=== PATIENT | male | born 1945 | race Caucasian/White ===

== ENCOUNTER → 2017-05-21 14:55 | Outpatient (CLI) | payer OTHER, SELFPAY ==
--- NOTE | 2017-05-21 14:59 | RAD_ITS ---
STUDY: X-RAY CHEST REASON FOR EXAM: Male, 71 years old. Cough TECHNIQUE: PA and lateral views of the chest. COMPARISON: Prior study of 06/02/2016 FINDINGS: The lungs are clear and expanded. There is no demonstrated pleural abnormality. Status post aortic root repair changes are noted. Normal mediastinum and chilango. Normal visualized pulmonary arteries. Normal visualized aortic arch and descending thoracic aorta. There are diffuse degenerative changes of the visualized thoracic spine. Normal visualized ribs, clavicles, and shoulders. There is no demonstrated abnormality of the visualized soft tissue structures of the upper abdomen. RAD/Chest PA and Lateral IMPRESSION: Status post aortic root repair changes. Degenerative changes of the thoracic spine. No acute cardiopulmonary disease process is seen. Electronically Signed: Jitendra Barber MD at 16:20 EST , Service support ,
== END ==
PROVIDERS: Family Provider Nurse Practitioner; PCP Nurse Practitioner; Visit Provider Nurse Practitioner Gerontology
DX: R09.89 Other specified symptoms and signs involving the circulatory and respiratory systems (principal)
CPT/HCPCS: 71046

== ENCOUNTER → 2017-06-06 06:54 | Outpatient (CLI) | payer OTHER, SELFPAY ==
[2017-06-06 07:11] LABS: Bacteria 0 SEEN /hpf (None Seen); Mucous, Urine 0 SEEN /hpf (<or=2+); Red Blood Cells-Urine 0 SEEN /hpf (0-5); Squamous Epithelial Cells - UA 0 SEEN /hpf (0-5); White Blood Cells 0 SEEN /hpf (0-5)
[2017-06-06 08:01] LABS: Absolute Lymphocyte Count 1.45 X10^3/ul (0.83-4.51); Absolute Neutrophil Count 4.4 X10^3/uL (2.0-7.7); Basophil# 0.03 X10^3/uL; Basophil% 0.4 % (0-1); Eosinophil# 0.11 X10^3/uL; Eosinophils% 1.6 % (0-5); Hematocrit 39.1 % (40-54); Hemoglobin 13.2 g/dl (13.0-16.5); Lymphocyte # 1.45 X10^3/ul (4.0); Lymphocyte % 20.8 % (19-41); Mean Corp Hgb Conc 33.8 g/gl (32-36); Mean Corpuscular Hgb 31.1 pg (27.0-32.0); Mean Corpuscular Volume 92.2 fL (80-94); Mean Platelet Vol. 12.9 fl (6.2-12.0); Monocyte% 14.3 % (0-10); Neutrophil # 4.38 X10^3/uL (2.7-7.7); Neutrophil % 62.8 % (47-70); POSITIVE COUNT NO; POSITIVE DIFFERENTIAL NO; POSITIVE MORPHOLOGY NO; Platelet Count 116 K/mm3 (150-450); RBC Distribution Width CV 12.3 % (11.6-14.6); RBC Distribution Width SD 40.5 fl (35.1-43.9); Red Blood Count 4.24 M/mm3 (4.6-6.2)
[2017-06-06 08:03] LABS: Color, Urine Yellow (Yellow); Glucose, Dipstick Normal (Normal); Ketone-Dipstick Negative (Negative); Leukocyte Esterase-Dipstick Negative /ul (Negative); Nitrite-Dipstick Negative (Negative); Occult Blood-Urine Negative /ul (Negative); Protein-Dipstick Negative (Negative); Specific Gravity, Urine 1.005 (1.002-1.030); Urine Bilirubin Dipstick Negative (Negative); Urine Clarity Clear (Clear); Urine Urobilinogen Normal (Normal)
[2017-06-06 08:45] LABS: AST(SGOT) 24 U/L (15-37); Alanine Aminotransfer ALT/SGPT 27 U/L (16-61); Albumin, Serum 3.8 g/dL (3.2-5.0); Alkaline Phosphatase 29 U/L (45-117); Anion Gap 8 (5-15); BUN 14 mg/dL (7-18); BUN/Creat Ratio 17.4 RATIO (10-20); Bilirubin, Direct 0.11 mg/dL (0.00-0.30); Calcium,Total 8.6 mg/dL (8.5-10.1); Chloride 101 mmol/L (98-107); Cholesterol 119 mg/dL (200); Creatinine, Serum 0.81 mg/dL (0.70-1.30); EST Glomerular Filtration Rate 100 mL/min (>60); Est Glom Filt Rate - Afr Amer 121 mL/min (>60); Globulin 3.4 g/dL (2.2-4.2); Glucose 149 mg/dL (74-106); High Density Lipoprotein 38 mg/dL; Potassium 4.2 mmol/L (3.5-5.1); Protein, Total 7.2 g/dL (6.4-8.2); Sodium Level 136 mmol/L (136-145); Thyroid Stim Hormone (TSH) 2.13 uIU/mL (0.358-3.74); Triglycerides 159 mg/dL; Very Low Density Lipoprotein 32 mg/dL (5-40)
== END ==
PROVIDERS: Family Provider Nurse Practitioner; PCP Nurse Practitioner; Visit Provider Physician Assistant Medical
DX: E78.5 Hyperlipidemia, unspecified (principal); Z79.899 Other long term (current) drug therapy
CPT/HCPCS: 80048; 80061; 80076; 81001; 84443; 85025

== ENCOUNTER → 2017-09-24 12:44 | Outpatient (CLI) | payer OTHER, SELFPAY ==
--- NOTE | 2017-09-24 12:46 | ECHOCS_ITS ---
Reason For Study: TAVR Procedure This was a 2D Doppler, Color Flow transthoracic echocardiogram. The exam was of poor technical quality due to diminished acoustic windows. The study was technically difficult. Contrast injection was performed. Exam performed in department. Left Ventricle Normal LV size. Left ventricular systolic function is normal. The estimated ejection fraction is 65 %. Normal diastology for age. No regional wall motion abnormalities noted. Right Ventricle Normal RV size. Normal systolic function. Atria The left atrium is mildly enlarged. Normal right atrium. No doppler evidence for ASD. Mitral Valve There is mild mitral annular calcification. Mild diffuse mitral valve thickening. Trivial mitral valve insufficiency. Tricuspid Valve Normal tricuspid valve. Trivial tricuspid valve insufficiency. Unable to estimate RV systolic pressure/pulmonary artery pressure due to technically difficult study. Aortic Valve Stable appearing bioprosthetic aortic valve apparatus. Pulmonic Valve The pulmonic valve is not well visualized. Great Vessels Normal sized aortic root. Pericardium/Pleural No pericardial effusion. Medication 22 gauge I.V. with prn adaptor inserted into right arm. Diluted definity 2ml given slow IV push to enhance endocardial definition. MMode/2D Measurements & Calculations LVIDd: 4.1 cm IVSd: 1.2 cm LVOT diam: 2.0 cm LVIDs: 2.2 cm LVPWd: 1.3 cm LVOT area: 3.0 cm2 FS: 46.2 % ACS: 1.6 cm LAV(MOD-sp4): 48.4 ml LA A4 area: 19.0 cm2 LA dimension: 4.4 cm RA A4 area: 14.4 cm2 Time Measurements MV dec time: 0.33 sec Doppler Measurements & Calculations MV E max jaspal: 85.4 cm/sec Lat Peak E' Jaspal: 9.5 cm/sec Med Peak E' Jaspal: 8.3 cm/sec MV A max jaspal: 126.0 cm/sec E/E' lat: 9.0 E/E' med: 10.3 MV E/A: 0.68 MV V2 max: 122.1 cm/sec MV P1/2t max jaspal: 117.6 cm/sec Ao V2 max: 245.7 cm/sec MV max P.0 mmHg MV P1/2t: 77.3 msec Ao max P.1 mmHg MV V2 mean: 72.1 cm/sec MV dec slope: 445.8 cm/sec2 Ao V2 mean: 165.2 cm/sec MV mean P.4 mmHg MVA(P1/2t): 2.8 cm2 Ao mean P.4 mmHg MV V2 VTI: 34.3 cm Ao V2 VTI: 45.9 cm MVA(VTI): 2.1 cm2 NICHOLAS(I,D): 1.6 cm2 NICHOLAS(V,D): 1.2 cm2 LV V1 max: 98.9 cm/sec SV(LVOT): 71.9 ml PA V2 max: 64.2 cm/sec LV V1 max P.9 mmHg LV V1 mean P.2 mmHg LV V1 mean: 69.2 cm/sec LV V1 VTI: 23.8 cm Interpretation Summary The study was technically difficult. Contrast injection was performed. Left ventricular systolic function is normal. The estimated ejection fraction is 65 %. The left atrium is mildly enlarged. There is mild mitral annular calcification. Mild diffuse mitral valve thickening. Trivial mitral valve insufficiency. Trivial tricuspid valve insufficiency. Stable appearing bioprosthetic aortic valve apparatus. Unable to estimate RV systolic pressure/pulmonary artery pressure due to technically difficult study. Normal diastology for age. Ordering Physician: Ken Fitzgerald Referring Physician: Ken Fitzgerald Performed By: Sav Snyder RCS
== END ==
PROVIDERS: Family Provider Nurse Practitioner; PCP Nurse Practitioner; Visit Provider Internal Medicine Cardiovascular Disease
DX: Z95.2 Presence of prosthetic heart valve (principal)
CPT/HCPCS: 93306; Q9957; A4216; C8929

== ENCOUNTER → 2017-10-06 14:13 | Outpatient (CLI) | payer OTHER, SELFPAY ==
[2017-10-06 16:34] LABS: PSA,Total - Annual Screen 4.02 ng/mL (0.00-4.00)
== END ==
PROVIDERS: Family Provider Nurse Practitioner; PCP Nurse Practitioner; Visit Provider Urology
DX: Z12.5 Encounter for screening for malignant neoplasm of prostate (principal)
CPT/HCPCS: 36415; 84153; G0103

== ENCOUNTER 2017-12-16 14:30 | Outpatient (RCR) | payer OTHER, SELFPAY ==
--- NOTE | 2017-08-26 19:01 | MASS.EVAL_ITS ---
Massage Therapy Evaluation: Initial Evaluation Date: 08/13/2017 SUBJECTIVE: Luigi is a 71 year old male who was referred to the [facility] facility for a massotherapy evaluation by Dr. Sharyn Aguilar with the diagnosis of msucle pain. Luigi presents today with the symptoms of neck and upper back pain and tension. He complains of low back and hips. This low back and Right hip pain is due to a fall. OBJECTIVE: Upon observation Luigi has poor posture with his head forward and shoulders forward from the neutral position in sitting and standing. After examination and palpation I found Luigi to have very high muscle tension with tenderness and myofascial restrictions in his sub occipitals, trapezius, rhomboids, scalenes, thoracic paraspinals. His hips and lumbar region were also tight. The first treatment consisted of a one hour massage to his full body with myofascial release, muscle stripping, trigger point compression techniques, and cervical manual traction. ASSESSMENT: I feel that Luigi is a good candidate for massotherapy at this time. He had a favorable response to the first treatment with reduction in his muscle aches, pain and tension. He also had improvement in his cervical flexibility. PLAN: The plan of care was reviewed with the patient. The patient is to be seen on as needed basis for a total of ten sessions with the recommendation of once every four weeks for a one hour treatment. Viviane Prieto LMT
--- NOTE | 2018-03-23 13:41 | MASS.DISCH ---
Massage Therapy Discharge Summary: Discharge Date: 03/23/2018 Luigi was seen for a massotherapy evaluation on 08/20/2017 with the diagnosis of muscle pain. He was treated with Five sessions of massage therapy consisting of light to moderate pressure soft tissue techniques, myofascial release and trigger point compression to his cervical, thoracic, lower back, upper extremities and hips. Luigi responded well to the therapy by reporting decreased tension and pain throughout his neck, shoulders, lower back and hips. His goals for therapy were not met due to no follow up treatment sessions performed but stated massage helped him. At this time this patient is being discharged from our care at [facility] facility.
== END 2017-12-16 19:00 | disposition home or self-care (01) ==
LOC: MASS 14:30
PROVIDERS: Family Provider Nurse Practitioner; PCP Nurse Practitioner; Visit Provider Nurse Practitioner
DX: M79.1 Myalgia (principal)
CPT/HCPCS: 97124

== ENCOUNTER → 2017-12-23 13:41 | Outpatient (CLI) | payer OTHER, SELFPAY ==
--- NOTE | 2017-12-23 13:45 | RAD_ITS ---
STUDY: X-RAY - LUMBAR SPINE REASON FOR EXAM: Male, 72 years old. Injury in September, pain, increased recently. Trouble getting from sitting to standing. TECHNIQUE: 5 view(s) of the lumbar spine were obtained. COMPARISON: None FINDINGS: There is straightening of the normal lumbar lordosis. There is no substantial scoliosis. There is a normal alignment of the vertebrae. There is multilevel endplate spondylosis of the lumbar vertebrae with lateral spurring. There is multi-level degenerative disc disease with multi-level disc space narrowing. There is facet arthropathy with neural foraminal narrowing L4-5, 5 and S1. There is atherosclerotic calcification of the abdominal aorta without a demonstrated aneurysm. RAD/L/S Spine Min 4 Views IMPRESSION: Degenerative changes as above, neural foraminal narrowing L4-5, 5 S1 with facet arthropathy. There is straightening of the normal lordotic curve, a nonspecific finding, which may be due to positioning or which might be due to muscle spasm. Electronically Signed: Chanda Pinzon MD at 8:11 EDT , Service support ,
== END ==
PROVIDERS: Family Provider Nurse Practitioner; PCP Nurse Practitioner; Visit Provider Nurse Practitioner
DX: M54.5 Low back pain (principal)
CPT/HCPCS: 72110

== ENCOUNTER 2018-01-15 14:00 | Outpatient (RCR) | payer OTHER, SELFPAY ==
--- NOTE | 2017-12-25 15:15 | HP.PTEVAL_ITS ---
Patient's Visit Information FELICIA MIRELES is a 72 year old M referred to Physical Therapy by Sharyn Aguilar with a diagnosis of LBP. Date of Evaluation: 12/25/17 Physical Therapist: Jay Wharton PT, - Visit Plan Frequency: 2-3x /Week Duration: 4 Weeks Plan: Postural edu, SKTC/DKTC, core stab ex's, nustep, and HEP - Subjective Subjective: Pt reports he fell three momths ago while falling at [place]. Pt reports he has not had any kind of treatment for his LBP except for an injection and 5 massage therapy appointments which have not helped. Pain is centralized for the most part. Every now and then pt reports of a pain that extends down his R hip region to the lateral mid thigh. Pt reports his pain is worse with prolonged sitting. Pt reports he also gets increased pain with prolonged standing and walking. Pt has had xrays, which revealed deg changes throughout. Pt notes diff with sleep secondary to pain. Pt reports getting out of bed is the worst as far a pain is concerned. 3/10 at rest, 9/10 at worst ( getting out of bed in the morning.) - Pain LBP Pain Intensity (Out of 10): 3 Pain Intensity Range: 9 - Objective Neuro: B LE sensation is WNL to light touch. B patellar tendon reflex= 1/3. MMT : R hip flex, knee flex= 4-/5. All other LE's 5/5 throughout. L/S ROM: Pt is severely limited in all planes - Goals Goal 1:: Decrease LBP x 50% to aid with sleep Goal Time Frame: 4-6 Weeks Goal 2:: Increase L/S ROM x 1 grade to aid with IADL's Goal Time Frame: 4-6 Weeks Goal 3:: Increase B LE MMT x 1 grade to aid with prolonged ambulation Goal Time Frame: 4-6 Weeks Goal 4:: I with HEP Goal Time Frame: 4-6 Weeks - Rehabilitation Potential Physical Therapy Diagnosis: Pt has LBP, limited L/S ROM, and LE weakness secondary to deg changes in the L/S Rehabilitation Potential: Good - Anticipated Interventions Patient/Client Instruction: Educate patient on: Condition, Plan of Care For the Purpose of:: To improve self management Therapeutic Exercise to Include: Strength training, Endurance training, Postural training, Flexibilty training, Dynamic Lumbar Stabilization For the Purpose of:: To decrease pain, To increase ROM, To improve muscle performance and motor function Other electric stimulation: Yes Cryotherapy (ice pack, ice massage): Yes Thermo therapy (hot pack): Yes For the Purpose of:: To decrease pain Thank you for the opportunity to evaluate your patient. For Medicare and Medicare HMO plans, please review the plan of care and approve it. It will need to be FAXED BACK to us at [phone] for Medicare purposes. Please let me know if there are questions or concerns regarding this plan of care. Physician Signature: Date:
--- NOTE | 2018-01-15 14:33 | HP.PTDCSUM ---
HP - PT D/C Summary It has been my pleasure to treat FELICIA MIRELES under orders from Sharyn Aguilar NP, for the diagnosis of LBP for a total of 10 visit(s). Discharge Date: Please see the following information for a summary of their discharge status. - Subjective Subjective: Minor pain this date - Pain LBP Pain Intensity (Out of 10): 1 - Overall Improvement % Improvement: 80 - Objective Objective/Function: LBP 04/15 today. Pt is now I with HEP. B LE MMT 5/5 throughout. All ROM in LB is WNL with exception to ext which is moderately limited - Goals Goal 1:: Decrease LBP x 50% to aid with sleep Goal Progress: Goal Met Goal 2:: Increase L/S ROM x 1 grade to aid with IADL's Goal Progress: Progressing Goal 3:: Increase B LE MMT x 1 grade to aid with prolonged ambulation Goal Progress: Goal Met Goal 4:: I with HEP Goal Progress: Goal Met - Plan Plan: Discharge - D/C Information If there are questions or concerns regarding this patient's physical therapy, please feel free to call me at [phone]. Thank you for the referral of this patient. Sincerely, Jay Wharton, PT,
== END 2018-01-15 19:00 | disposition home or self-care (01) ==
LOC: PT 14:00
PROVIDERS: Family Provider Nurse Practitioner; PCP Nurse Practitioner; Visit Provider Nurse Practitioner
DX: M54.5 Low back pain (principal)
CPT/HCPCS: 97014; 97110; 97161; 97530; G0283

== ENCOUNTER → 2018-10-16 07:07 | Outpatient (CLI) | payer OTHER, SELFPAY ==
[2018-04-14 14:00] VITALS: BMI 30.9
[2018-10-16 08:15] LABS: AST(SGOT) 22 U/L (15-37); Alanine Aminotransfer ALT/SGPT 23 U/L (16-61); Albumin, Serum 3.8 g/dL (3.2-5.0); Alkaline Phosphatase 33 U/L (45-117); Bilirubin, Direct 0.11 mg/dL (0.00-0.30); Cholesterol 110 mg/dL (200); High Density Lipoprotein 36 mg/dL; Protein, Total 6.8 g/dL (6.4-8.2); Triglycerides 136 mg/dL; Very Low Density Lipoprotein 27 mg/dL (5-40)
== END ==
PROVIDERS: Family Provider Nurse Practitioner; PCP Nurse Practitioner; Referring Provider Internal Medicine Cardiovascular Disease; Visit Provider Internal Medicine Cardiovascular Disease
DX: E78.2 Mixed hyperlipidemia (principal)
CPT/HCPCS: 36415; 80061; 80076

== ENCOUNTER → 2018-11-09 13:41 | Outpatient (CLI) | payer OTHER, SELFPAY ==
[2018-10-21 14:00] VITALS: BMI 30.9
--- NOTE | 2018-11-09 13:43 | ECHOCS_ITS ---
Reason For Study: VALVE REPLACEMENT Procedure This was a 2D Doppler, Color Flow transthoracic echocardiogram. The study was technically difficult. Contrast injection was performed. Exam performed in department. Left Ventricle Normal LV size. Left ventricular systolic function is normal. The estimated ejection fraction is 65 %. Post operative septal motion. No evidence for diastolic dysfunction. No regional wall motion abnormalities noted. Right Ventricle Normal RV size. Normal systolic function. Atria The left atrium is mildly enlarged. Normal right atrium. No doppler evidence for ASD. Mitral Valve There is no mitral annular calcification. Mild diffuse mitral valve thickening. Mild focal mitral valve calcification of the anterior leaflet. Trivial mitral valve insufficiency. Tricuspid Valve Normal tricuspid valve. Trivial tricuspid valve insufficiency. Right ventricular systolic pressure estimated to be 22 mmHg. Aortic Valve Stable appearing bioprosthetic aortic valve apparatus. Pulmonic Valve The pulmonic valve is not well visualized. Great Vessels Normal sized aortic root. Pericardium/Pleural No pericardial effusion. Medication 22 gauge I.V. with prn adaptor inserted into right arm. Diluted definity 4ml given slow IV push to enhance endocardial definition. MMode/2D Measurements & Calculations LVIDd: 4.4 cm IVSd: 0.90 cm LVOT diam: 2.0 cm LVIDs: 3.0 cm LVPWd: 0.99 cm RVDd: 4.2 cm FS: 32.0 % LVOT area: 3.2 cm2 Ao root diam: 3.3 cm LAV(MOD-bp): 60.2 ml EDV(MOD-sp4): 99.5 ml LAV(MOD-bp) Indexed: 27.5 ml/m2 ESV(MOD-sp4): 41.1 ml LAV(MOD-sp2): 51.4 ml EF(MOD-sp4): 58.7 % LAV(MOD-sp4): 63.3 ml EDV(MOD-sp2): 113.7 ml SV(MOD-sp4): 58.4 ml SV(MOD-sp2): 67.6 ml EF(MOD-sp2): 59.5 % LA dimension(2D): 4.1 cm LA A4 area: 20.4 cm2 RA A4 area: 13.4 cm2 Time Measurements MV dec time: 0.22 sec Doppler Measurements & Calculations MV E max jaspal: 97.7 cm/sec Lat Peak E' Jaspal: 8.8 cm/sec Med Peak E' Jaspal: 7.8 cm/sec MV A max jaspal: 117.8 cm/sec E/E' lat: 11.1 E/E' med: 12.5 MV E/A: 0.83 MV V2 max: 108.8 cm/sec Ao V2 max: 242.7 cm/sec LV V1 max: 97.0 cm/sec MV max P.7 mmHg Ao max P.6 mmHg LV V1 max P.8 mmHg MV V2 mean: 64.7 cm/sec Ao V2 mean: 174.8 cm/sec LV V1 mean P.3 mmHg MV mean P.9 mmHg Ao mean P.6 mmHg LV V1 mean: 72.6 cm/sec MV V2 VTI: 36.9 cm Ao V2 VTI: 52.6 cm LV V1 VTI: 22.9 cm MVA(VTI): 2.0 cm2 NICHOLAS(I,D): 1.4 cm2 NICHOLAS(V,D): 1.3 cm2 SV(LVOT): 72.6 ml TR max jaspal: 218.1 cm/sec MV P1/2t-pr_phl: 77.3 msec TR max P.1 mmHg Interpretation Summary The study was technically difficult. Contrast injection was performed. Left ventricular systolic function is normal. The estimated ejection fraction is 65 %. Post operative septal motion. The left atrium is mildly enlarged. Mild diffuse mitral valve thickening. Mild focal mitral valve calcification of the anterior leaflet. Trivial mitral valve insufficiency. Trivial tricuspid valve insufficiency. Stable appearing bioprosthetic aortic valve apparatus. Right ventricular systolic pressure estimated to be 22 mmHg. No evidence for diastolic dysfunction. Ordering Physician: Ken Fitzgerald Referring Physician: MICHELLE ISAAC Performed By: Eloisa Velasquez, RDCS, RVT
== END ==
PROVIDERS: Family Provider Nurse Practitioner; PCP Nurse Practitioner; Referring Provider Internal Medicine Cardiovascular Disease; Visit Provider Internal Medicine Cardiovascular Disease
DX: Z95.2 Presence of prosthetic heart valve (principal)
CPT/HCPCS: 93306; Q9957; A4216; C8929

== ENCOUNTER → 2019-02-12 06:56 | Outpatient (CLI) | payer OTHER, SELFPAY ==
[2018-10-21 14:00] VITALS: BMI 30.9
[2019-02-12 08:42] LABS: Hemoglobin A1c 7.7 % (4.2-6.3)
[2019-02-12 08:47] LABS: ALB/GLOB Ratio 1.2 RATIO (0.9-2.4); AST(SGOT) 18 U/L (15-37); Alanine Aminotransfer ALT/SGPT 28 U/L (16-61); Albumin, Serum 4.1 g/dL (3.2-5.0); Alkaline Phosphatase 39 U/L (45-117); Anion Gap 6 (5-15); BUN 17 mg/dL (7-18); BUN/Creat Ratio 19.9 RATIO (10-20); Calcium,Total 8.9 mg/dL (8.5-10.1); Chloride 103 mmol/L (98-107); Creatinine, Serum 0.86 mg/dL (0.70-1.30); EST Glomerular Filtration Rate 93 mL/min (>60); Est Glom Filt Rate - Afr Amer 113 mL/min (>60); Globulin 3.3 g/dL (2.2-4.2); Glucose 171 mg/dL (74-106); Magnesium 1.8 mg/dL (1.6-2.6); PSA,Total - Annual Screen 3.86 ng/mL (0.00-4.00); Potassium 4.2 mmol/L (3.5-5.1); Protein, Total 7.4 g/dL (6.4-8.2); Sodium Level 136 mmol/L (136-145); Thyroid Stim Hormone (TSH) 2.98 uIU/mL (0.358-3.74)
== END ==
PROVIDERS: Family Provider Nurse Practitioner; PCP Nurse Practitioner; Referring Provider Nurse Practitioner; Visit Provider Nurse Practitioner
DX: I11.9 Hypertensive heart disease without heart failure (principal); E83.42 Hypomagnesemia; E11.9 Type 2 diabetes mellitus without complications; Z12.5 Encounter for screening for malignant neoplasm of prostate
CPT/HCPCS: 36415; 80053; 83036; 83735; 84153; 84443; G0103

== ENCOUNTER → 2020-06-02 06:47 | Outpatient (CLI) | payer OTHER, SELFPAY ==
[2018-10-21 14:00] VITALS: BMI 30.9
[2020-05-21 15:54] VITALS: BMI 30.8
[2020-06-02 07:57] LABS: Absolute Lymphocyte Count 1.59 X10^3/uL (0.83-4.51); Absolute Neutrophil Count 3.3 X10^3/uL (2.0-7.7); Basophil# 0.03 X10^3/uL; Basophil% 0.5 % (0-1); Eosinophil# 0.09 X10^3/uL; Eosinophils% 1.6 % (0-5); Hematocrit 41.7 % (40-54); Hemoglobin 14.1 g/dL (13.0-16.5); Lymphocyte # 1.59 X10^3/ul (4.0); Lymphocyte % 27.7 % (19-41); Mean Corp Hgb Conc 33.8 g/dL (32-36); Mean Corpuscular Hgb 31.3 pg (27.0-32.0); Mean Corpuscular Volume 92.5 fL (80-94); Mean Platelet Vol. 12.4 fl (6.2-12.0); Monocyte# 0.71 X10^3/uL; Monocyte% 12.3 % (0-10); NRBC Flagged by Analyzer 0 % (0-5); Neutrophil # 3.32 X10^3/uL (2.7-7.7); Neutrophil % 57.7 % (47-70); Platelet Count 139 K/mm3 (150-450); RBC Distribution Width SD 41.2 fl (35.1-43.9); Red Blood Count 4.51 M/mm3 (4.6-6.2); White Blood Count 5.8 K/mm3 (4.4-11.0)
[2020-06-02 08:26] LABS: Microalbumin,Random Urine 13.5 mg/L (NO RANGE EST.); Microalbumin:Creatinine Ratio 31.9 mg/g CRE (<30 mg/g CRE)
[2020-06-02 08:35] LABS: ALB/GLOB Ratio 1.2 RATIO (0.9-2.4); AST(SGOT) 17 U/L (15-37); Alanine Aminotransfer ALT/SGPT 31 U/L (16-61); Albumin, Serum 3.9 g/dL (3.2-5.0); Alkaline Phosphatase 40 U/L (45-117); Anion Gap 7 (5-15); BUN 18 mg/dL (7-18); BUN/Creat Ratio 20.2 RATIO (10-20); Chloride 100 mmol/L (98-107); Cholesterol 115 mg/dL (200); Creatinine, Serum 0.89 mg/dL (0.70-1.30); EST Glomerular Filtration Rate 89 mL/min (>60); Est Glom Filt Rate - Afr Amer 107 mL/min (>60); Globulin 3.2 g/dL (2.2-4.2); Glucose 206 mg/dL (74-106); High Density Lipoprotein 43 mg/dL; PSA,Total - Annual Screen 3.76 ng/mL (0.00-4.00); Protein, Total 7.1 g/dL (6.4-8.2); Sodium Level 135 mmol/L (136-145); Thyroid Stim Hormone (TSH) 3.59 uIU/mL (0.358-3.74); Triglycerides 139 mg/dL; Very Low Density Lipoprotein 28 mg/dL (5-40)
[2020-06-02 09:11] LABS: Hemoglobin A1c 8.1 % (3.8-5.6)
== END ==
PROVIDERS: PCP Nurse Practitioner; Visit Provider Nurse Practitioner Adult Health
DX: I11.9 Hypertensive heart disease without heart failure (principal); R97.20 Elevated prostate specific antigen [PSA]; E11.9 Type 2 diabetes mellitus without complications; Z12.5 Encounter for screening for malignant neoplasm of prostate
CPT/HCPCS: 36415; 80053; 80061; 82043; 82570; 83036; 84153; 84443; 85025; G0103

== ENCOUNTER → 2020-06-05 06:26 | Outpatient (CLI) | payer OTHER, SELFPAY ==
[2020-05-21 15:54] VITALS: BMI 30.8
--- NOTE | 2020-06-05 08:36 | STRESSREP ---
Stress Test Report Date: Procedure: Pharmacologic stress nuclear imaging study Indications: Chest pain; CAD; PCI; CABG; status post TAVR Consent: Per the patient Procedure: The patient underwent pharmacologic (Regadenoson 0.4mg ) evaluation with a peak heart rate of 95 beats per minute (65%predicted maximal heart rate) and a peak blood pressure of 150/70 mmHg. The baseline ECG demonstrated normal sinus rhythm; poor R wave progression; nonspecific ST segment abnormality. The peak pharmacologic ECG demonstrated T wave abnormality/inversion in leads II, III, aVF, and V3 through V6 with notation in recovery of somewhat more prominent ST/T wave change in the aforementioned leads with subsequent gradual resolution towards baseline. There were no cardiac dysrhythmias pretest, during pharmacologic infusion, or recovery. The patient noted epigastric discomfort which was subsequently treated with supplemental O2 and nitroglycerin sublingual spray x1 with subsequent spontaneous resolution in recovery. The examination was discontinued secondary to completion of protocol. Impression: 1. Pharmacologic (Regadenoson) evaluation 2. Peak pharmacologic ECG with T wave abnormality/inversion in leads II, III, aVF, and V3 through V6 with notation in recovery of somewhat more prominent ST/T wave change in the aforementioned leads with subsequent gradual resolution towards baseline. 3. There were no cardiac dysrhythmias pretest, during pharmacologic infusion, or recovery. 4. Nuclear images pending Myocardial perfusion imaging study: Technique: The patient was injected with 14.3 millicuries of technetium 99m Cardiolite and subsequently rest SPECT Cardiolite nuclear imaging was obtained in the horizontal long, vertical long, and short axis views. The patient underwent pharmacologic (Regadenoson) evaluation with a peak heart rate of 95 beats per minute (65% percent predicted maximal heart rate) and a peak blood pressure of 150/70 mmHg. The patient was injected with 45.0 millicuries of technetium 99m Cardiolite and subsequently stress SPECT Cardiolite nuclear imaging was obtained in the horizontal long, vertical long, and short axis views. A gated Cardiolite study at peak stress was obtained. Interpretation: Rest and stress SPECT Cardiolite nuclear imaging status post realignment, normalization, and attenuation correction, demonstrate on the preattenuation correction images an area of subtle diminished tracer uptake in portions of the basal inferolateral segments at both rest and stress which appears to be more prominent in the mid inferolateral segments status post stress and on the post attenuation correction images similar changes with respect to the basal inferolateral segment with subtle notation of diminished tracer uptake in the mid inferolateral segment status post stress. There is diminished end systolic thickening and brightening in the aforementioned areas. The gated Cardiolite study demonstrates myocardial thickening and inward wall motion. The reported LVEF is 59%. Impression: 1. Rest and stress by current nuclear imaging demonstrate myocardial perfusion changes concerning for an area of previous myocardial injury/infarction following portions of the basal inferolateral segments as well as concerning for an area of stress-induced myocardial ischemia in portions of the mid inferolateral segments. 2. The gated Cardiolite study reports an LVEF of 599%. This note was generated with [employer] software. It may contain incorrect words, spelling, and punctuation that were not noted in checking the note before signing.
== END ==
PROVIDERS: PCP Nurse Practitioner; Referring Provider Nurse Practitioner Family; Visit Provider Nurse Practitioner Family
DX: I25.111 Atherosclerotic heart disease of native coronary artery with angina pectoris with documented spasm (principal); R07.9 Chest pain, unspecified; I47.2 Ventricular tachycardia; I10 Essential (primary) hypertension; E78.2 Mixed hyperlipidemia; I47.1 Supraventricular tachycardia; Z95.1 Presence of aortocoronary bypass graft; Z95.5 Presence of coronary angioplasty implant and graft; Z95.2 Presence of prosthetic heart valve
CPT/HCPCS: 78452; 93017; A9500; A4216; J2785

== ENCOUNTER 2020-06-08 08:52 | Day surgery (SDC) | payer OTHER, SELFPAY ==
[2020-05-21 15:54] VITALS: BMI 30.8
--- NOTE | 2020-06-06 13:51 | RAD_ITS ---
STUDY: X-RAY CHEST REASON FOR EXAM: Male, 74 years old. Pre-operative TECHNIQUE: PA and lateral views of the chest. COMPARISON: 05/21/2017 FINDINGS: There is no new focal consolidation. Sternal cerclage wires are present from a prior sternotomy. The cardiac silhouettes within normal limits. Normal mediastinum and chilango. Normal visualized pulmonary arteries. Stable visualized aortic arch and descending thoracic aorta. Normal visualized thoracic spine. Normal visualized ribs, clavicles, and shoulders. There is no demonstrated abnormality of the visualized soft tissue structures of the upper abdomen. RAD/Chest PA and Lateral IMPRESSION: No acute cardiopulmonary process. Electronically Signed: Nasima Zhao MD at 17:02 EST Tel , Service support ,
[2020-06-06 14:45] LABS: International Normalized Ratio 1.1; Prothrombin Time (Protime)PT. 13.2 SECONDS (11.7-14.9)
[2020-06-07 10:47] VITALS: BMI 30.8
--- NOTE | 2020-06-07 19:24 | HP.PCM_ITS ---
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 [place] [address] OFFICE VISIT Date of Service: 05/21/20 MR#: [id number] Acct: [id number] Name: FELICIA MIRELES Rep #: [id number] : 1945 Provider: TUSHAR Anguiano Age/Sex: 74/M Location: [email or web address] Status: Signed [facility] History of Present Illness Details: FELICIA MIRELES, is a 74 M who presents to the office today for outpatient cardiovascular follow-up. Overall with respect to his history of CAD, PCI, CABG, aortic valve stenosis status post transcatheter aortic valve replacement, hyperlipidemia, and hypertension he states he is doing well. He denies arm, jaw, or neck discomfort. His exercise tolerance is stable. He denies symptoms of palpitations, lightheadedness, dizziness, near syncope, or syncopal episodes. He denies edema or claudication issues. He denies orthopnea, PND, fever, chills, blood in urine, blood in stool, or myalgia. He states noting over the last 1-2 months he noted left/center chest pain. This does not radiate. This improves with NTG and resolves in 10-15 minutes. He describes this as a steady achiness. This is worse with walking. He states when shoveling snow, this is noted after such activity. This has occurred upwards to 2-3 times a day. He rates this a 3-07/14. He denies this as prior to CABG or PCI. He states SOB over the last 1-2 months. This is noted with walking and bending. This improves with rest. This appears to be worsening. His lower extremity edema is unchanged. He states when bending forward he sometimes keep going. He states lower energy level over the last 1-2 months. He states at urology office his blood pressure was 130s/60s. Intake Vital Signs 05/21/20 Height 5 ft 11 in 05/21/20 Weight: 221 lb 05/21/20 BMI 30.8 05/21/20 BP 156/70 H 05/21/20 Blood Pressure Location Lt brachial 05/21/20 Position Sitting 05/21/20 Respiration 14 05/21/20 Pulse 73 05/21/20 Pulse Source Monitor 05/21/20 Pulse Oximetry (%) 97 05/21/20 Oxygen Delivery Method room air Intake Visit Reasons: overdue for OV Product Analyst Required: No Accompanied by: Self Is patient in pain?: No Allergies celecoxib [From Celebrex] Adverse Reaction (Verified 05/21/20 15:54) Unknown simvastatin Adverse Reaction (Verified 05/21/20 15:54) Unknown Medications Alfuzosin HCl [Uroxatral] 10 mg PO DAILY 06/10/16 [History Confirmed 05/21/20] Aspirin E.C. [Ecotrin] 81 mg PO DAILY@0800 06/10/16 [History Confirmed 05/21/20] Ranitidine HCl [Acid Channel Lip Stiffener Insoles] 150 mg PO BID 06/10/16 [History Confirmed 05/21/20] Sitagliptin Phosphate [Januvia] 100 mg PO DAILY 06/10/16 [History Confirmed 05/21/20] metFORMIN HCl [Glucophage] 1,000 mg PO BIDCM 06/10/16 [History Confirmed 05/21/20] amoxicillin 500 mg capsule 500 mg PO .COMPLEX cap 04/29/17 [History Confirmed 05/21/20] liraglutide 0.6 mg/0.1 mL (18 mg/3 mL) subcutaneous pen injector 0.6 mg SC QDAY 06/17/17 [History Confirmed 05/21/20] losartan 50 mg tablet 50 mg PO DAILY #90 tab 11/15/19 [Rx Confirmed 05/21/20] rosuvastatin 5 mg tablet 5 mg PO DAILY #90 tab 12/22/19 [Rx Confirmed 05/21/20] clopidogrel 75 mg tablet 75 mg PO DAILY #90 tab 01/11/20 [Rx Confirmed 05/21/20] isosorbide mononitrate 120 mg tablet,extended release 24 hr 120 mg PO QAM #90 tab 05/21/20 [Rx Confirmed 05/21/20] metoprolol succinate 50 mg tablet,extended release 24 hr 50 mg PO DAILY #90 tab 05/21/20 [Rx Confirmed 05/21/20] nitroglycerin 400 mcg/spray translingual 0.4 mg TRANSLINGUAL Q5M PRN #4.9 g 05/21/20 [Rx Confirmed 05/21/20] [facility] Medical History Mixed hyperlipidemia (Chronic) Essential hypertension (Chronic) Presence of stent in coronary artery (Chronic ~04/14/07) Intermittent claudication (Chronic) 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 (Chronic) Aortic stenosis (Chronic) Paroxysmal atrial tachycardia (Chronic) Paroxysmal ventricular tachycardia (Chronic) Diabetes mellitus (Chronic) Dizziness and giddiness (Chronic) Precordial chest pain (Chronic) Shortness of breath (Chronic) Hypertension (Inactive) Surgical History Presence of aortocoronary bypass graft (Chronic ~02/09/07) History of percutaneous transluminal coronary angioplasty (Chronic) H/O aortic valve replacement (Chronic ~08/20/16) History of appendectomy (Resolved) History of carpal tunnel surgery (Resolved) History of cholecystectomy (Resolved) History of shoulder surgery (Resolved) Family History Father Cancer Mother Cancer Brother CAD (coronary artery disease) Hx CABG Sister Diabetes Social History (Updated 05/22/20 @ 10:00 by Maurizio Anguiano BIBLE TEACHER, BIBLE TEACHER-C) Smoking Status: Never smoker alcohol intake: never substance use type: does not use caffeine: Yes Type: coffee what type of physical activity do you participate in: none seatbelt use: always do you feel safe at home: Yes ROS Const Const: Negative for fatigue, weakness, body ache, fever(s) or chills ENT ENT: Negative for dizziness Cardio Chest Pain: Yes Palpitations: No Edema: Bilateral Muscle aches with walking: None Resp Respiratory: Positive for SOB with activity; negative for SOB at rest, SOB orthopnea\SOB lying down or paroxysmal nocturnal dyspnea GI GI: Negative nausea, vomiting blood/hematemesis, bright, red blood in stools or black,tarry stools : Negative for hematuria or frequent nighttime urination/ nocturia Musc Musc: Negative for muscle aches/ myalgia Skin Skin: Negative non-healing lesions or rash Neuro Neuro: Negative for dizziness, lightheadedness, near syncope, syncope, ortho static symptoms or weakness Endo Endo: Negative for fatigue Allergy Allergy/Immunology: Negative for rash Cardiology Exam Const Appearance: cooperative, healthy appearing, comfortable and no acute distress Nutritional Appearance: well nourished and obese Orientation: alert, awake and oriented x3 Head Head: normal to inspection Ears: hearing grossly normal bilaterally Nose: external nose normal Face and Sinus: face symmetric Mouth: oral mucosae normal Eyes General: appearance normal, both eyes and all related structures Eyelids: eyelids normal EOM: EOM intact bilaterally Neck Neck: normal visual inspection and no JVD Carotids: normal carotid upstroke Chest Chest inspection: normal inspection of the chest, symmetric chest movement and normal respiratory effort; negative cough Auscultation: Bilateral: Clear to Auscultation Cardio Rate: regular rate Rhythm: regular rhythm Heart sounds: S1 normal and S2 normal; negative rub, gallop or murmur GI GI: normal to inspection and obese Neuro General: alert, awake, oriented x3 and CN's II-XI intact bilaterally Skin Skin: no rashes or lesions noted Extremities Pulses: Normal: Right Posterior Tibial Pulse, Left Posterior Tibial Pulse, Right Radial Pulse, Left Radial Pulse Lower Extremity Edema: None: Bilateral Psych Psychological: normal affect Assessment & Plan 1. Atherosclerosis of [place] coronary artery of [place] heart with angina pectoris with documented spasm I25.111 Plan Patient does acknowledge chest pain, shortness of breath with activity, and fatigue that is concerning for progressive coronary artery disease. His chest pain typically improves with rest and nitroglycerin. Given his previous history of coronary artery disease requiring stenting and CABG in conjunction to his symptoms, he was asked undergo stress test to evaluate further. He was asked to continue with as needed nitroglycerin. Over time, we could consider increasing isosorbide or metoprolol therapy. We could consider adding additional antianginal medications. His stress test will help guide treatment further. Orders Orders: 2 Nuclear Stress Test - Chemical 05/21/20 2. Presence of aortocoronary bypass graft Z95.1 CABG X 4, [place] to LAD, SVG sequentially to high lateral & lateral Cx & SVG independently to RCA using endovein harvest system; TAVR 08/20/16 @ [facility] Plan As noted above, he will proceed with stress test to evaluate further. Orders Orders: Nuclear Stress Test - Chemical 05/21/20 3. Presence of stent in coronary artery Z95.5 2006 Stent of ostium first marginal of CX & Bare metal stent to aorto- ostio SVG to CX 04/14/07 Plan He will continue current medical therapy which includes aspirin, Plavix, isosorbide, losartan, metoprolol, and rosuvastatin. Orders Orders: Nuclear Stress Test - Chemical 05/21/20 4. H/O aortic valve replacement Z95.2 S/P TAVR with a 26 mm Jackson Orestes 3 valve in August 2016 at [facility]; Plan His most recent echocardiogram in November 2018 showed an ejection fraction of 65% and stable appearing bioprosthetic aortic valve apparatus. We will consider repeat echocardiogram to component to his symptoms if his stress test is nonrevealing or there are no further concerns regarding coronary artery disease. Orders Orders: Nuclear Stress Test - Chemical 05/21/20 5. Paroxysmal atrial tachycardia I47.1 Plan This appears stable. He will continue current beta-ailyn medication. We will continue to monitor. Orders Orders: Nuclear Stress Test - Chemical 05/21/20 6. Paroxysmal ventricular tachycardia I47.2 Plan He will continue metoprolol therapy. We will continue to monitor. Orders Orders: Nuclear Stress Test - Chemical 05/21/20 7. Essential hypertension I10 Plan His blood pressure slightly elevated today in office. He states this is unusual for him. He was asked to monitor this closely at home. If no source of his symptoms are found and he is noted to continue with elevated blood pressure, he may benefit from tighter blood pressure control to help alleviate symptoms. Orders Orders: Nuclear Stress Test - Chemical 05/21/20 8. Mixed hyperlipidemia E78.2 Plan He will continue current statin medication. Orders Orders: 2 Nuclear Stress Test - Chemical 05/21/20 Plan Detail Other Orders Orders: Nuclear Stress Test - Chemical 05/21/20 R07.9 Other Medications Refilled: isosorbide mononitrate ER 120 mg PO QAM 90 tabs 3RF nitroglycerin (Nitrolingual) until response; do not exceed 3 doses per event 0.4 mg translingual Q5M PRN 4.9 grams 3RF chest pain metoprolol succinate ER 50 mg PO DAILY 90 tabs 3RF Additional Comments Further recommendation will be based on stress test. He will return to office in approximately 1 month to evaluate overall progress and ensure progressing as expected. Thank you for allowing us to participate in the patients plan of care, if you have any questions please do not hesitate to call. This note was generated using a voice recognition system and there may be incorrect words, spelling or punctuation that were not noted when reviewing the office note prior to saving. Follow Up 1 Month (BIBLE TEACHER/PA) 10 Months (PFM) Coding Level of Care Code Off vis,est,level 4 Diagnoses Atherosclerosis of [place] coronary artery of [place] heart with angina pectoris with documented spasm I25.111 ??[place] vs. transplanted heart: [place] heart Presence of aortocoronary bypass graft Z95.1 Presence of stent in coronary artery Z95.5 H/O aortic valve replacement Z95.2 Paroxysmal atrial tachycardia I47.1 Paroxysmal ventricular tachycardia I47.2 Essential hypertension I10 Mixed hyperlipidemia E78.2 Coding Level of Care Code Off vis,est,level 4 Diagnoses Atherosclerosis of [place] coronary artery of [place] heart with angina pectoris with documented spasm I25.111 ??[place] vs. transplanted heart: [place] heart Presence of aortocoronary bypass graft Z95.1 Presence of stent in coronary artery Z95.5 H/O aortic valve replacement Z95.2 Paroxysmal atrial tachycardia I47.1 Paroxysmal ventricular tachycardia I47.2 Essential hypertension I10 Mixed hyperlipidemia E78.2 Supplemental Info Supplemental Information Transthoracic echocardiogram: 11/09/2018: Interpretation Summary The study was technically difficult. Contrast injection was performed. Left ventricular systolic function is normal. The estimated ejection fraction is 65 %. Post operative septal motion. The left atrium is mildly enlarged. Mild diffuse mitral valve thickening. Mild focal mitral valve calcification of the anterior leaflet. Trivial mitral valve insufficiency. Trivial tricuspid valve insufficiency. Stable appearing bioprosthetic aortic valve apparatus. Right ventricular systolic pressure estimated to be 22 mmHg. No evidence for diastolic dysfunction. Transthoracic echocardiogram: 09/24/2017 Left ventricular systolic function is normal. The estimated ejection fraction is 65 %. The left atrium is mildly enlarged. There is mild mitral annular calcification. Mild diffuse mitral valve thickening. Trivial mitral valve insufficiency. Trivial tricuspid valve insufficiency. Stable appearing bioprosthetic aortic valve apparatus. Unable to estimate RV systolic pressure/pulmonary artery pressure due to technically difficult study. Normal diastology for age. Cardiac catheterization: 06/11/2016 Final impression: 1. Mild elevation of the left ventricular end-diastolic pressure compatible decreased diastolic compliance 2. Borderline elevation of the intrapulmonary right heart pressures 3. Oxygen saturation: No obvious evidence of intracardiac shunting phenomena 4. Left ventricle: A. Normal left ventricular size, wall motion, and systolic function B. Estimated LVEF is 65% 5. Left main coronary artery: A. Distal calcification and distal 75% hazy eccentric appearing stenosis in volving the bifurcation of the LAD and LCx systems 6. Left anterior descending coronary artery: A. Ostial 85% eccentric hazy appearing stenosis B. The mid to distal LAD appears to fill from competitive flow from both antegrade flow but predominantly from the [place] graft flow 7. Left circumflex coronary artery: A. Ostial calcification with ostial 75% eccentric hazy appearing stenosis B. The first OM appears to be occluded C. The first OM fills from a sequential SVG graft coming from the second OM D. The mid to distal LCx system demonstrates 50% and 25% diffuse eccentric appearing stenosis 8. Right coronary artery: A. Large dominant vessel B. Approximately 100% occluded C. Distal RCA system/right PDA fills from the SVG graft D. It demonstrates no angiographically significant appearing disease distal to the graft attachment E. It also demonstrates the appearance of right to left collateral flow coursing towards the LCx/OM system 9. [place] to the LAD: A. Patent with no angiographically significant appearing stenosis in the LAD status post a graft attachment demonstrates no angiographically significant appearing stenosis 10. SVG to the LCx: Sequential graft to OM1 and OM 2: A. Proximal: 100% occluded B. Sequential portion between OM1 and OM 2 remains patent 11. SVG graft to the RCA system: A. Patent with no angiographically significant appearing disease 12. Aortic valve: A. Mean gradient: 43 mmHg B. Aortic valve area: 0.9 cm? compatible with severe aortic valve stenosis Labs LDL Cholesterol 47 mg/dL (0-130) 10/16/18 HDL Cholesterol 36 mg/dL (40-) L 10/16/18 Triglycerides 136 mg/dL (-199) 10/16/18 VLDL Cholesterol 27 mg/dL (5-40) 10/16/18 Diagnostics Echocardiogram 11/09/18 05/22/20 1000 <Electronically signed by Maurizio FINLEY> Date _ Maurizio FINLEY The patient underwent further evaluation with an exercise tolerance test/imaging study. The results are noted below. ADDENDUM by Dr. Ken Fitzgerald MD on 06/05/20 at 0918 Addendum: Impression correction: The impression should read as follows: Impression: 1. Rest and stress by current nuclear imaging demonstrate myocardial perfusion changes concerning for an area of previous myocardial injury/infarction following portions of the basal inferolateral segments as well as concerning for an area of stress-induced myocardial ischemia in portions of the mid inferolateral segments. 2. The gated Cardiolite study reports an LVEF of 59%. 06/05/20 0918 Date _ Ken Fitzgerald MD cc: TUSHAR Anguiano; TUSHAR Aguilar ~* Signed Stress Test Report Date: 3??2020 Procedure: Pharmacologic stress nuclear imaging study Indications: Chest pain; CAD; PCI; CABG; status post TAVR Consent: Per the patient Procedure: The patient underwent pharmacologic (Regadenoson 0.4mg ) evaluation with a peak heart rate of 95 beats per minute (65%predicted maximal heart rate) and a peak blood pressure of 150/70 mmHg. The baseline ECG demonstrated normal sinus rhythm; poor R wave progression; nonspecific ST segment abnormality. The peak pharmacologic ECG demonstrated T wave abnormality/inversion in leads II, III, aVF, and V3 through V6 with notation in recovery of somewhat more prominent ST/T wave change in the aforementioned leads with subsequent gradual resolution towards baseline. There were no cardiac dysrhythmias pretest, during pharmacologic infusion, or recovery. The patient noted epigastric discomfort which was subsequently treated with supplemental O2 and nitroglycerin sublingual spray x1 with subsequent sp ontaneous resolution in recovery. The examination was discontinued secondary to completion of protocol. Impression: 1. Pharmacologic (Regadenoson) evaluation 2. Peak pharmacologic ECG with T wave abnormality/inversion in leads II, III, aVF, and V3 through V6 with notation in recovery of somewhat more prominent ST/T wave change in the aforementioned leads with subsequent gradual resolution tow ards baseline. 3. There were no cardiac dysrhythmias pretest, during pharmacologic infusion, or recovery. 4. Nuclear images pending Myocardial perfusion imaging study: Technique: The patient was injected with 14.3 millicuries of technetium 99m Cardiolite and subsequently rest SPECT Cardiolite nuclear imaging was obtained in the horizontal long, vertical long, and short axis views. The patient underwent pharmacologic (Regadenoson) evaluation with a peak heart rate of 95 beats per minute (65% percent predicted maximal heart rate) and a peak blood pressure of 150/70 mmHg. The patient was injected with 45.0 millicuries of technetium 99m Cardiolite and subsequently stress SPECT Cardiolite nuclear imaging was obtained in the horizontal long, vertical long, and short axis views. A gated Cardiolite study at peak stress was obtained. Interpretation: Rest and stress SPECT Cardiolite nuclear imaging status post realignment, normalization, and attenuation correction, demonstrate on the preattenuation correction images an area of subtle diminished tracer uptake in portions of the basal inferolateral segments at both rest and stress which appears to be more prominent in the mid inferolateral segments status post stress and on the post attenuation correction images similar changes with respect to the basal inferolateral segment with subtle notation of diminished tracer uptake in the m id inferolateral segment status post stress. There is diminished end systolic thickening and brightening in the aforementioned areas. The gated Cardiolite study demonstrates myocardial thickening and inward wall motion. The reported LVEF is 59%. Impression: 1. Rest and stress by current nuclear imaging demonstrate myocardial perfusion changes concerning for an area of previous myocardial injury/infarction following portions of the basal inferolateral segments as well as concerning for an area of stress-induced myocardial ischemia in portions of the mid inferolateral segments. 2. The gated Cardiolite study reports an LVEF of 599%. The above was discussed and reviewed with the patient. Based upon the above the recommendation was made for reevaluation in the cardiac catheterization l aboratory. The procedure and risk were discussed with the patient. He was agreeable to this approach. I have re-examined the patient. There are no clinical changes since date of exam. Procedure Criteria Procedure Type: Elective COVID Risk Discussion: The surgeon/proceduralist and patient have discussed in detail the risk of exposure to and/or potential harm posed by the COVID-19 virus with having a surgery/procedure at this time versus the risk of delaying the surgery/procedure. It is not possible to know either the risk of delaying the surgery or procedure or chance of getting an infection with perfect accuracy, but a joint decision was made between the patient and the surgeon/proceduralist to proceed at this time with the scheduled surgery/procedure as indicated on the consent form.
[2020-06-08] VITALS (7 sets, daily range): BP systolic 121–132; BP diastolic 63–74; PULSE 60–75; RESP 16–18; TEMP 35.7–36; O2SAT 97–100
--- NOTE | 2020-06-08 13:19 | CL.PCI_ITS ---
PCI Cardiac Cath Report PCI Report: Procedure performed; Attempted PCI of proximal left circumflex into left main/protected left main; With failure of passing the balloon over the wire, to determine the position of the wire as intraluminal. Approach right common femoral artery approach: Preprocedure diagnosis this patient is 74-year-old Patient has extensive cardiac history history of carotid bypass surgery, at the TAVR for severe aortic stenosis then in [facility] He was being seen by his a primary turner machine and cardiac catheterization was performed Patient had CABG x4, [place] to LAD, SVG sequentially to high lateral and lateral circumflex, SVG independently to RCA using Endo vein harvest system and he had TAVR in August 20, 2016. Patient had a stress test which is positive in the left circumflex distribution And review of the cardiac angiography revealed patency of the [place] to LAD as well patency of SVG to the RCA and occluded rest of the grafts. Based on his clinical presentation as well as occluded sequential graft proximal portion from prior cardiac catheterization we plan to proceed with the attempted PCI of the distal left main into the proximal circumflex. Interventional equipment and plan; 1. 6 English JL 4 guide catheter 2. Tried multiple wires extra floppy run-through wire, BMW wire, PT extra- support and also , [id number] balloon technique. Patient was given 300 Plavix, he also was given 6000 of heparin Multiple attempts to place the wire intraluminally was not successful with the difficulty of crossing the lesion which is heavily calcified subtotal 95%. Patient remained stable during this procedure he does not have any active symptoms of chest pain and his cardiac monitors showed no ST change. Following this all catheter removed Selective right common femoral artery angiography obtained and a Perclose used to close arteriotomy site with no complication in the Cash Management Coordinator Conclusion and recommendation; This patient had large left circumflex artery which will need revascularization and he had heavily calcified proximal distal left main and left circumflex into the proximal circumflex Based on the clinical presentation and as we have no backup since surgery and this facility patient will be transferred to a tertiary facility for attempting PCI of the distal left main into the circumflex. He remains stable he does not have symptoms of chest pain he does not require intra-aortic balloon. Rachana Trujillo MD,FAC,[facility]
[2020-06-08] MEDS: 0.9% Normal Saline 1,000 ML 75 ML IV (13:35)
--- NOTE | 2020-06-08 14:34 | CL.D_ITS ---
Patient Name: FELICIA MIRELES Study Date: 06/08/2020 Performing: Ken Fitzgerald MD Ht: 70.87 inches 180 cm : 1945 Wt: 220.46 lbs 100 kg Age: 74 Gender: male BSA: 2.2 PROCEDURE(S) PERFORMED DT99-SDS/COR/CABG CLINICAL PROFILE AND INDICATIONS Indications: Suspected CAD Heart Failure: None Stress/Imaging Date: 06/05/2020tress Test with SPECT MPI: Positive Intermediate Risk Angina Classification Anginal Classification w/in 2 Weeks: CCS III CAD Presentations: Stable angina. CONCLUSIONS [place] Multivessel CAD C[place] to LAD: patent with no angiographically significant appearing disease distal to the [place] attachm ent SVG to OM: occluded proximally with the sequential portion between OM1 and OM2 remaining patent with no angiographically significant disease distal to the graft attachments RECOMMENDATIONS Risk factor modification Medical therapy Referred for immediate PCI DESCRIPTION OF PROCEDURE The patient arrived to the procedure lab. The risks and benefits of the procedure as well as a full d escription of our services here and current unavailability of surgical backup were fully explained to the patient and/or their significant other prior to the catheterization. The Timeout was completed, verifying the correct patient and procedure. The patient's procedural site was prepped and draped in the usual fashion. Local anesthetic was given subcutaneously to right groin region with Lidocaine 2%. Using a modified Seldinger technique, arterial access was obtained via the right femoral artery, a 4 Fr sheath was inserted Left Coronary Artery selective angiography was performed in multiple views us ing a 4 Fr. JL5 catheter. Right Coronary Artery selective angiography was then performed in multiple views using a 4 Fr. 3DRC catheter. Left internal mammary artery graft to the LAD selective angiograph y was performed in multiple views using a 4 Fr. JR4 catheter.Contrast was injected through the sheath and the Right Iliac and Femoral artery were assessed for possible closure device.The arter ial sheath was pulled and a Perclose closure device was deployed for hemostasis CORONARY ANGIOGRAPHY DOMINANCE: Right Dominant LEFT MAIN: Proximal: Eccentric: 25% stenosis LEFT ANTERIOR DESCENDING ARTERY: PROX LAD: Moderate calcification, is occluded CIRCUMFLEX ARTERY: OSTIAL CIRC: Moderate calcification, 95 % Stenosis MID CIRC: Mild luminal irregularities OM 1: Proximal - is occluded RIGHT CORONARY ARTERY: PROX RCA: is occluded GRAFTS: [place] graft to the Mid LAD is patent Saphenous Vein graft to the 1st OM is totally occluded proximally with the sequential portion between OM1 and OM2 remaining patent with no angiographically significant disease distal to the graft attach ments COMPLICATIONS No Complications PROCEDURE MEDICATIONS Versed 1 mg IV Oxygen: 2 L/min via nasal cannula Heparin 7000 unit(s) IV 06/08/2020 12:13:03 Plavix 300 mg PO 06/08/2020 12:08:43 SUMMARY OF HEMODYNAMIC DATA Time AIR REST ECG 09:23:29 AO 132/61 (91) SA 11:39:43 Signed By Ken Fitzgerald MD On 06/08/2020 2:44:50 PM Signed By Ken Fitzgerald MD On 06/08/2020 2:33:53 PM Ken Fitzgerald MD
--- NOTE | 2020-06-08 14:36 | CASEMGMT ---
According to the [facility] [employer] website, the following are in-network tertiary facilities: [facility], [place], [place], [facility], [facility], [facility], [place], [facility], and . Tadeo SPARKS CM
--- NOTE | 2020-06-08 16:29 | PCM.DC.CCA ---
Discharge Diet: Low fat/ Low Cholesterol Lifting Restrictions: 10 pounds and also avoid any pushing or pulling for 3 days after your test. Call your doctor if your incision/area has: Continuous Slow Oozing, Sudden Increased Bleeding, Increased Pain/ Swelling, Increased Redness, Foul Smelling Discharge, Swelling at the incision site Call your doctor if you observe: Dizziness, Chest pain Additional Dressing/Incision Instructions:: Keep the dressing (bandage) on until the next morning. You may then shower, but do not take a tub bath for 5 days after your test. It is normal to have some tenderness and discomfort at the puncture site. Sometimes bruising also occurs. However, if pain, numbness, or coldness occurs below the puncture site (in your leg, toes, arms or fingers) call your doctor at once. You may have a small, marble sized knot at the puncture site. This is normal. Do not rub it. It will go away in 4-6 weeks. Bleeding can occur from the area where the puncture was done. Blood may spurt or drip from the site. If blood spurts, apply pressure right away to stop bleeding and call 911. Although rare, bleeding into the tissue (hematoma) can also occur. If this happens, a large, firm area goose egg under the skin will appear. If any of these occur, lie down as flat as you can and have someone apply firm pressure to the cath site with a gauze pad or a clean washcloth for 10-15 minutes. Call 911 or go to the Emergency Department. Additional Instructions: You can not stop your plavix for at least one year. At your next OV we can further discuss cardiac rehab Please keep you appt that was previous scheduled with Maurizio Anguiano NP Allergies/Adverse Reactions: Allergies celecoxib [From Celebrex] Adverse Reaction (Verified 06/07/20 10:49) Unknown simvastatin Adverse Reaction (Verified 06/07/20 10:49) Unknown Medications to take at Discharge Alfuzosin HCl [Uroxatral] 10 mg PO DAILY 06/10/16 Aspirin E.C. [Ecotrin] 81 mg PO DAILY@0800 06/10/16 Sitagliptin Phosphate [Januvia] 100 mg PO DAILY 06/10/16 metFORMIN HCl [Glucophage] 1,000 mg PO BIDCM 06/10/16 liraglutide 0.6 mg/0.1 mL (18 mg/3 mL) subcutaneous pen injector 0.6 mg SC QDAY 06/17/17 losartan 50 mg tablet 50 mg PO DAILY #90 tab 11/15/19 clopidogrel 75 mg tablet 75 mg PO DAILY #90 tab 01/11/20 isosorbide mononitrate 120 mg tablet,extended release 24 hr 120 mg PO QAM #90 tab 05/21/20 metoprolol succinate 50 mg tablet,extended release 24 hr 50 mg PO DAILY #90 tab 05/21/20 nitroglycerin 400 mcg/spray translingual 0.4 mg TRANSLINGUAL Q5M PRN #4.9 g 05/21/20 Cyclobenzaprine HCl 5 - 10 mg PO Q8 PRN 06/08/20 Furosemide [Lasix] 20 mg PO DAILY PRN 06/08/20 Omeprazole 20 mg PO DAILY 06/08/20 Rosuvastatin Calcium 10 mg PO DAILY 06/08/20 Primary Care Physician: Sharyn Aguilar NP, SPECIAL CERTIFICATE DICTATOR-C [Primary Care Provider] - Test Results: Test results from this visit will be discussed in further detail at your follow-up appointment, if applicable. Please Follow Up With: Maurizio Anguiano NP, SPECIAL CERTIFICATE DICTATOR-C When: 06/18 at 2pm Cardiac Rehabilitation Info Cardiac Rehabilitation Program Information: Cardiac Rehabilitation is important for patients like you who are recovering from a heart problem. Cardiac rehabilitation programs are recognized as integral to the continued care of the patient with coronary heart disease. The cardiac rehabilitation program is designed to optimize a patient's physical, psychological, and social functioning. Health career center advisor work in cardiac rehabilitation programs and assist you with getting the treatments you need to get stronger and healthier - like exercise, healthy eating habits, and medications. Cardiac rehabilitation has been show to help people with heart problems live longer and have better life enjoyment than people who do not go to cardiac rehabilitation. Please contact the Cardiac Rehabilitation Program at [facility] at in two weeks if you have not heard from them.
--- NOTE | 2020-06-08 17:41 | NURSING ---
1600-report called to [facility] rn with no quesstions. transportation called to set up. aware of room number and visiting policy
--- NOTE | 2020-06-08 21:22 | NURSING ---
Gave report to [facility] Pt will be leaving here shortly. [facility] updated on departure time. BRIDGER Kimble.
== END 2020-06-08 21:43 | disposition short-term general hospital (02) ==
LOC: CLSP 12:03 → PCU 22:14
PROVIDERS: Nurse Practitioner Family; PCP Nurse Practitioner; Referring Provider Internal Medicine Cardiovascular Disease; Visit Provider Internal Medicine Cardiovascular Disease
DX: I25.111 Atherosclerotic heart disease of native coronary artery with angina pectoris with documented spasm (principal); R94.39 Abnormal result of other cardiovascular function study; I47.1 Supraventricular tachycardia; I47.2 Ventricular tachycardia; I25.82 Chronic total occlusion of coronary artery; E78.2 Mixed hyperlipidemia; I10 Essential (primary) hypertension; Z95.2 Presence of prosthetic heart valve; Z95.1 Presence of aortocoronary bypass graft; Z79.899 Other long term (current) drug therapy; Z79.02 Long term (current) use of antithrombotics/antiplatelets; Z79.82 Long term (current) use of aspirin
CPT/HCPCS: 36415; 71046; 85610; 87426; 92928; 93455; 99152; 99153; J7030; J7040; Q9967; C1725; C1769; C1887; C1894; C9600

== ENCOUNTER → 2020-09-25 13:44 | Outpatient (CLI) | payer OTHER, SELFPAY ==
[2020-09-21 13:51] VITALS: BMI 30.4
--- NOTE | 2020-09-25 13:47 | US_ITS ---
STUDY: SUPERFICIAL ULTRASOUND - RIGHT ARM REASON FOR EXAM: Male, 74 years old. Rt arm mass TECHNIQUE: A superficial ultrasound was performed with real-time and static vogt-scale imaging. COMPARISON: None. FINDINGS: Multiple longitudinal and transverse ultrasound images of the right arm demonstrate a 2.8 cm isoechoic area within the subcutaneous fat which may represent normal fat or lipoma. US/Ext Non Vasc Limited/Soft Tiss IMPRESSION: Normal fat or lipoma corresponding to the palpable abnormality. MRI with contrast may be useful. Electronically Signed: Deondre Higgins MD at 11:51 EDT Tel , Service support ,
== END ==
PROVIDERS: PCP Nurse Practitioner; Referring Provider Nurse Practitioner Family; Visit Provider Nurse Practitioner Family
DX: M79.601 Pain in right arm (principal); R22.30 Localized swelling, mass and lump, unspecified upper limb
CPT/HCPCS: 76882

== ENCOUNTER → 2020-12-29 06:56 | Outpatient (CLI) | payer OTHER, SELFPAY ==
[2020-12-29 07:50] LABS: Absolute Neutrophil Count 3.4 X10^3/uL (2.0-7.7); Basophil# 0.03 X10^3/uL; Basophil% 0.5 % (0-1); Eosinophil# 0.11 X10^3/uL; Eosinophils% 1.9 % (0-5); Hematocrit 40.1 % (40-54); Hemoglobin 13.3 g/dL (13.0-16.5); Lymphocyte % 26.4 % (19-41); Mean Corp Hgb Conc 33.2 g/dL (32-36); Mean Corpuscular Hgb 30.9 pg (27.0-32.0); Mean Platelet Vol. 12.8 fl (6.2-12.0); Monocyte# 0.67 X10^3/uL; Monocyte% 11.8 % (0-10); NRBC Flagged by Analyzer 0 % (0-5); Neutrophil # 3.35 X10^3/uL (2.7-7.7); Platelet Count 134 K/mm3 (150-450); RBC Distribution Width CV 12.3 % (11.6-14.6); RBC Distribution Width SD 41.8 fl (35.1-43.9); Red Blood Count 4.31 M/mm3 (4.6-6.2); White Blood Count 5.7 K/mm3 (4.4-11.0)
[2020-12-29 08:13] LABS: AST(SGOT) 15 U/L (15-37); Alanine Aminotransfer ALT/SGPT 24 U/L (16-61); Albumin, Serum 3.5 g/dL (3.2-5.0); Alkaline Phosphatase 41 U/L (45-117); Anion Gap 5 (5-15); BUN 14 mg/dL (7-18); BUN/Creat Ratio 16.1 RATIO (10-20); Calcium,Total 8.8 mg/dL (8.5-10.1); Chloride 101 mmol/L (98-107); Cholesterol 90 mg/dL (200); Creatinine, Serum 0.87 mg/dL (0.70-1.30); EST Glomerular Filtration Rate 91 mL/min (>60); Est Glom Filt Rate - Afr Amer 110 mL/min (>60); Globulin 3.6 g/dL (2.2-4.2); Glucose 219 mg/dL (74-106); High Density Lipoprotein 39 mg/dL; Magnesium 1.7 mg/dL (1.6-2.6); Potassium 4.1 mmol/L (3.5-5.1); Protein, Total 7.1 g/dL (6.4-8.2); Sodium Level 136 mmol/L (136-145); Thyroid Stim Hormone (TSH) 3.64 uIU/mL (0.358-3.74); Triglycerides 90 mg/dL; Very Low Density Lipoprotein 18 mg/dL (5-40)
== END ==
PROVIDERS: PCP Nurse Practitioner; Referring Provider Nurse Practitioner; Visit Provider Nurse Practitioner
DX: E11.9 Type 2 diabetes mellitus without complications (principal); E83.42 Hypomagnesemia; I11.9 Hypertensive heart disease without heart failure
CPT/HCPCS: 36415; 80053; 80061; 83036; 83735; 84443; 85025

== ENCOUNTER → 2021-08-29 | Outpatient (CLI) | payer OTHER, SELFPAY | END | disposition home or self-care (01) | LOC: LAB 14:56 | PROVIDERS: PCP Nurse Practitioner; Referring Provider Urology; Visit Provider Urology | DX: Z12.5 Encounter for screening for malignant neoplasm of prostate (principal) | CPT/HCPCS: 36415; 84153; G0103 ==

== ENCOUNTER → 2021-09-30 | Outpatient (CLI) | payer OTHER, SELFPAY ==
[2021-09-30 07:26] LABS: Absolute Lymphocyte Count 0.95 X10^3/uL (0.83-4.51); Absolute Neutrophil Count 3.4 X10^3/uL (2.0-7.7); Basophil# 0.03 X10^3/uL; Basophil% 0.6 % (0-1); Eosinophil# 0.04 X10^3/uL; Eosinophils% 0.8 % (0-5); Hematocrit 34.9 % (40-54); Hemoglobin 11.4 g/dL (13.0-16.5); Lymphocyte # 0.95 X10^3/ul (0.83-4.51); Mean Corp Hgb Conc 32.7 g/dL (32-36); Mean Corpuscular Volume 91.8 fL (80-94); Mean Platelet Vol. 11.2 fl (6.2-12.0); Monocyte# 0.56 X10^3/uL; Monocyte% 11.2 % (0-10); NRBC Flagged by Analyzer 0 % (0-5); Neutrophil # 3.41 X10^3/uL (2.7-7.7); Neutrophil % 68.2 % (47-70); Platelet Count 196 K/mm3 (150-450); RBC Distribution Width CV 12.6 % (11.6-14.6); RBC Distribution Width SD 41.4 fl (35.1-43.9)
[2021-09-30 07:49] LABS: Microalbumin,Random Urine 39.9 mg/L (NO RANGE EST.); Microalbumin:Creatinine Ratio 30.7 mg/g CRE (<30 mg/g CRE)
[2021-09-30 08:02] LABS: ALB/GLOB Ratio 0.9 RATIO (0.9-2.4); AST(SGOT) 18 U/L (15-37); Alanine Aminotransfer ALT/SGPT 19 U/L (16-61); Albumin, Serum 3.3 g/dL (3.2-5.0); Alkaline Phosphatase 43 U/L (45-117); Anion Gap 8 (5-15); BUN 12 mg/dL (7-18); BUN/Creat Ratio 15.5 RATIO (10-20); Chloride 101 mmol/L (98-107); Cholesterol 96 mg/dL (200); Creatinine, Serum 0.77 mg/dL (0.70-1.30); EST Glomerular Filtration Rate 104 mL/min (>60); Est Glom Filt Rate - Afr Amer 126 mL/min (>60); Globulin 3.8 g/dL (2.2-4.2); Glucose 174 mg/dL (74-106); High Density Lipoprotein 35 mg/dL; Magnesium 1.5 mg/dL (1.6-2.6); Potassium 3.8 mmol/L (3.5-5.1); Protein, Total 7.1 g/dL (6.4-8.2); Sodium Level 136 mmol/L (136-145); Thyroid Stim Hormone (TSH) 3.97 uIU/mL (0.358-3.74); Triglycerides 81 mg/dL; Very Low Density Lipoprotein 16 mg/dL (5-40)
[2021-09-30 08:43] LABS: Vitamin D,25 Hydroxy 37.1 ng/mL
[2021-09-30 08:48] LABS: Hemoglobin A1c 7.5 % (3.8-5.6)
== END | disposition home or self-care (01) ==
PROVIDERS: PCP Nurse Practitioner Family; Referring Provider Internal Medicine; Visit Provider Internal Medicine
DX: E11.9 Type 2 diabetes mellitus without complications (principal); E83.42 Hypomagnesemia
CPT/HCPCS: 36415; 80053; 80061; 82043; 82306; 82570; 83036; 83735; 84443; 85025

== ENCOUNTER → 2021-11-26 | Outpatient (CLI) | payer OTHER, SELFPAY ==
--- NOTE | 2021-11-26 | PROSBIL_PTH ---
PATIENT: FELICIA MIRELES LOC: [facility] U#:[id number] AGE/SX: 76/M ROOM: RE11/26/[address]: Dr. Mango Hernández MD : 1945 BED: DIS: 11/26/2021 SPEC #: [id number] RECD: 11/26/21 16:48 STATUS: DEEPIKA REFrancisco #: [id number] LISA: 11/26/21 00:[address]: Mango Hernández DEPT: SURGICAL PATHOLOGY RECD BY: Sean Verduzco ENTERED: 11/27/21 11:38 SP TYPE: PROST BX ABRIL DR: Margarita Porter, REFINERY OPERATOR ASSISTANT-C Tissues: A - PROSTATE RIGHT B - PROSTATE RIGHT C - PROSTATE RIGHT D - PROSTATE LEFT E - PROSTATE LEFT F - PROSTATE LEFT Procedures: PROSTATE BX HEADER OPERATION: Prostate biopsy PRE-OP DIAGNOSIS: Elevated prostate R97.20 TISSUE SUBMITTED: A - Right apex, B - Right mid, C - Right base, D - Left apex, E - Left mid, F - Left base MICROSCOPIC DIAGNOSIS A. Right prostate, apex, core biopsy: Prostate tissue, negative for malignancy. B. Right prostate, mid, core biopsy: Prostate tissue, negative for malignancy. Focal mild chronic inflammation. C. Right prostate, base, core biopsy: Prostate tissue, negative for malignancy. Focal mild chronic inflammation. D. Left prostate, apex, core biopsy: Prostatic stromal tissue, negative for malignancy. Focal mild chronic inflammation. E. Left prostate, mid, core biopsy: Prostate tissue, negative for malignancy. F. Left prostate, base, core biopsy: Prostate tissue, negative for malignancy. SJ:silvino 11/28/2021 MICROSCOPIC DESCRIPTION Slides are reviewed. GROSS DESCRIPTION A - Received is one container designated prostate, right apex. The specimen consists of one elongated fragment of light au-white soft tissue measuring 1 cm in length and 0.1 cm in diameter. The specimen is totally submitted in one cassette. B - Received is one container designated prostate, right mid. The specimen consists of one elongated fragment of light au-white soft tissue measuring 1.5 cm in length and 0.1 cm in diameter. The specimen is totally submitted in one cassette. C - Received is one container designated prostate, right base. The specimen consists of one elongated fragment of light au-white soft tissue measuring 1.5 cm in length and 0.1 cm in diameter. The specimen is totally submitted in one cassette. D - Received is one container designated prostate, left apex. The specimen consists of one elongated fragment of light au-white soft tissue measuring 1.5 cm in length and 0.1 cm in diameter. The specimen is totally submitted in one cassette. E - Received is one container designated prostate, left mid. The specimen consists of one elongated fragment of light au-white soft tissue measuring 1 cm in length and 0.1 cm in diameter. The specimen is totally submitted in one cassette. F - Received is one container designated prostate, left base. The specimen consists of one elongated fragment of light au-white soft tissue measuring 1 cm in length and 0.1 cm in diameter. The specimen is totally submitted in one cassette. / AM:silvino 11/27/2021 TC:3 CPT: G0146
== END | disposition home or self-care (01) ==
LOC: LABSPEC 16:41
PROVIDERS: PCP Nurse Practitioner Family; Referring Provider Urology; Visit Provider Urology
DX: R97.20 Elevated prostate specific antigen [PSA] (principal)
CPT/HCPCS: 88305; G0416

== ENCOUNTER → 2022-01-11 | Outpatient (CLI) | payer OTHER, SELFPAY ==
[2022-01-11 07:06] LABS: Bacteria 0 SEEN /hpf (None Seen); Mucous, Urine 0 SEEN /hpf (<or=2+); Red Blood Cells-Urine 0 SEEN /hpf (0-5); White Blood Cells 0 SEEN /hpf (0-5)
[2022-01-11 07:37] LABS: Color, Urine Yellow (Yellow); Glucose, Dipstick 250 mg/dl (Normal); Ketone-Dipstick Negative (Negative); Leukocyte Esterase-Dipstick Negative /ul (Negative); Nitrite-Dipstick Negative (Negative); Occult Blood-Urine Negative /ul (Negative); Protein-Dipstick 15 mg/dl (Negative); Urine Bilirubin Dipstick Negative (Negative); Urine Clarity Clear (Clear); Urine Urobilinogen Normal (Normal)
[2022-01-11 07:39] LABS: Absolute Lymphocyte Count 1.57 X10^3/uL (0.83-4.51); Absolute Neutrophil Count 3.4 X10^3/uL (2.0-7.7); Basophil# 0.03 X10^3/uL; Basophil% 0.5 % (0-1); Eosinophil# 0.09 X10^3/uL; Eosinophils% 1.6 % (0-5); Hematocrit 40.2 % (40-54); Hemoglobin 13.4 g/dL (13.0-16.5); Lymphocyte # 1.57 X10^3/ul (0.83-4.51); Lymphocyte % 27.3 % (19-41); Mean Corp Hgb Conc 33.3 g/dL (32-36); Mean Corpuscular Hgb 30.5 pg (27.0-32.0); Mean Corpuscular Volume 91.4 fL (80-94); Mean Platelet Vol. 12.1 fl (6.2-12.0); Monocyte# 0.62 X10^3/uL; Monocyte% 10.8 % (0-10); NRBC Flagged by Analyzer 0 % (0-5); Neutrophil # 3.43 X10^3/uL (2.7-7.7); Neutrophil % 59.6 % (47-70); Platelet Count 122 K/mm3 (150-450); RBC Distribution Width CV 12.6 % (11.6-14.6); RBC Distribution Width SD 41.6 fl (35.1-43.9); White Blood Count 5.8 K/mm3 (4.4-11.0)
[2022-01-11 07:43] LABS: Squamous Epithelial Cells - UA 0-5 SEEN /hpf (0-5)
[2022-01-11 08:13] LABS: Ferritin 30 ng/mL (26-388); Iron 80 ug/dL (65-175); Iron Binding Capacity,Total 436 ug/dL (250-450); PERCENT IRON SATURATION 18.3 % (15.0-55.0); T4 Free Direct 0.92 ng/dL (0.76-1.46); Thyroid Stim Hormone (TSH) 4.09 uIU/mL (0.358-3.74)
[2022-01-13 09:23] LABS: Vitamin B12 315 pg/mL (211-911)
== END | disposition home or self-care (01) ==
LOC: LAB 07:00
PROVIDERS: PCP Nurse Practitioner Family; Referring Provider Nurse Practitioner Family; Visit Provider Nurse Practitioner Family
DX: R31.9 Hematuria, unspecified (principal); R79.89 Other specified abnormal findings of blood chemistry; D64.9 Anemia, unspecified
CPT/HCPCS: 36415; 81001; 82607; 82728; 82746; 83540; 83550; 84439; 84443; 85025

== ENCOUNTER → 2022-01-13 | Outpatient (CLI) | payer OTHER, SELFPAY ==
[2022-01-13 11:21] LABS: Hemoglobin A1c 7.9 % (3.8-5.6)
== END | disposition home or self-care (01) ==
LOC: LAB 10:24
PROVIDERS: PCP Nurse Practitioner Family; Visit Provider Nurse Practitioner Family
DX: E11.9 Type 2 diabetes mellitus without complications (principal)
CPT/HCPCS: 83036

== ENCOUNTER 2022-02-14 07:51 | Day surgery (SDC) | payer OTHER, SELFPAY ==
[2022-02-14 08:12] VITALS: BP 140/79; PULSE 67; RESP 16; TEMP 36.6; O2SAT 100; BMI 28.3
[2022-02-14] MEDS: Lactated Ringers 1,000 ML 15 ML IV (08:28)
--- NOTE | 2022-02-14 08:34 | HP.PCM_ITS ---
History and Physical Date of Admission: 02/14/22 Chief Complaint: Colonoscopy Guidance Counselor Required: No Is patient in pain?: No Allergies celecoxib [From Celebrex] Adverse Reaction (Verified 01/14/22 15:15) Unknownsimvastatin Adverse Reaction (Verified 01/14/22 15:15) Unknown Medications alfuzosin 10 mg tablet,extended release 24 hr 10 mg PO DAILY 06/10/16 [History Confirmed 01/14/22] aspirin 81 mg tablet,delayed release 81 mg PO DAILY@0800 06/10/16 [History Confirmed 01/14/22] metformin 1,000 mg tablet 1,000 mg PO BIDCM 06/10/16 [History Confirmed 01/14/22] sitagliptin 100 mg tablet 100 mg PO DAILY 06/10/16 [History Confirmed 01/14/22] furosemide 20 mg tablet 20 mg PO DAILY PRN Swelling 06/08/20 [History Confirmed 01/14/22] omeprazole 20 mg capsule,delayed release 20 mg PO DAILY 06/08/20 [History Confirmed 01/14/22] acetaminophen 325 mg tablet 325 mg PO Q4H PRN 06/13/20 [History Confirmed 01/14/22] liraglutide 0.6 mg/0.1 mL (18 mg/3 mL) subcutaneous pen injector (Victoza 2-Salvatore) 1.2 mg subcut QDAY 09/21/20 [History Confirmed 01/14/22] clopidogrel 75 mg tablet 75 mg PO DAILY #90 tabs 01/14/21 [Rx Confirmed 01/14/22] metoprolol succinate 50 mg tablet,extended release 24 hr 50 mg PO DAILY #90 tabs 05/29/21 [Rx Confirmed 01/14/22] isosorbide mononitrate 120 mg tablet,extended release 24 hr 120 mg PO QAM #90 tabs 06/17/21 [Rx Confirmed 01/14/22] rosuvastatin 20 mg tablet 20 mg PO DAILY #90 tabs 06/17/21 [Rx Confirmed 01/14/22] losartan 25 mg tablet 25 mg PO DAILY #90 tabs 11/28/21 [Rx Confirmed 01/14/22] nitroglycerin 400 mcg/spray translingual (Nitrolingual) 0.4 mg translingual Q5M PRN chest pain #4.9 grams 12/02/21 [Rx Confirmed 10/11/22] PFSH Medical History? 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 H/O aortic valve replacement (~08/20/16) History of appendectomy History of carpal tunnel surgery History of cholecystectomy History of percutaneous transluminal coronary angioplasty History of shoulder surgery Presence of aortocoronary bypass graft (~02/09/07) Family History? Father CancerMother CancerBrother CAD (coronary artery disease) ?? ? Hx CABGSister Diabetes Social History? Smoking Status:? Never smoker alcohol intake:? never substance use type:? does not use caffeine:? Yes Type: coffee what type of physical activity do you participate in:? none seatbelt use:? always do you feel safe at home:? Yes HPI HPI HPI: 76-year-old gentleman is referred by Margarita Porter CNP for surgical consultation regarding possible colonoscopy intervention, our surgical consult recommendations will return to her.? By report the patient had remote colonoscopy 20 years prior.? It is very pertinent that he has had an aortic valve replacement.? This was performed at [facility] August 20, 2016.? By report he has an elevated PSA. 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 He states that for prolonged period of time he has been fatigued.? He does find it difficult to climb a flight of stairs without some dyspnea.? But this has been ongoing.? 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 He works 5 and half hours a day 5 days a week.? Therefore he remains very active. ROS General General: No weight change, appetite, fatigue, colon cancer, breast cancer or weakness HEENT HEENT: Yes eye surgery; No difficulty swallowing, eye injury, swollen glands or hoarseness Endo Endocrine: Yes diabetes mellitus; No thyroid disease, thyroid cancer, Hair loss, heat intolerance or cold intolerance Skin Skin: Yes changing moles; No rash Breast Breast: No left breast lump, right breast lump, nipple discharge, breast pain, abnormal mammogram, abnormal US or breast enlargement Musc Musculoskeletal: Yes back problems and arthritis; No rheumatoid arthritis, gout or joint pain Cardio Cardiovascular: Yes murmur, heart disease, high blood pressure and heart stent; No pacemaker, atrial fibrillation, heart attack, palpitations, shortness of breat with exertion or chest pain Psych Psychiatric: No depression, anxiety or hearing voices Resp Respiratory: Yes shortness of breath, No sleep apnea, No cough, No COPD, No asthma, No emphysema and No wheezing Gastro Gastrointestinal: No abdominal pain, No nausea or vomiting, No diarrhea, No constipation, No blood in stool, No acid reflux, Yes hemorrhoids, No ulcers, No gallbladder problem and No black,tarry stools Vitaliy Hematologic: Yes blood thinners, No blood disorders, Yes bleeding, No anemia and No blood clots Neuro Neurologic: No system reviewed and no additional complaints, except as documented, No as per HPI, No abnormal gait, No abnormal hearing, No abnormal movements, No abnormal speech, No behavioral changes, No burning sensations, No confusion, No convulsions, No disequilibrium, No dizziness, No localized weakness, No frequent falls, No headache(s), No lack of coordination, No loss of vision, No memory loss, Yes numbness, No other visual disturbances, No radicular pain, No restless legs, No sensory deficit, No syncope, Yes tingling, No tremor(s), No weakness and No other Exam Const General: cooperative, comfortable and no acute distress Other: Patient does appear and moves very much consistent with stated age. [facility] Head: normal to inspection Eyes General: appearance normal, both eyes and all related structures Neck Neck: normal visual inspection Chest Chest palpation & inspection: normal inspection of the chest Resp Effort & Inspection: normal respiratory effort Auscultation: clear to auscultation bilaterally Cardio Rate: regular rate Rhythm: regular rhythm GI Inspection: normal to inspection Palpation: soft and no hepatosplenomegaly Skin Other: Diffuse areas of ecchymosis arms lower extremities Neuro General: patient alert and patient awake Extrem General: no calf tenderness Psych Appearance: grossly normal Assessment and Plan Assessment and Plan (1) Screening for intestinal cancer: ?Status:?Acute ?Plan: I recommended the patient a screening colonoscopy with possible biopsy or polypectomy as indicated.? He is aware of the technique, benefit, risk of alternatives.? We will utilize monitored anesthesia care.? He will remain on his aspirin and Plavix and protection of his cardiac stents as well as aortic valve replacement.? We will provide ampicillin 1 g IV at the initiation of his procedure. He has had an opportunity to ask and have questions answered.? We will schedule procedure at his discretion.? I appreciate the opportunity of assisting with the surgical care. Copy: Margarita Porter, JOANA Cornejo M.D., F.A.C.S. I have examined the patient and the H&P has been reviewed. There are no clinical changes since date of exam. Braulio Cornejo M.D., F.A.C.S.
[2022-02-14 08:50] LABS: Bedside Glucose 192 mg/dL (74-106)
[2022-02-14 09:57] VITALS: BP 140/79; BP 96/79; PULSE 70; RESP 16; TEMP 36.6; O2SAT 99
--- NOTE | 2022-02-14 09:57 | OP.COLON_ITS ---
Patient Name: Luigi Diana Procedure Date: 02/14/2022 9:26 AM Date of : 1945 Age: 76 Procedure: Colonoscopy Indications: Screening for colorectal malignant neoplasm Providers: Braulio Cornejo MD Medicines: See the Anesthesia note for documentation of the administered medications Patient Profile: Last Colonoscopy: more than 10 years ago. Complications: No immediate complications. Procedure: Pre-Anesthesia Assessment: - Prior to the procedure, a History and Physical was performed, and patient medications and allergies were reviewed. The patient's tolerance of previous anesthesia was also reviewed. The risks and benefits of the procedure and the sedation options and risks were discussed with the patient. All questions were answered, and informed consent was obtained. Prior Anticoagulants: The patient has taken Plavix (clopidogrel), last dose was day of procedure. ASA Grade Assessment: III - A patient with severe systemic disease. After reviewing the risks and benefits, the patient was deemed in satisfactory condition to undergo the procedure. After I obtained informed consent, the scope was passed under direct vision. Throughout the procedure, the patient's blood pressure, pulse, and oxygen saturations were monitored continuously. The Colonoscope was introduced through the anus and advanced to the cecum, identified by appendiceal orifice and ileocecal valve. The colonoscopy was performed without difficulty. The patient tolerated the procedure well. The quality of the bowel preparation was fair. The ileocecal valve and the appendiceal orifice were photographed. Scope In: 9:37:03 AM Scope Withdrawal Time 0 hours 9 minutes 55 seconds Scope Out: 9:52:12 AM Total Procedure Duration Time 0 hours 15 minutes 9 seconds Findings: Hemorrhoids were found on perianal exam. A few diverticula were found in the sigmoid colon. The exam was otherwise without abnormality. Impression: - Preparation of the colon was fair. - Hemorrhoids found on perianal exam. - Diverticulosis in the sigmoid colon. - The examination was otherwise normal. - No specimens collected. Recommendation: - Discharge patient to home. - Resume previous diet. - Continue present medications. - Repeat colonoscopy is not recommended due to current age (66 years or older) for screening purposes. Procedure Code(s): --- Professional --- 09248, Colonoscopy, flexible; diagnostic, including collection of specimen(s) by brushing or washing, when performed (separate procedure) Diagnosis Code(s): --- Professional --- Z12.11, Encounter for screening for malignant neoplasm of colon K64.9, Unspecified hemorrhoids K57.30, Diverticulosis of large intestine without perforation or abscess without bleeding CPT copyright 2017 [employer]. All rights reserved. The codes documented in this report are preliminary and upon tc operator review may be revised to meet current compliance requirements. Braulio Cornejo MD 02/14/2022 9:57:16 AM This report has been signed electronically. Number of Addenda: 0 Note Initiated On: 02/14/2022 9:26 AM
--- NOTE | 2022-02-14 09:58 | OP.CCLET_ITS ---
02/14/2022 Renetta Gallagher Re : Colonoscopy procedure for Luigi Diana Dear German This procedure was performed on Monday, February 14, 2022. My impressions and recommendations are as follows: Impressions : - Preparation of the colon was fair. - Hemorrhoids found on perianal exam. - Diverticulosis in the sigmoid colon. - The examination was otherwise normal. - No specimens collected. Recommendations : - Discharge patient to home. - Resume previous diet. - Continue present medications. - Repeat colonoscopy is not recommended due to current age (66 years or older) for screening purposes. My findings are described in the full procedure note, which is enclosed. If I can be of further assistance, please feel free to contact me at Doctor phone number(s): Work: . Sincerely, Braulio Cornejo MD 02/14/2022 9:57:16 AM This report has been signed electronically.
[2022-02-14 10:00] VITALS: BP 123/74; BP 140/79; PULSE 70; RESP 16; O2SAT 98
[2022-02-14 10:05] VITALS: BP 129/77; BP 140/79; PULSE 69; RESP 16; O2SAT 99
[2022-02-14 10:10] VITALS: BP 133/75; BP 140/79; PULSE 65; RESP 16; TEMP 37.2; O2SAT 97
[2022-02-14 10:21] VITALS: BP 140/79
== END 2022-02-14 10:31 | disposition home or self-care (01) ==
LOC: EN 07:52 → AC 07:53
PROVIDERS: PCP Nurse Practitioner Family; Referring Provider Nurse Practitioner Family; Visit Provider Surgery
PROC: 0DJD8ZZ Inspection of Lower Intestinal Tract, Via Natural or Artificial Opening Endoscopic (ICD-10-PCS; CPT 45378; principal; 2022-02-14 08:55)
DX: Z12.11 Encounter for screening for malignant neoplasm of colon (principal); E11.9 Type 2 diabetes mellitus without complications; K57.30 Diverticulosis of large intestine without perforation or abscess without bleeding; K64.9 Unspecified hemorrhoids; I25.10 Atherosclerotic heart disease of native coronary artery without angina pectoris; I10 Essential (primary) hypertension; E78.2 Mixed hyperlipidemia; N42.9 Disorder of prostate, unspecified; Z95.5 Presence of coronary angioplasty implant and graft; Z95.1 Presence of aortocoronary bypass graft; Z79.82 Long term (current) use of aspirin; Z79.84 Long term (current) use of oral hypoglycemic drugs; Z79.899 Other long term (current) drug therapy; Z86.16 Personal history of COVID-19
CPT/HCPCS: G0121; 82962; J7120; J0290; J2405

== ENCOUNTER → 2022-12-15 | Outpatient (CLI) | payer OTHER, SELFPAY ==
[2022-12-15 15:42] LABS: PSA,Total - Annual Screen 4.43 ng/mL (0.00-4.00)
== END | disposition home or self-care (01) ==
PROVIDERS: PCP Nurse Practitioner Family; Visit Provider Nurse Practitioner Family
DX: Z12.5 Encounter for screening for malignant neoplasm of prostate (principal)
CPT/HCPCS: 36415; 84153; G0103

== ENCOUNTER 2022-12-20 21:02 | Emergency (ER) | payer OTHER, SELFPAY ==
[2022-12-20 21:04] VITALS: BP 157/67; PULSE 68; RESP 16; TEMP 35.8; BMI 29.4
[2022-12-20 21:08] VITALS: BP 157/67; PULSE 68; RESP 16; TEMP 35.8
[2022-12-20] MEDS: Gelfoam 12-7 MM Sponge (1) 1 EACH TOPICAL (22:34)
--- NOTE | 2022-12-20 22:43 | EX.ED.DYSGE1 ---
HPI History of Present Illness Chief Complaint: Dental Informant: patient and spouse/S.O. Narrative Narrative: Patient is a 77-year-old male with past medical history of hypertension and diabetes and coronary artery disease currently on aspirin and Plavix. He states 2 weeks ago he had left upper teeth extracted. He reports he was doing well but today he lifted some wooden deck planking and after doing this he noticed bleeding from his tooth extraction site. He states that the bleeding would not stop and with this comes in for evaluation. 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 Cardiology follow-up encounter Diabetes mellitus Dizziness and giddiness Essential hypertension High cholesterol History of echocardiogram History of edema History of stress test Hypertension Hypertension Intermittent claudication Leg cramps Mixed hyperlipidemia Non-smoker Paroxysmal atrial tachycardia Paroxysmal ventricular tachycardia Precordial chest pain Presence of stent in coronary artery (~06/11/20) Prostate disease Shortness of breath Wears glasses Home Medications alfuzosin 10 mg tablet,extended release 24 hr 10 mg PO DAILY 06/10/16 [History Last Taken Unknown] aspirin 81 mg tablet,delayed release 81 mg PO DAILY@0800 06/10/16 [History Last Taken 06/08/20] metformin 1,000 mg tablet 1,000 mg PO BIDCM 06/10/16 [History Last Taken 06/07/20] sitagliptin phosphate 100 mg tablet 100 mg PO DAILY 06/10/16 [History Last Taken Unknown] omeprazole 20 mg capsule,delayed release 20 mg PO DAILY 06/08/20 [History Last Taken Unknown] nitroglycerin 400 mcg/spray translingual (Nitrolingual) 0.4 mg translingual Q5M PRN chest pain #4.9 grams 12/02/21 [Rx Last Taken Unknown] clopidogrel 75 mg tablet 75 mg PO DAILY #90 tabs 01/24/22 [Rx Last Taken 02/14/22] semaglutide 0.25 mg or 0.5 mg (2 mg/1.5 mL) subcutaneous pen injector (Ozempic) 0.5 mg subcut QWEEK 02/12/22 [History Last Taken Unknown] metoprolol succinate 50 mg tablet,extended release 24 hr 50 mg PO DAILY #90 tabs 05/27/22 [Rx Last Taken Unknown] isosorbide mononitrate 120 mg tablet,extended release 24 hr See Rx Instructions .Route .COMPLEX #90 tabs 06/17/22 [Rx Last Taken Unknown] rosuvastatin 20 mg tablet See Rx Instructions .Route .COMPLEX #90 tabs 06/17/22 [Rx Last Taken Unknown] finasteride 5 mg tablet 5 mg PO DAILY 07/14/22 [History Last Taken Unknown] losartan 25 mg tablet 25 mg PO DAILY #90 tabs 11/20/22 [Rx Last Taken Unknown] Allergy/AdvReac Type Severity Reaction Status Date / Time celecoxib [From Celebrex] AdvReac Unknown Verified 12/21/22 04:54 simvastatin AdvReac Unknown Verified 12/21/22 04:54 Family History Father Cancer Mother Cancer Brother CAD (coronary artery disease) Hx CABG Sister Diabetes Surgical History H/O aortic valve replacement (~08/20/16) History of appendectomy History of carpal tunnel surgery History of cholecystectomy History of percutaneous transluminal coronary angioplasty History of shoulder surgery Presence of aortocoronary bypass graft (~02/09/07) Social History Smoking Status: Never smoker alcohol intake: never substance use type: does not use caffeine: Yes Type: coffee what type of physical activity do you participate in: none seatbelt use: always do you feel safe at home: Yes ROS ROS ED Constitutional Constitutional ED: Denies chills or fever(s) ENT ENT ED: Reports other Details: Positive oral bleeding ; Denies sore throat Cardiovascular Cardiovascular: Denies chest pain Respiratory/Chest Respiratory/Chest: Denies cough or dyspnea Gastrointestinal Gastrointestinal: Denies abdominal pain, diarrhea, nausea or vomiting Genitourinary Genitourinary ED: Denies dysuria Musculoskeletal Musculoskeletal: Denies myalgias Integumentary Denies rash Neurologic Neurologic: Denies headache(s) Hematologic/Lymphatic Hematologic/Lymphatic: Reports easy bleeding and easy bruising EXAM Physical Exam Const Vital Signs: 12/20/22 21:04 12/20/22 21:08 Temperature 96.5 F L 96.5 F L Temperature Source Temporal Temporal Pulse Rate 68 68 Respiratory Rate 16 16 Blood Pressure 157/67 H 157/67 H Blood Pressure Mean 97 97 Positive well nourished and well developed General Appearance ED: well developed HEENT HEENT Narrative: Patient has soft tissue changes consistent with tooth extraction in the left upper jaw. There is faint ooze of dark red nonpulsatile blood present. No obvious arterial bleed noted. No airway edema or compromise. No secondary changes to suggest infection. Eyes PERRL and EOMs intact bilaterally Neck supple Resp normal respiratory effort and clear to auscultation bilaterally Cardio regular rate and regular rhythm Extremity normal to inspection Neuro oriented x3 and CN's II-XII intact bilaterally Sensorium / Orientation: alert Psych mental status grossly normal Skin no rashes or lesions noted MDM MDM MDM Narrative Medical decision making narrative: Patient presented to the ER with stable vitals and no airway edema or compromise. Differential diagnosis is for spontaneous postoperative bleeding versus dental infection. Patient had history of lifting prior to the onset of bleeding and therefore this would fit spontaneous bleeding from a Valsalva maneuver leading to increased intrathoracic pressure and rupture of blood vessel. At this time as bleeding is only minimal in nature and do not feel there is need for intervention other than Surgicel placed. Surgicel was placed on the bleeding wound and after doing so a few minutes later there was resolution of his bleeding. As vitals are stable and mental status normal I do not feel there is need for blood work as he does not have findings suggest acute blood loss anemia. As bleeding is now controlled he is otherwise safe for discharge History & Record Review Discussion w/independent historian: Patient and Significant other Discharge Plan Triage Chief Complaint: Dental ED Provider: Hasnel Foster Dx/Rx/DC Orders Clinical Impression: Surgical wound hemorrhage after dental procedure, Diabetes mellitus, Essential hypertension Instructions: Dental Trauma, ED Post Op Wound Check, Bleeding Prescriptions: No Action finasteride 5 mg tablet 5 mg PO DAILY aspirin 81 MG tablet 81 mg PO DAILY@0800 metformin 1,000 MG tablet 1,000 mg PO BIDCM alfuzosin 10 MG tablet extended release 24 hr 10 mg PO DAILY sitagliptin phosphate 100 MG tablet 100 mg PO DAILY omeprazole 20 MG capsule,delayed release(DR/EC) 20 mg PO DAILY Ozempic 0.25 mg or 0.5 mg(2 mg/1.5 mL) pen injector 0.5 mg SUBCUT QWEEK Patient Comments: INJECT 0.25 MGUSUBCUTANEOUSLY ONCE WEEKLY nitroglycerin [Nitrolingual] 400 mcg/spray spray,non-aerosol 0.4 mg Translingual Q5M PRN (Reason: chest pain) Qty: 4.9 3RF Rx Instructions: until response; do not exceed 3 doses per event clopidogrel 75 mg tablet 75 mg PO DAILY Qty: 90 3RF metoprolol succinate 50 mg tablet extended release 24 hr 50 mg PO DAILY Qty: 90 3RF rosuvastatin 20 mg tablet See Rx Instructions .ROUTE .COMPLEX Qty: 90 4RF Dose Instruction: TAKE 1 TABLET BY MOUTH ONCE DAILY Rx Instructions: TAKE 1 TABLET BY MOUTH ONCE DAILY isosorbide mononitrate 120 mg tablet extended release 24 hr See Rx Instructions .ROUTE .COMPLEX Qty: 90 4RF Dose Instruction: TAKE 1 TABLET BY MOUTH EVERY MORNING Rx Instructions: TAKE 1 TABLET BY MOUTH EVERY MORNING losartan 25 mg tablet 25 mg PO DAILY Qty: 90 3RF Primary Care Provider: Margarita Porter Referrals: Margarita Porter, [facility] [employer] [facility] [Primary Care Provider] - Activity Restrictions/Additional Instructions: Please follow-up with your dentist for repeat evaluation. If bleeding persist you may place a piece of the Surg[place]am over top the wound and then bite down on a gauze pad or a tea bag. Try to hold the gauze in place for approximately 2 hours to help with hemostasis. If you have any worsening symptoms or further concerns please return for repeat evaluation Disposition Disposition: Home, Self Care Discharge Date/Time: 12/20/22 22:51
== END 2022-12-20 22:51 | disposition home or self-care (01) ==
PROVIDERS: Emergency Provider Emergency Medicine; PCP Nurse Practitioner Family; Visit Provider Emergency Medicine
DX: K91.840 Postprocedural hemorrhage of a digestive system organ or structure following a digestive system procedure (principal); E11.51 Type 2 diabetes mellitus with diabetic peripheral angiopathy without gangrene; I10 Essential (primary) hypertension; I25.10 Atherosclerotic heart disease of native coronary artery without angina pectoris; Z79.82 Long term (current) use of aspirin; Z79.01 Long term (current) use of anticoagulants; Z95.5 Presence of coronary angioplasty implant and graft
CPT/HCPCS: 99282

== ENCOUNTER 2022-12-21 04:54 | Emergency (ER) | payer OTHER, SELFPAY ==
[2022-12-21 04:55] VITALS: BP 181/75; PULSE 68; RESP 16; TEMP 37.1; O2SAT 97; BMI 29.4
[2022-12-21] MEDS: Silver Nitrate (BKC) 1 EACH TOPICAL (06:41)
[2022-12-21] MEDS: TRANEXAMIC ACID 1,000 MG/10 ML ML OPERA.SITE (06:42)
[2022-12-21] MEDS: Lidocaine 2% /Epi 1:100 (20ml) 20 ML VIAL INFILT (06:43)
--- NOTE | 2022-12-21 08:01 | EX.ED.DYSGE1 ---
HPI <Dr. Hansel Foster, - Last Filed: 12/21/22 23:26> History of Present Illness Chief Complaint: Dental Informant: patient and spouse/S.O. Narrative Narrative: Patient is a 77-year-old male with past medical history of hypertension hyperlipidemia diabetes currently on aspirin and Plavix secondary to coronary artery disease. He was seen last night after postoperative dental bleeding from tooth extraction 2 weeks ago. At that time the bleeding was stopped with pressure and Surgicel the patient states that he was sleeping and he awoke with fluid in his mouth and had bright red blood. He states he tried putting pressure once again but there is no improvement and therefore he comes in for repeat evaluation [facility] <Dr. 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 Cardiology follow-up encounter Diabetes mellitus Dizziness and giddiness Essential hypertension High cholesterol History of echocardiogram History of edema History of stress test Hypertension Hypertension Intermittent claudication Leg cramps Mixed hyperlipidemia Non-smoker Paroxysmal atrial tachycardia Paroxysmal ventricular tachycardia Precordial chest pain Presence of stent in coronary artery (~06/11/20) Prostate disease Shortness of breath Wears glasses Home Medications alfuzosin 10 mg tablet,extended release 24 hr 10 mg PO DAILY 06/10/16 [History Last Taken Unknown] aspirin 81 mg tablet,delayed release 81 mg PO DAILY@0800 06/10/16 [History Last Taken 06/08/20] metformin 1,000 mg tablet 1,000 mg PO BIDCM 06/10/16 [History Last Taken 06/07/20] sitagliptin phosphate 100 mg tablet 100 mg PO DAILY 06/10/16 [History Last Taken Unknown] omeprazole 20 mg capsule,delayed release 20 mg PO DAILY 06/08/20 [History Last Taken Unknown] nitroglycerin 400 mcg/spray translingual (Nitrolingual) 0.4 mg translingual Q5M PRN chest pain #4.9 grams 12/02/21 [Rx Last Taken Unknown] clopidogrel 75 mg tablet 75 mg PO DAILY #90 tabs 01/24/22 [Rx Last Taken 02/14/22] semaglutide 0.25 mg or 0.5 mg (2 mg/1.5 mL) subcutaneous pen injector (Ozempic) 0.5 mg subcut QWEEK 02/12/22 [History Last Taken Unknown] metoprolol succinate 50 mg tablet,extended release 24 hr 50 mg PO DAILY #90 tabs 05/27/22 [Rx Last Taken Unknown] isosorbide mononitrate 120 mg tablet,extended release 24 hr See Rx Instructions .Route .COMPLEX #90 tabs 06/17/22 [Rx Last Taken Unknown] rosuvastatin 20 mg tablet See Rx Instructions .Route .COMPLEX #90 tabs 06/17/22 [Rx Last Taken Unknown] finasteride 5 mg tablet 5 mg PO DAILY 07/14/22 [History Last Taken Unknown] losartan 25 mg tablet 25 mg PO DAILY #90 tabs 11/20/22 [Rx Last Taken Unknown] Allergy/AdvReac Type Severity Reaction Status Date / Time celecoxib [From Celebrex] AdvReac Unknown Verified 12/21/22 04:54 simvastatin AdvReac Unknown Verified 12/21/22 04:54 Family History Father Cancer Mother Cancer Brother CAD (coronary artery disease) Hx CABG Sister Diabetes Surgical History H/O aortic valve replacement (~08/20/16) History of appendectomy History of carpal tunnel surgery History of cholecystectomy History of percutaneous transluminal coronary angioplasty History of shoulder surgery Presence of aortocoronary bypass graft (~02/09/07) Social History Smoking Status: Never smoker alcohol intake: never substance use type: does not use caffeine: Yes Type: coffee what type of physical activity do you participate in: none seatbelt use: always do you feel safe at home: Yes ROS <Dr. Hansel Foster, DO - Last Filed: 12/21/22 23:26> ROS ED Constitutional Constitutional ED: Denies chills or fever(s) ENT ENT ED: Reports other Details: Positive dental bleeding Cardiovascular Cardiovascular: Denies chest pain Respiratory/Chest Respiratory/Chest: Denies cough or dyspnea Gastrointestinal Gastrointestinal: Denies abdominal pain, diarrhea, nausea or vomiting Genitourinary Genitourinary ED: Denies dysuria Musculoskeletal Musculoskeletal: Denies myalgias Integumentary Denies rash Neurologic Neurologic: Denies headache(s) Hematologic/Lymphatic Hematologic/Lymphatic: Reports easy bleeding and easy bruising EXAM <Dr. Hansel Foster, DO - Last Filed: 12/21/22 23:26> Physical Exam Const Vital Signs: 12/21/22 04:55 12/21/22 09:39 12/21/22 11:03 Temperature 98.7 F Temperature Source Temporal Pulse Rate 68 74 100 Respiratory Rate 16 16 Blood Pressure 181/75 H 135/78 H 99/67 Blood Pressure Mean 110 97 77 Pulse Ox 97 95 94 Oxygen Delivery Method Room Air 12/21/22 11:12 12/21/22 11:38 Temperature Temperature Source Pulse Rate 97 99 Respiratory Rate 20 H 18 Blood Pressure 112/59 L Blood Pressure Mean 76 Pulse Ox 97 98 Oxygen Delivery Method Room Air Positive well nourished and well developed General Appearance ED: well developed; Negative for pallor HEENT HEENT Narrative: Patient has postsurgical changes in the left upper jaw consistent with previous tooth extraction. Coming from the center of this area is superficial arterial bleeding. No secondary changes to suggest infection Eyes PERRL and EOMs intact bilaterally General Eye ED: Negative for pale conjunctiva Neck supple Resp normal respiratory effort and clear to auscultation bilaterally Cardio regular rate and regular rhythm Extremity normal to inspection Neuro oriented x3, CN's II-XII intact bilaterally and no sensory deficits noted Sensorium / Orientation: alert Psych mental status grossly normal Skin no rashes or lesions noted General Skin Exam: Negative for pallor <Dr. Rocky Leslie, DO - Last Filed: 12/21/22 16:09> Physical Exam Const Vital Signs: 12/21/22 04:55 12/21/22 09:39 12/21/22 11:03 Temperature 98.7 F Temperature Source Temporal Pulse Rate 68 74 100 Respiratory Rate 16 16 Blood Pressure 181/75 H 135/78 H 99/67 Blood Pressure Mean 110 97 77 Pulse Ox 97 95 94 Oxygen Delivery Method Room Air 12/21/22 11:12 12/21/22 11:38 Temperature Temperature Source Pulse Rate 97 99 Respiratory Rate 20 H 18 Blood Pressure 112/59 L Blood Pressure Mean 76 Pulse Ox 97 98 Oxygen Delivery Method Room Air MDM <Dr. Hansel Foster, DO - Last Filed: 12/21/22 23:26> MDM MDM Narrative Medical decision making narrative: Patient arrived to the ER hypertensive which is consistent with his past medical history but otherwise stable vitals. There is no report or signs of trauma. His previous visit showed mild ooze of blood most consistent with a slow venous bleed but upon evaluation this time around he has a superficial arterial bleed as the blood is bright red and pulsatile. Based on the pulsatile nature of the blood and the fact he failed outpatient treatment with Surgicel I did elect to use lidocaine with epinephrine and injected into the gumline at the site of bleeding to help with vasoconstriction. Following this patient had Vicryl pursestring sutures placed to try and temporize the bleeding vessel. After this he had TXA soaked gauze placed along the gumline with pressure. After the TXA was placed for approximately 20 minutes he did have resolution of his bleeding. Based on the bounce back nature of the patient and the fact that this time around there was arterial bleeding I discussed the case with oral maxillofacial surgery. They state that as bleeding is now controlled there is nothing further to do at this time other than have patient stop his aspirin and Plavix and eat a liquid diet for the next 24-hour. The patient was in the process of being discharged when he had return of bleeding. Oral maxillofacial surgery recommended topical thrombin be used. Therefore this was placed on a gauze pad and then placed over top the area of bleeding. The patient will be watched for the next 20 minutes with the presence of pressure and topical thrombin in order to ensure clotting ensues. Patient will be signed out to the day physician Dr. Leslie while awaiting potential resolution of his bleeding Patient had 6 mL of 2% lidocaine with epinephrine injected locally into the left upper gingiva. Following this six 4-0 Vicryl pursestring sutures were placed around the postoperative bleeding wound. There was slowing/improvement of bleeding but not complete resolution after placement of sutures. Patient tolerated procedure well without complication History & Record Review Discussion w/independent historian: Patient and Significant other Lab Data Labs: Laboratory Results - last 24 hr 12/21/22 12/21/22 09:15 11:00 WBC 8.4 RBC 3.51 L Hgb 11.1 L 9.9 L Hct 32.6 L 28.9 L MCV 92.9 MCH 31.6 MCHC 34.0 RDW Std Deviation 43.8 RDW Coeff of Kemi 12.9 Plt Count 166 MPV 11.4 Immature Gran % (Auto) 0.200 Neut % (Auto) 75.1 H Lymph % (Auto) 16.2 L Rhea % (Auto) 7.5 Eos % (Auto) 0.6 Baso % (Auto) 0.4 Absolute Neuts (auto) 6.3 Absolute Lymphs (auto) 1.36 Nucleated RBC % 0 PT 14.5 INR 1.1 APTT 30.2 Sodium 137 Potassium 3.8 Chloride 103 Carbon Dioxide 28.0 Anion Gap 6 BUN 13 Creatinine 0.87 Estim Creat Clear Calc 75.73 Est GFR (MDRD) Af Amer 109 Est GFR (MDRD) Non-Af 90 BUN/Creatinine Ratio 14.9 Glucose 239 H Calcium 8.8 Blood Type A POSITIVE Antibody Screen NEGATIVE Management Discussion w/another healthcare provider: Project Management Professional <Dr. Rocky Leslie, DO - Last Filed: 12/21/22 16:09> [facility] MDM Narrative Medical decision making narrative: Patient arrived to the ER hypertensive which is consistent with his past medical history but otherwise stable vitals. There is no report or signs of trauma. His previous visit showed mild ooze of blood most consistent with a slow venous bleed but upon evaluation this time around he has a superficial arterial bleed as the blood is bright red and pulsatile. Based on the pulsatile nature of the blood and the fact he failed outpatient treatment with Surgicel I did elect to use lidocaine with epinephrine and injected into the gumline at the site of bleeding to help with vasoconstriction. Following this patient had Vicryl pursestring sutures placed to try and temporize the bleeding vessel. After this he had TXA soaked gauze placed along the gumline with pressure. After the TXA was placed for approximately 20 minutes he did have resolution of his bleeding. Based on the bounce back nature of the patient and the fact that this time around there was arterial bleeding I discussed the case with oral maxillofacial surgery. They state that as bleeding is now controlled there is nothing further to do at this time other than have patient stop his aspirin and Plavix and eat a liquid diet for the next 24-hour. The patient was in the process of being discharged when he had return of bleeding. Oral maxillofacial surgery recommended topical thrombin be used. Therefore this was placed on a gauze pad and then placed over top the area of bleeding. The patient will be watched for the next 20 minutes with the presence of pressure and topical thrombin in order to ensure clotting ensues. Patient will be signed out to the day physician Dr. Leslie while awaiting potential resolution of his bleeding Patient had 6 mL of 2% lidocaine with epinephrine injected locally into the left upper gingiva. Following this six 4-0 Vicryl pursestring sutures were placed around the postoperative bleeding wound. There was slowing/improvement of bleeding but not complete resolution after placement of sutures. Patient tolerated procedure well without complication 0910: Mariama. Patient signed out to me post thrombin placement. Reevaluation recurrent slow bleed, clot in the left upper extracted region with suture strings, there is slow pulsatile bleed bright red cleared with suction, rebleed started. Pressure gauze placed. Will use teabags. Oral maxillary surgeon is out of town as spoke with earlier by primary doctor. Family is concerned with continued bleeding since 7 PM on aspirin and Plavix. I discussed an attempt to re- numb and suture however postop is right in the middle of the gumline. They requesting transferring to a facility with a specialist at this time. Transfer process will be initiated. 0945: Spoke with [place] transfer line, they discussed with their oral maxillary surgeon Dr. Oliveira, they relayed to me for an ER to ER transfer and for Dr. Oliveira to be contacted to the ED. Patient kept NPO. Blood pressure stable. Electrolytes returned normal CBC results are pending. I spoke with ED doctor Dr. Schuyler Burkett at [place] ED, patient be transferred there for evaluation and management. We will continue teabags. Shortly after transfer process initiated, called back from [place] transfer facility, ED Requested I speak directly with the oral maxillary surgeon Dr. Oliveira before acceptance. Repaged out, transfer line called back stating after speaking with Dr. Oliveira again he recommended transfer to tertiary center. Family updated on new information. We will work on another transfers facility. In the interim, was called back blood pressure into the 80s heart rate 100s he was diaphoretic, he was given fluids, recheck H&H. I did order for IV TXA as topical use earlier. 1115: Hemoglobin returned at 9.9 down from 11.1. Heart rate in the 90s blood pressure 101/54. Clinically was improving. Consider platelets however none available for 4 hours. 1140 I was is able to speak with transfer line at [facility] along with discussing with ED physician Dr. SCOTT. From discussion with transfer line they do have oral maxillary surgeon on-call and available however currently working on who is on-call. Initially believed with Dr. Moran, due to patient's history concerning for continued bleeding. Discussed with ED physician who did accept to the facility knowing there is specialist available along with trauma surgery available there. Patient be transferred to [facility] ED for further treatment and management. Lab Data Attestation: I reviewed the patient's lab results. Labs: Laboratory Results - last 24 hr 12/21/22 12/21/22 09:15 11:00 WBC 8.4 RBC 3.51 L Hgb 11.1 L 9.9 L Hct 32.6 L 28.9 L MCV 92.9 MCH 31.6 MCHC 34.0 RDW Std Deviation 43.8 RDW Coeff of Kemi 12.9 Plt Count 166 MPV 11.4 Immature Gran % (Auto) 0.200 Neut % (Auto) 75.1 H Lymph % (Auto) 16.2 L Rhea % (Auto) 7.5 Eos % (Auto) 0.6 Baso % (Auto) 0.4 Absolute Neuts (auto) 6.3 Absolute Lymphs (auto) 1.36 Nucleated RBC % 0 PT 14.5 INR 1.1 APTT 30.2 Sodium 137 Potassium 3.8 Chloride 103 Carbon Dioxide 28.0 Anion Gap 6 BUN 13 Creatinine 0.87 Estim Creat Clear Calc 75.73 Est GFR (MDRD) Af Amer 109 Est GFR (MDRD) Non-Af 90 BUN/Creatinine Ratio 14.9 Glucose 239 H Calcium 8.8 Blood Type A POSITIVE Antibody Screen NEGATIVE <Dr. Rocky Leslie, DO - Last Filed: 12/21/22 16:09> Critical Care Time Critical Care Time: Yes Critical care time (excluding procedures): 30-74 minutes, Discussing w/Patient &/or Family/[place] Floor Manager, Discussing w/Consultants, Arranging Admission or Transfer, Performing Direct Patient Care at Bedside and - (60 minutes) Discharge Plan Triage Chief Complaint: Dental ED Provider: Hansel Foster Dx/Rx/DC Orders Clinical Impression: Surgical wound hemorrhage after dental procedure, Diabetes mellitus, Essential hypertension Instructions: ED Post Op Wound Check, Bleeding Prescriptions: No Action finasteride 5 mg tablet 5 mg PO DAILY aspirin 81 MG tablet 81 mg PO DAILY@0800 metformin 1,000 MG tablet 1,000 mg PO BIDCM alfuzosin 10 MG tablet extended release 24 hr 10 mg PO DAILY sitagliptin phosphate 100 MG tablet 100 mg PO DAILY omeprazole 20 MG capsule,delayed release(DR/EC) 20 mg PO DAILY Ozempic 0.25 mg or 0.5 mg(2 mg/1.5 mL) pen injector 0.5 mg SUBCUT QWEEK Patient Comments: INJECT 0.25 MGUSUBCUTANEOUSLY ONCE WEEKLY nitroglycerin [Nitrolingual] 400 mcg/spray spray,non-aerosol 0.4 mg Translingual Q5M PRN (Reason: chest pain) Qty: 4.9 3RF Rx Instructions: until response; do not exceed 3 doses per event clopidogrel 75 mg tablet 75 mg PO DAILY Qty: 90 3RF metoprolol succinate 50 mg tablet extended release 24 hr 50 mg PO DAILY Qty: 90 3RF rosuvastatin 20 mg tablet See Rx Instructions .ROUTE .COMPLEX Qty: 90 4RF Dose Instruction: TAKE 1 TABLET BY MOUTH ONCE DAILY Rx Instructions: TAKE 1 TABLET BY MOUTH ONCE DAILY isosorbide mononitrate 120 mg tablet extended release 24 hr See Rx Instructions .ROUTE .COMPLEX Qty: 90 4RF Dose Instruction: TAKE 1 TABLET BY MOUTH EVERY MORNING Rx Instructions: TAKE 1 TABLET BY MOUTH EVERY MORNING losartan 25 mg tablet 25 mg PO DAILY Qty: 90 3RF Primary Care Provider: Margarita Porter Referrals: Margarita Porter, DEPUTY SHERIFF/INVESTIGATOR-C [Primary Care Provider] - Activity Restrictions/Additional Instructions: Please stop your aspirin and Plavix to help prevent any spontaneous bleed. Only have a liquid diet today to prevent any trauma to the postsurgical site and therefore prevent recurrent bleeding. Whether the area bleeds further or not you need to follow-up with your dentist tomorrow secondary to the recurrent bleeding that occurred last night/this morning. If the area starts to ooze you may place ice to the cheek to constrict blood vessels and also place the topical thrombin on a gauze pad and place it over top the bleeding area and apply pressure. If you have any further concerns please return to the ER for repeat evaluation Disposition Disposition: DC/Tx to Another Type of HCF Discharge Location: [facility] Discharge Date/Time: 12/21/22 13:13
[2022-12-21] MEDS: Thrombin 5,000 IU Kit (PSA) 5,000 IU Vial 5000 IU TOPICAL (08:15)
--- NOTE | 2022-12-21 08:26 | ED.RN ---
pt. was discharged and brought to the waiting room bathroom while pt. got the car. pt. began to re-bleed in bathroom. Brought back to room 6.
[2022-12-21 09:35] LABS: Absolute Lymphocyte Count 1.36 X10^3/uL (0.83-4.51); Absolute Neutrophil Count 6.3 X10^3/uL (2.0-7.7); Basophil# 0.03 X10^3/uL; Basophil% 0.4 % (0-1); Eosinophil# 0.05 X10^3/uL; Eosinophils% 0.6 % (0-5); Hematocrit 32.6 % (40-54); Hemoglobin 11.1 g/dL (13.0-16.5); Lymphocyte # 1.36 X10^3/ul (0.83-4.51); Lymphocyte % 16.2 % (19-41); Mean Corpuscular Hgb 31.6 pg (27.0-32.0); Mean Corpuscular Volume 92.9 fL (80-94); Mean Platelet Vol. 11.4 fl (6.2-12.0); Monocyte# 0.63 X10^3/uL; Monocyte% 7.5 % (0-10); NRBC Flagged by Analyzer 0 % (0-5); Neutrophil # 6.29 X10^3/uL (2.7-7.7); Neutrophil % 75.1 % (47-70); Platelet Count 166 K/mm3 (150-450); RBC Distribution Width CV 12.9 % (11.6-14.6); RBC Distribution Width SD 43.8 fl (35.1-43.9); Red Blood Count 3.51 M/mm3 (4.6-6.2); White Blood Count 8.4 K/mm3 (4.4-11.0)
[2022-12-21 09:39] VITALS: BP 135/78; PULSE 74; RESP 16; O2SAT 95
[2022-12-21 09:43] LABS: International Normalized Ratio 1.1; Prothrombin Time (Protime)PT. 14.5 SECONDS (11.7-14.9)
[2022-12-21 09:44] LABS: Partial Thromboplast Time 30.2 Seconds (24.1-36.2)
[2022-12-21 09:48] LABS: Anion Gap 6 (5-15); BUN 13 mg/dL (7-18); BUN/Creat Ratio 14.9 RATIO (10-20); Calcium,Total 8.8 mg/dL (8.5-10.1); Chloride 103 mmol/L (98-107); Creatinine, Serum 0.87 mg/dL (0.70-1.30); EST Glomerular Filtration Rate 90 mL/min (>60); Est Glom Filt Rate - Afr Amer 109 mL/min (>60); Estimated Creatinine Clearance 75.73 ml/min; Glucose 239 mg/dL (74-106); Potassium 3.8 mmol/L (3.5-5.1); Sodium Level 137 mmol/L (136-145)
--- NOTE | 2022-12-21 09:56 | NURSING ---
CALLED PHYSICIANS TO TRANSPORT PT TO [facility]-- ETA GIVEN 30 MIN-- [id number]
[2022-12-21 11:03] VITALS: BP 99/67; PULSE 100; O2SAT 94
[2022-12-21] MEDS: TRANEXAMIC ACID 1,000 MG in 0.9% Normal Saline (100mL Bag) 100 ML 440 MG IV (11:11)
[2022-12-21 11:12] VITALS: PULSE 97; RESP 20; O2SAT 97
[2022-12-21 11:20] LABS: Hematocrit 28.9 % (40-54); Hemoglobin 9.9 g/dL (13.0-16.5)
[2022-12-21 11:38] VITALS: BP 112/59; PULSE 99; RESP 18; O2SAT 98
--- NOTE | 2022-12-21 12:19 | ED.RN ---
Report called to [facility] ER charge nurse
== END 2022-12-21 13:13 | disposition other institution (70) ==
PROVIDERS: Emergency Medicine; Emergency Provider Emergency Medicine; PCP Nurse Practitioner Family; Visit Provider Emergency Medicine
DX: K91.840 Postprocedural hemorrhage of a digestive system organ or structure following a digestive system procedure (principal); E11.51 Type 2 diabetes mellitus with diabetic peripheral angiopathy without gangrene; I25.10 Atherosclerotic heart disease of native coronary artery without angina pectoris; I10 Essential (primary) hypertension; Z79.82 Long term (current) use of aspirin; Z79.01 Long term (current) use of anticoagulants; Z95.5 Presence of coronary angioplasty implant and graft
CPT/HCPCS: 80048; 85014; 85018; 85025; 85610; 85730; 86850; 86900; 86901; 96365; 99284; J7030; A4216

== ENCOUNTER 2022-12-23 12:51 | Inpatient (IN) | payer OTHER, MEDICARE, SELFPAY ==
[2022-12-23] VITALS (13 sets, daily range): BP systolic 117–139; BP diastolic 54–65; PULSE 61–81; RESP 16–25; TEMP 36.2–36.8; O2SAT 98–100; BMI 29.5; BMI 29.1
--- NOTE | 2022-12-23 14:50 | EX.ED.DYSGE1 ---
HPI History of Present Illness Chief Complaint: Abn Labs Narrative Narrative: 77-year-old male past medical history of hypertension, hyperlipidemia, was seen in the emergency department a few days ago because he had post tooth extraction bleeding from his mouth. At that time he was on Plavix and aspirin. He relates history that about a week or 2 prior to his visit to the emergency department, he had teeth extracted. He awoke with blood all over his mouth. He presented to the emergency department twice, and had to be transferred up to [facility] or maxillofacial surgeon was present. He states that the bleeding had been controlled and he only bled a little in transfer to the level 1 trauma center. They kept him overnight, then discharged him yesterday. Since then, he states he has felt lightheaded, and generally weak. He denies any chest pain or other symptoms. He saw his primary care provider today who told him he looked pallor and, had him have laboratory work performed, and he was called stating that his hemoglobin was low at 6.3 today. He states he has had transfusion of blood in the past when he had a graft placed in his aorta and aortic valve replacement. 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 Cardiology follow-up encounter Diabetes mellitus Dizziness and giddiness Essential hypertension High cholesterol History of echocardiogram History of edema History of stress test Hypertension Hypertension Intermittent claudication Leg cramps Mixed hyperlipidemia Non-smoker Paroxysmal atrial tachycardia Paroxysmal ventricular tachycardia Precordial chest pain Presence of stent in coronary artery (~06/11/20) Prostate disease Shortness of breath Wears glasses Home Medications alfuzosin 10 mg tablet,extended release 24 hr 10 mg PO DAILY 06/10/16 [History Last Taken Unknown] aspirin 81 mg tablet,delayed release 81 mg PO DAILY@0800 06/10/16 [History Last Taken 06/08/20] metformin 1,000 mg tablet 1,000 mg PO BIDCM 06/10/16 [History Last Taken 06/07/20] sitagliptin phosphate 100 mg tablet 100 mg PO DAILY 06/10/16 [History Last Taken Unknown] omeprazole 20 mg capsule,delayed release 20 mg PO DAILY 06/08/20 [History Last Taken Unknown] nitroglycerin 400 mcg/spray translingual (Nitrolingual) 0.4 mg translingual Q5M PRN chest pain #4.9 grams 12/02/21 [Rx Last Taken Unknown] clopidogrel 75 mg tablet 75 mg PO DAILY #90 tabs 01/24/22 [Rx Last Taken 02/14/22] semaglutide 0.25 mg or 0.5 mg (2 mg/1.5 mL) subcutaneous pen injector (Ozempic) 0.5 mg subcut QWEEK 02/12/22 [History Last Taken Unknown] metoprolol succinate 50 mg tablet,extended release 24 hr 50 mg PO DAILY #90 tabs 05/27/22 [Rx Last Taken Unknown] isosorbide mononitrate 120 mg tablet,extended release 24 hr See Rx Instructions .Route .COMPLEX #90 tabs 06/17/22 [Rx Last Taken Unknown] rosuvastatin 20 mg tablet See Rx Instructions .Route .COMPLEX #90 tabs 06/17/22 [Rx Last Taken Unknown] finasteride 5 mg tablet 5 mg PO DAILY 07/14/22 [History Last Taken Unknown] losartan 25 mg tablet 25 mg PO DAILY #90 tabs 11/20/22 [Rx Last Taken Unknown] Allergy/AdvReac Type Severity Reaction Status Date / Time celecoxib [From Celebrex] AdvReac Unknown Verified 12/23/22 12:52 simvastatin AdvReac Unknown Verified 12/23/22 12:52 Family History Father Cancer Mother Cancer Brother CAD (coronary artery disease) Hx CABG Sister Diabetes Surgical History H/O aortic valve replacement (~08/20/16) History of appendectomy History of carpal tunnel surgery History of cholecystectomy History of percutaneous transluminal coronary angioplasty History of shoulder surgery Presence of aortocoronary bypass graft (~02/09/07) Social History Smoking Status: Never smoker alcohol intake: never substance use type: does not use caffeine: Yes Type: coffee what type of physical activity do you participate in: none seatbelt use: always do you feel safe at home: Yes ROS ROS ED ROS Narrative Constitutional: No fever, no chills. Generalized weakness. HEENT: No sore throat. No neck pain. No loss of vision. No rhinorrhea. Cardiovascular: No chest pain. No palpitations. No pedal edema. Respiratory: No cough, no shortness of breath. Abdominal: No abdominal pain. No nausea. No vomiting. Genitourinary: No dysuria. No hematuria. Musculoskeletal: No myalgias. No arthralgias. Neurologic: No headaches. No dizziness. Positive lightheadedness. Skin: No rash. Positive pallor. Psychiatric: No depression. No anxiety. EXAM Physical Exam Narrative Exam Narrative: Afebrile. Vital signs noted. HEENT: Normocephalic. Atraumatic. PERRL, EOMI. Neck soft and supple. No point tenderness or step off. Cardiovascular: Regular rate and rhythm. No murmurs, rubs, or gallops appreciated. Respiratory: No tachypnea. Lungs clear to auscultation bilaterally. Gastrointestinal: Abdomen soft, nontender, with normoactive bowel sounds. No rebound or guarding. Neurological: Awake. Alert. Nonfocal, nonlateralizing. Skin: No rash. Normal color. Positive pallor of palms and subconjunctivae of eyes. Musculoskeletal: No pedal edema. Full range of motion extremities. Const Vital Signs: 12/23/22 12:52 12/23/22 14:45 12/23/22 16:00 Temperature 97.1 F L Temperature Source Temporal Pulse Rate 81 72 Respiratory Rate 18 20 H Respiratory Effort Normal Non-Labored Blood Pressure 135/61 H Blood Pressure Mean 85 Blood Pressure Source Blood Pressure Position Blood Pressure Location Pulse Ox 100 99 Oxygen Delivery Method Room Air Room Air 12/23/22 16:28 12/23/22 18:05 12/23/22 18:07 Temperature 97.8 F 97.8 F Temperature Source Oral Oral Pulse Rate 74 75 75 Respiratory Rate 20 H 25 H 18 Respiratory Effort Blood Pressure 122/54 H 117/63 117/63 Blood Pressure Mean 76 81 81 Blood Pressure Source Monitor Blood Pressure Position Sitting Blood Pressure Location Right Arm Pulse Ox 100 100 98 Oxygen Delivery Method Room Air Room Air Room Air 12/23/22 18:08 Temperature Temperature Source Pulse Rate Respiratory Rate 20 H Respiratory Effort Blood Pressure Blood Pressure Mean Blood Pressure Source Blood Pressure Position Blood Pressure Location Pulse Ox Oxygen Delivery Method MDM MDM MDM Narrative Medical decision making narrative: The concern is for hemorrhagic blood loss from his dental extractions. He states he is currently not taking Plavix or aspirin or blood thinner. While he states that his stool has been black in color, over the last few days he has probably swallowed a large amount of blood, and I have low concern for upper GI hemorrhage. I reviewed his prior records and saw that his hemoglobin 2 days ago was 9.9. This is significant blood loss. I will draw confirmatory CBC, and check Actilite panel along with a type and screen. In review of his CBC, his hemoglobin is lower at 6.0, he will be typed and crossmatched for 2 units of packed red blood cells, and consent obtained. At this point in time, although his CMP is pending, I do feel that he will require at least observation for his anemia requiring transfusion. Patient will be discussed with the hospitalist, Dr. Melissa Simms, patient is in stable condition. I was able to review his CMP and he has an elevated glucose of 217 but a normal/low anion gap of 3. I do not have concern for diabetic ketoacidosis. While BUN is elevated at 21, creatinine 0.97. This could be digested blood from him swallowing large amounts, dropping his hemoglobin to 6.0 today. In discussion with the patient and his , he is holding his Plavix and aspirin and was supposed to hold it until at least tomorrow. Disposition is admit in stable condition. History & Record Review Discussion w/independent historian: Patient and Family Additional record(s) reviewed:: Prior ED visit and Prior labs Lab Data Attestation: I reviewed the patient's lab results. Labs: Laboratory Results - last 24 hr 12/23/22 14:49 WBC 7.4 RBC 1.90 L Hgb 6.0 L* Hct 17.9 L MCV 94.2 H MCH 31.6 MCHC 33.5 D RDW Std Deviation 45.2 H RDW Coeff of Kemi 13.4 Plt Count 137 L MPV 11.6 Immature Gran % (Auto) 0.400 Neut % (Auto) 56.8 Lymph % (Auto) 29.1 [place] % (Auto) 11.8 H Eos % (Auto) 1.5 Baso % (Auto) 0.4 Absolute Neuts (auto) 4.2 Absolute Lymphs (auto) 2.15 Nucleated RBC % 0 Diff Path Review May foll Platelet Estimate SLT DEC RBC Morphology N CHROM Polychromasia RARE Anisocytosis 1+ Macrocytosis 1+ Sodium 140 Potassium 3.9 Chloride 109 H Carbon Dioxide 28.0 Anion Gap 3 L BUN 21 H Creatinine 0.97 Est GFR (MDRD) Af Amer 96 Est GFR (MDRD) Non-Af 79 BUN/Creatinine Ratio 21.6 H Glucose 217 H Calcium 8.1 L Total Bilirubin 0.40 AST 16 ALT 20 Alkaline Phosphatase 26 L Total Protein 5.9 L Albumin 3.3 Globulin 2.6 Albumin/Globulin Ratio 1.3 Blood Type A POSITIVE Antibody Screen NEGATIVE Crossmatch See Detail Management Discussion w/another healthcare provider: Hospitalist (Dr. Melissa Simms) Discharge Plan Dx/Rx/DC Orders Clinical Impression: Anemia requiring transfusions, Lightheadedness, Surgical wound hemorrhage after dental procedure Disposition Disposition: Acute Care [facility]
[2022-12-23 15:05] LABS: Absolute Lymphocyte Count 2.15 X10^3/uL (0.83-4.51); Absolute Neutrophil Count 4.2 X10^3/uL (2.0-7.7); Basophil# 0.03 X10^3/uL; Basophil% 0.4 % (0-1); Eosinophil# 0.11 X10^3/uL; Eosinophils% 1.5 % (0-5); Hematocrit 17.9 % (40-54); Lymphocyte # 2.15 X10^3/ul (0.83-4.51); Lymphocyte % 29.1 % (19-41); Mean Corp Hgb Conc 33.5 g/dL (32-36); Mean Corpuscular Hgb 31.6 pg (27.0-32.0); Mean Corpuscular Volume 94.2 fL (80-94); Mean Platelet Vol. 11.6 fl (6.2-12.0); Monocyte# 0.87 X10^3/uL; Monocyte% 11.8 % (0-10); NRBC Flagged by Analyzer 0 % (0-5); Neutrophil % 56.8 % (47-70); Platelet Count 137 K/mm3 (150-450); RBC Distribution Width CV 13.4 % (11.6-14.6); RBC Distribution Width SD 45.2 fl (35.1-43.9); White Blood Count 7.4 K/mm3 (4.4-11.0)
[2022-12-23 15:16] LABS: Differential Indicated SCAN CRITERIA MET
[2022-12-23 15:29] LABS: ALB/GLOB Ratio 1.3 RATIO (0.9-2.4); AST(SGOT) 16 U/L (15-37); Alanine Aminotransfer ALT/SGPT 20 U/L (16-61); Albumin, Serum 3.3 g/dL (3.2-5.0); Alkaline Phosphatase 26 U/L (45-117); Anion Gap 3 (5-15); BUN 21 mg/dL (7-18); BUN/Creat Ratio 21.6 RATIO (10-20); Calcium,Total 8.1 mg/dL (8.5-10.1); Chloride 109 mmol/L (98-107); Creatinine, Serum 0.97 mg/dL (0.70-1.30); EST Glomerular Filtration Rate 79 mL/min (>60); Est Glom Filt Rate - Afr Amer 96 mL/min (>60); Globulin 2.6 g/dL (2.2-4.2); Glucose 217 mg/dL (74-106); Potassium 3.9 mmol/L (3.5-5.1); Protein, Total 5.9 g/dL (6.4-8.2); Sodium Level 140 mmol/L (136-145)
[2022-12-23 15:37] LABS: Anisocytosis 1+; Macrocytosis 1+; Platelet Estimate SLT DEC (ADEQ); Polychromasia RARE; Red Cell Morphology N CHROM NORMAL (NORM C&C)
--- NOTE | 2022-12-23 17:54 | HP.PCM.HOS_ITS ---
HPI - General General Date of Admission: 12/23/22 Date of Service: 12/23/22 Chief Complaint: Acute blood loss anemia following dental extraction, on asa, plavix. HPI Narrative The patient is a 77 y/o M w/ PMHx: Obesity, HTN, HLD, CAD s/p CABG x 4 and PCI, Valvular heart disease s/p TAVR w/ 26 mm Jackson Orestes S3 valve (2017 at [facility]), Diabetes mellitus type II who presents to the [facility] ED on 12/23/22 with history of recent initial 12/20/2022 ED visit with history of weeks prior left upper tooth extraction secondary to tooth being broken and had reportedly been doing well with hold on his antiplatelet therapy although he had of note the procedure only 2 days following hold on his dual antiplatelet therapy when he had been lifting some wooden deck planking and noticed onset of bleeding from the tooth extraction site which continued and was extremely profuse eventually stopping with discharge however patient turned again 12/21/2022 with recurrent bleeding despite pressure and Surgicel placed previously eventually requiring transfer to tertiary facility for maxillofacial assessment with discharge 12/22/2022 with last hemoglobin prior to discharge 7.3 with no PRBC transfusion during his admission with since discharge lightheadedness, dizziness, dyspnea worse with exertion and increased fatigue and malaise prompting eventual ED reevaluation. Patient was seen previous to ED evaluation by his primary care physician and did have hemoglobin assessment which was noted to be 6.3 with referral to the ED for PRBC administration. Patient denies any recurrent bleeding over the last 48 hours of note. Work-up in the ED included T98.2, heart rate 61, BP 121/56, respiratory rate 18, 99% on room air, CBC with WBC 7.4, hemoglobin 6.0, MCV 94.2, platelet 137 without marked shift, CMP with chloride 109, BUN/creatinine 21/0.97, glucose 217, hepatic profile not marked appearing, type and cross initiated per ED physician for 2 unit to be administered. 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 Cardiology follow-up encounter Diabetes mellitus Dizziness and giddiness Essential hypertension High cholesterol History of echocardiogram History of edema History of stress test Hypertension Hypertension Intermittent claudication Leg cramps Mixed hyperlipidemia Non-smoker Paroxysmal atrial tachycardia Paroxysmal ventricular tachycardia Precordial chest pain Presence of stent in coronary artery (~06/11/20) Prostate disease Shortness of breath Wears glasses Home Medications alfuzosin 10 mg tablet,extended release 24 hr 10 mg PO DAILY 06/10/16 [History Last Taken Unknown] aspirin 81 mg tablet,delayed release 81 mg PO DAILY@0800 06/10/16 [History Last Taken 06/08/20] metformin 1,000 mg tablet 1,000 mg PO BIDCM 06/10/16 [History Last Taken 06/07/20] sitagliptin phosphate 100 mg tablet 100 mg PO DAILY 06/10/16 [History Last Taken Unknown] omeprazole 20 mg capsule,delayed release 20 mg PO DAILY 06/08/20 [History Last Taken Unknown] nitroglycerin 400 mcg/spray translingual (Nitrolingual) 0.4 mg translingual Q5M PRN chest pain #4.9 grams 12/02/21 [Rx Last Taken Unknown] clopidogrel 75 mg tablet 75 mg PO DAILY #90 tabs 01/24/22 [Rx Last Taken 02/14/22] semaglutide 0.25 mg or 0.5 mg (2 mg/1.5 mL) subcutaneous pen injector (Ozempic) 0.5 mg subcut QWEEK 02/12/22 [History Last Taken Unknown] metoprolol succinate 50 mg tablet,extended release 24 hr 50 mg PO DAILY #90 tabs 05/27/22 [Rx Last Taken Unknown] isosorbide mononitrate 120 mg tablet,extended release 24 hr See Rx Instructions .Route .COMPLEX #90 tabs 06/17/22 [Rx Last Taken Unknown] rosuvastatin 20 mg tablet See Rx Instructions .Route .COMPLEX #90 tabs 06/17/22 [Rx Last Taken Unknown] finasteride 5 mg tablet 5 mg PO DAILY 07/14/22 [History Last Taken Unknown] losartan 25 mg tablet 25 mg PO DAILY #90 tabs 11/20/22 [Rx Last Taken Unknown] Allergy/AdvReac Type Severity Reaction Status Date / Time celecoxib [From Celebrex] AdvReac Unknown Verified 12/23/22 12:52 simvastatin AdvReac Unknown Verified 12/23/22 12:52 Family History Father Cancer Mother Cancer Brother CAD (coronary artery disease) Hx CABG Sister Diabetes Surgical History H/O aortic valve replacement (~08/20/16) History of appendectomy History of carpal tunnel surgery History of cholecystectomy History of percutaneous transluminal coronary angioplasty History of shoulder surgery Presence of aortocoronary bypass graft (~02/09/07) Social History Smoking Status: Never smoker alcohol intake: never substance use type: does not use caffeine: Yes Type: coffee what type of physical activity do you participate in: none seatbelt use: always do you feel safe at home: Yes ROS ROS Narrative Admission Review of Systems: CONSTITUTIONAL: No weight loss, fever, chills, + weakness or fatigue. HEENT: + lightheadedness, dizziness, recent left upper back dental procedure secondary to tooth being cracked with previous copious bleeding from the site, currently resolved. Eyes: No visual loss, blurred vision, double vision or yellow sclerae. Ears, Nose, Throat: No hearing loss, sneezing, congestion, runny nose or sore throat. SKIN: No rash or itching, lesions, wounds. CARDIOVASCULAR: + Lightheadedness, dizziness. No chest pain, chest pressure or chest discomfort, palpitations, edema, orthopnea, syncopal events. RESPIRATORY: + shortness of breath, worse with exertion. Cough or sputum, wheezing, hemoptysis. GASTROINTESTINAL: No anorexia, nausea, vomiting or diarrhea, abdominal pain, melena, BRBPR. GENITOURINARY: No dysuria, frequency, urgency or retention. NEUROLOGICAL: + Lightheadedness, dizziness. No headache, paralysis, ataxia, numbness or tingling in the extremities, focal weakness, change in bowel or bladder control, seizure. MUSCULOSKELETAL: + muscle, back pain, joint pain or stiffness. HEMATOLOGIC: + anemia, recent bleeding, easy bruising. LYMPHATICS: No enlarged nodes. No history of splenectomy. PSYCHIATRIC: No history of depression or anxiety. ENDOCRINOLOGIC: No reports of sweating, cold or heat intolerance. No polyuria or polydipsia. ALLERGIES: No history of asthma, hives, eczema or rhinitis. Vital Signs Vital Signs Vital Signs: 12/23/22 12:52 12/23/22 14:45 12/23/22 16:00 Temperature 97.1 F L Temperature Source Temporal Pulse Rate 81 72 Respiratory Rate 18 20 H Respiratory Effort Normal Non-Labored Blood Pressure 135/61 H Blood Pressure Mean 85 Pulse Ox 100 99 Oxygen Delivery Method Room Air Room Air 12/23/22 16:28 Temperature Temperature Source Pulse Rate 74 Respiratory Rate 20 H Respiratory Effort Blood Pressure 122/54 H Blood Pressure Mean 76 Pulse Ox 100 Oxygen Delivery Method Room Air Physical Exam Narrative Physical Examination: General: Awake, alert, oriented x 3 and cooperative, seated upright in the ED bed in no apparent distress, fatigued appearing. Skin: Normal color, normal turgor, no icterus, no cyanosis except for occasional staged ecchymoses. HEENT: AT/NC, EOMI, PERRLA, MMM, site of left upper back dental extraction with no current bleeding, no marked gum erythema or edema noted either, no carotid bruits or JVD noted. Lungs: Mild diminished, bases, appropriate effort, no rales, ronchi or wheezing. Heart: Currently mildly bradycardic; no gallop, rub audible, + SM. Abdomen: Soft, obese, NTTP, ND, normal BS, no HSM. Extremities: No cyanosis, clubbing, or edema. Neurological: Patient awake, alert, oriented as noted, cognitive function intact; pupils equally reactive to light and accommodation, cranial nerves II- XII grossly normal, moving all 4 extremities, no focal deficits, strength moderately globally decreased secondary to acute presentation complaints. Psychiatric: Affect appears fatigued otherwise normal, no acute evidence of depressive or anxiety feelings. Results Lab / Micro Data 12/23/22 14:49 12/23/22 14:49 Labs: Laboratory Results - last 24 hr 12/23/22 14:49: WBC 7.4, RBC 1.90 L, Hgb 6.0 L*, Hct 17.9 L, MCV 94.2 H, MCH 31.6, MCHC 33.5 D, RDW Std Deviation 45.2 H, RDW Coeff of Kemi 13.4, Plt Count 137 L, MPV 11.6, Immature Gran % (Auto) 0.400, Neut % (Auto) 56.8, Lymph % (Auto) 29.1, [place] % (Auto) 11.8 H, Eos % (Auto) 1.5, Baso % (Auto) 0.4, Absolute Neuts (auto) 4.2, Absolute Lymphs (auto) 2.15, Nucleated RBC % 0, Diff Path Review August, Platelet Estimate SLT DEC, RBC Morphology N CHROM, Polychromasia RARE, Anisocytosis 1+, Macrocytosis 1+, Sodium 140, Potassium 3.9, Chloride 109 H, Carbon Dioxide 28.0, Anion Gap 3 L, BUN 21 H, Creatinine 0.97, Est GFR (MDRD) Af Amer 96, Est GFR (MDRD) Non-Af 79, BUN/Creatinine Ratio 21.6 H , Glucose 217 H, Calcium 8.1 L, Total Bilirubin 0.40, AST 16, ALT 20, Alkaline Phosphatase 26 L, Total Protein 5.9 L, Albumin 3.3, Globulin 2.6, Albumin/Globulin Ratio 1.3, Blood Type A POSITIVE, Antibody Screen NEGATIVE, Crossmatch See Detail Assessment & Plan Assessment/Plan (1) Anemia requiring transfusions: PLAN: Plan The patient is a 77 y/o M w/ PMHx: Obesity, HTN, HLD, CAD s/p CABG x 4 and PCI, Valvular heart disease s/p TAVR w/ 26 mm Jackson Orestes S3 valve (2017 at [facility]), Diabetes mellitus type II who presents to the [facility] ED on 12/23/22 with history of recent initial 12/20/2022 ED visit with history of weeks prior left upper tooth extraction secondary to tooth being broken and had reportedly been doing well with hold on his antiplatelet therapy although he had of note the procedure only 2 days following hold on his dual antiplatelet therapy when he had been lifting some wooden deck planking and noticed onset of bleeding from the tooth extraction site which continued and was extremely profuse eventually stopping with discharge however patient turned again 12/21/2022 with recurrent bleeding despite pressure and Surgicel placed previously eventually requiring transfer to tertiary facility for maxillofacial assessment with discharge 12/22/2022 with last hemoglobin prior to discharge 7.3 with no PRBC transfusion during his admission with since discharge lightheadedness, dizziness, dyspnea worse with exertion and increased fatigue and malaise prompting eventual ED reevaluation. #1. Lightheadedness, dizziness, dyspnea secondary to acute blood loss anemia following recent dental extraction 2 days off of dual antiplatelet therapy: Patient with recent ED visit secondary to significant bleeding following dental procedure as patient had cracked a tooth while eating and did have the extraction only 2 days after holding Plavix and aspirin dual therapy unfortunately significant bleeding following requiring eventual transfer to tertiary facility with discharge on 12/22/2022 with last hemoglobin noted at their facility 7.3 however he continued to feel fatigued with worsened lightheadedness and dizziness as well as dyspnea prompting return with noted repeat hemoglobin upon presentation 6.3 outpatient and repeat upon ED arrival 6.0. Will admit to medical surgical telemetry floor, maintain on fall precautions, continue 2 unit PRBC blood administration initiated per ED, will repeat H&H following completion and repeat CBC in a.m., at this point no obvious evidence of bleeding but will continue to hold dual antiplatelet therapy and will encourage again repeat outpatient maxillofacial reassessment and CBC trending with resumption of antiplatelet therapy once cleared by maxillofacial. #2. CAD: s/p CABG (CABG X 4, [place] to LAD, SVG sequentially to high lateral & lateral Cx & SVG independently to RCA using endovein harvest system) and PCI (PCI/ELISA to distal LM/ostial LCX with rotational atherectomy 06/11/20 [facility] 2006, PCI ostium first marginal of Cx and Bare metal stent to aorto-ostio SVG to Cx 04/14/07), continue to hold dual antiplatelet therapy aspirin and Plavix, we will cautiously continue metoprolol and losartan although low threshold to hold given normal BP range in the setting of acute blood loss anemia as noted. #3. Valvular Heart Disease: s/p TAVR w/ 26 mm Jackson Orestes S3 valve 2017 at [facility], as noted temporarily holding antiplt therapy given recent acute blood loss anemia, OSH Maxillofacial per his report had given the clearance for restart antiplt therapies 12/24/22, recommend Hgb be stable prior. #4. Hypertension: Continue home regimen including isosorbide, losartan, metoprolol to start tomorrow as long as blood pressure appropriate given low normal BP in the setting of acute blood loss anemia, PRN hydralazine. #5. Hyperlipidemia: We will continue patient on statin therapy. #6. Diabetes mellitus type II: Hold oral home regimen, ADA diet, accu checks w/ ISS. #7. GERD: We will continue patient home PPI. #8. BPH: We will continue patient home finasteride and alfuzosin regimen. #9. DVT prophylaxis: SCDs. #10. CODE status: Patient HCPMATILDE is his and living will is currently in place. Discussed CODE status at length including difference between FULL code, DNR-CCA and DNR-CC status. Following discussions about the differences in these status, requested Full Code status. Advanced Care Planning Face to Face Time: 16 minutes. Charges/Coding Visit Charges Inpatient E&M: 06103 Init Hosp L3 Procedures Hospitalists Procedures: 87899 Advncd Care Plan 30 Min
--- NOTE | 2022-12-23 20:31 | NURSING ---
pt unsure of med list, but states it was verified with in the ER.
[2022-12-23 21:46] LABS: Bedside Glucose 182 mg/dL (74-106)
[2022-12-23] MEDS: Rosuvastatin 20 MG Tablet PO (22:07)
[2022-12-24 00:25] VITALS: BP 154/62; PULSE 76; RESP 18; TEMP 36.6; O2SAT 95
[2022-12-24 01:28] VITALS: BP 138/60; PULSE 70; RESP 16; TEMP 36.6; O2SAT 99
[2022-12-24] MEDS: 0.9% Saline Lock 10 ML Syringe IV (01:35)
[2022-12-24 02:37] LABS: Hematocrit 22.4 % (40-54); Hemoglobin 7.2 g/dL (13.0-16.5)
[2022-12-24 06:00] VITALS: BMI 29.9
[2022-12-24 06:09] LABS: Absolute Neutrophil Count 2.9 X10^3/uL (2.0-7.7); Basophil# 0.03 X10^3/uL; Basophil% 0.7 % (0-1); Eosinophil# 0.09 X10^3/uL; Hematocrit 22.4 % (40-54); Hemoglobin 7.4 g/dL (13.0-16.5); Lymphocyte % 24.2 % (19-41); Mean Corpuscular Hgb 30.2 pg (27.0-32.0); Mean Corpuscular Volume 91.4 fL (80-94); Monocyte# 0.46 X10^3/uL; Monocyte% 10.1 % (0-10); NRBC Flagged by Analyzer 0 % (0-5); Neutrophil # 2.85 X10^3/uL (2.7-7.7); Neutrophil % 62.6 % (47-70); Platelet Count 111 K/mm3 (150-450); RBC Distribution Width CV 14.2 % (11.6-14.6); RBC Distribution Width SD 46.3 fl (35.1-43.9); Red Blood Count 2.45 M/mm3 (4.6-6.2); White Blood Count 4.6 K/mm3 (4.4-11.0)
[2022-12-24 06:48] VITALS: BP 121/53; PULSE 73; RESP 18; TEMP 37.2; O2SAT 97
[2022-12-24 06:53] LABS: ALB/GLOB Ratio 1.2 RATIO (0.9-2.4); AST(SGOT) 18 U/L (15-37); Alanine Aminotransfer ALT/SGPT 19 U/L (16-61); Alkaline Phosphatase 26 U/L (45-117); Anion Gap 6 (5-15); BUN 13 mg/dL (7-18); BUN/Creat Ratio 15.9 RATIO (10-20); Chloride 109 mmol/L (98-107); Creatinine, Serum 0.82 mg/dL (0.70-1.30); EST Glomerular Filtration Rate 97 mL/min (>60); Est Glom Filt Rate - Afr Amer 118 mL/min (>60); Estimated Creatinine Clearance 80.35 ml/min; Globulin 2.6 g/dL (2.2-4.2); Glucose 222 mg/dL (74-106); Potassium 3.4 mmol/L (3.5-5.1); Protein, Total 5.6 g/dL (6.4-8.2); Sodium Level 140 mmol/L (136-145)
--- NOTE | 2022-12-24 07:22 | PN.HOSP_ITS ---
Reason for Visit Reason for Visit: Diagnoses Anemia, unspecified (12/23/22) Subjective Subjective Patient is a 77-year-old gentleman admitted with symptomatic anemia hemoglobin on admission was 6.0. Objective Data Objective Data Vital Signs: Vital Signs Temp Pulse Resp BP Pulse Ox O2 Del Method 99 F 73 18 121/53 H 97 Room Air 12/24/22 06:48 12/24/22 06:48 12/24/22 06:48 12/24/22 06:48 12/24/22 06:48 12/24/22 06:48 Oxygen Delivery Method Room Air Weight: 94.7 kg Body Mass Index (BMI) 29.1 Intake & Output: Intake and Output for Last 24 Hours 12/22/22 12/23/22 12/24/22 23:59 23:59 23:59 Intake Total 700 / 700 400 / 400 Output Total 200 / 200 Balance 700 / 700 200 / 200 Lab / Micro Data 12/24/22 05:53 12/24/22 05:53 Labs: Laboratory Results - last 24 hr 12/23/22 14:49: WBC 7.4, RBC 1.90 L, Hgb 6.0 L*, Hct 17.9 L, MCV 94.2 H, MCH 31.6, MCHC 33.5 D, RDW Std Deviation 45.2 H, RDW Coeff of Kemi 13.4, Plt Count 137 L, MPV 11.6, Immature Gran % (Auto) 0.400, Neut % (Auto) 56.8, Lymph % (Auto) 29.1, [place] % (Auto) 11.8 H, Eos % (Auto) 1.5, Baso % (Auto) 0.4, Absolute Neuts (auto) 4.2, Absolute Lymphs (auto) 2.15, Nucleated RBC % 0, Diff Path Review August, Platelet Estimate SLT DEC, RBC Morphology N CHROM, Polychromasia RARE, Anisocytosis 1+, Macrocytosis 1+, Sodium 140, Potassium 3.9, Chloride 109 H, Carbon Dioxide 28.0, Anion Gap 3 L, BUN 21 H, Creatinine 0.97, Est GFR (MDRD) Af Amer 96, Est GFR (MDRD) Non-Af 79, BUN/Creatinine Ratio 21.6 H , Glucose 217 H, Calcium 8.1 L, Total Bilirubin 0.40, AST 16, ALT 20, Alkaline Phosphatase 26 L, Total Protein 5.9 L, Albumin 3.3, Globulin 2.6, Albumin/Globulin Ratio 1.3, Blood Type A POSITIVE, Antibody Screen NEGATIVE, Crossmatch See Detail 12/23/22 21:29: POC Glucose 182 H 12/24/22 02:32: Hgb 7.2 L, Hct 22.4 L 12/24/22 05:53: WBC 4.6, RBC 2.45 L, Hgb 7.4 L, Hct 22.4 L, MCV 91.4, MCH 30.2, MCHC 33.0, RDW Std Deviation 46.3 H, RDW Coeff of Kemi 14.2, Plt Count 111 L, MPV 11.0, Immature Gran % (Auto) 0.400, Neut % (Auto) 62.6, Lymph % (Auto) 24.2, [place] % (Auto) 10.1 H, Eos % (Auto) 2.0, Baso % (Auto) 0.7, Absolute Neuts (auto) 2.9, Absolute Lymphs (auto) 1.10, Nucleated RBC % 0, Sodium 140, Potassium 3.4 L , Chloride 109 H, Carbon Dioxide 25.0, Anion Gap 6, BUN 13, Creatinine 0.82, Estim Creat Clear Calc 80.35, Est GFR (MDRD) Af Amer 118, Est GFR (MDRD) Non-Af 97, BUN/Creatinine Ratio 15.9, Glucose 222 H, Calcium 8.0 L, Total Bilirubin 0.70, AST 18, ALT 19, Alkaline Phosphatase 26 L, Total Protein 5.6 L, Albumin 3.0 L, Globulin 2.6, Albumin/Globulin Ratio 1.2 Physical Exam Narrative GENERAL: cooperative HEENT: Atraumatic; normocephalic EYES; Anicteric, Normal Conjunctiva NECK; supple, normal thyroid, RESPIRATORY: Diminished to auscultation CARDIOVASCULAR: Regular S1 S2, GI: soft, normoactive bowel sounds, : No Renal angle tenderness; EXTREMITIES: No edema, no clubbing, MUSCULOSKELETAL: no muscle wasting NEURO: Awake; no lateralizing signs. SKIN: No Rash PSYCH; Flat affect Assessment & Plan Assessment/Plan (1) Anemia requiring transfusions: PLAN: Plan Patient is a 77-year-old gentleman admitted with symptomatic anemia hemoglobin on admission was 6.0. 1. Symptomatic anemia ? Attributed to recent bleeding from the gum following tooth extraction was patient is on dual antiplatelet therapy. Patient was transfused with 2 unit PRBC on admission admitted to monitored bed repeat H&H ordered 2. Coronary artery disease ? With previous CABG and subsequent PCI patient is on guideline directed medical therapy 3. Valvular heart disease ? With history of TAVR 4. Essential hypertension ? Home medications continued 5. Dyslipidemia -Patient is on statin therapy, continued at home dose 6. Diabetes mellitus type II -patient's oral hypoglycemics held. Placed on Accu-Cheks a.c. and at bedtime and covered with sliding scale insulin 7. GERD ? Patient is on PPI 8. BPH ? Patient is on finasteride as well as Zosyn did continue 9. DVT prophylaxis Bilateral Time spent in the patient's overall evaluation,decision-making process, review of diagnostic data, adjustment of management, discussion with other providers, nursing nursing and ancillary staff involved in patient's care documentation, 35 Minutes Charges/Coding Visit Charges Inpatient E&M: 18511 Subs Hosp L2
[2022-12-24 07:27] LABS: Bedside Glucose 215 mg/dL (74-106)
[2022-12-24] MEDS: Finasteride 5 MG Tablet PO (08:58)
[2022-12-24] MEDS: Pantoprazole Sodium 20 MG Tablet PO (08:58)
[2022-12-24 09:00] VITALS: BP 128/58; PULSE 78; RESP 18; TEMP 36.4; O2SAT 97
--- NOTE | 2022-12-24 10:15 | DS.PCM_ITS ---
Providers Date of Admission: 12/23/22 Date of Discharge: 12/24/22 Primary Care Physician: Margarita Porter, THEO-C Reason For Visit: ACUTE BLOOD LOSS ANEMIA Diagnosis Discharge Diagnosis (1) Anemia requiring transfusions: Status: Acute Code(s): D64.9 - Anemia, unspecified Plan Patient is a 77-year-old gentleman admitted with symptomatic anemia hemoglobin on admission was 6.0. 1. Symptomatic anemia ? Attributed to recent bleeding from the gum following tooth extraction was patient is on dual antiplatelet therapy. Patient was transfused with 2 unit PRBC on admission admitted to monitored bed repeat H&H ordered 2. Coronary artery disease ? With previous CABG and subsequent PCI patient is on guideline directed medical therapy 3. Valvular heart disease ? With history of TAVR 4. Essential hypertension ? Home medications continued 5. Dyslipidemia -Patient is on statin therapy, continued at home dose 6. Diabetes mellitus type II -patient's oral hypoglycemics held. Placed on Accu-Cheks a.c. and at bedtime and covered with sliding scale insulin 7. GERD ? Patient is on PPI 8. BPH ? Patient is on finasteride as well as Zosyn did continue 9. DVT prophylaxis Bilateral Time spent in the patient's overall evaluation,decision-making process, review of diagnostic data, adjustment of management, discussion with other providers, nursing nursing and ancillary staff involved in patient's care documentation, 35 Minutes Medications at Discharge Home Medications alfuzosin 10 mg tablet,extended release 24 hr 10 mg PO DAILY 06/10/16 aspirin 81 mg tablet,delayed release 81 mg PO DAILY@0800 06/10/16 metformin 1,000 mg tablet 1,000 mg PO BIDCM 06/10/16 sitagliptin phosphate 100 mg tablet 100 mg PO DAILY 06/10/16 omeprazole 20 mg capsule,delayed release 20 mg PO DAILY 06/08/20 nitroglycerin 400 mcg/spray translingual (Nitrolingual) 0.4 mg translingual Q5M PRN chest pain #4.9 grams 12/02/21 clopidogrel 75 mg tablet 75 mg PO DAILY #90 tabs 01/24/22 semaglutide 0.25 mg or 0.5 mg (2 mg/1.5 mL) subcutaneous pen injector (Ozempic) 0.5 mg subcut QWEEK 02/12/22 metoprolol succinate 50 mg tablet,extended release 24 hr 50 mg PO DAILY #90 tabs 05/27/22 isosorbide mononitrate 120 mg tablet,extended release 24 hr See Rx Instructions .Route .COMPLEX #90 tabs 06/17/22 rosuvastatin 20 mg tablet See Rx Instructions .Route .COMPLEX #90 tabs 06/17/22 finasteride 5 mg tablet 5 mg PO DAILY 07/14/22 losartan 25 mg tablet 25 mg PO DAILY #90 tabs 11/20/22 polysaccharide iron complex 150 mg iron capsule (Ferrex) 150 mg PO DAILY #90 caps 12/24/22 potassium chloride 20 mEq tablet,extended release(part/cryst) (Klor-Con M) 20 meq PO BIDCM #10 tabs 12/24/22 Hospital Course Summary of Care Provided Minutes Spent on Discharge: 35 Physical Exam Narrative GENERAL: cooperative HEENT: Atraumatic; normocephalic EYES; Anicteric, Normal Conjunctiva NECK; supple, normal thyroid, RESPIRATORY: Diminished to auscultation CARDIOVASCULAR: Regular S1 S2, GI: soft, normoactive bowel sounds, : No Renal angle tenderness; EXTREMITIES: No edema, no clubbing, MUSCULOSKELETAL: no muscle wasting NEURO: Awake; no lateralizing signs. SKIN: No Rash PSYCH; Flat affect Weight / BMI Weight Weight: 97 kg Body Mass Index (BMI) 29.9 ABG / Lab / Microbiology Data 12/24/22 05:53 12/24/22 05:53 Laboratory: Laboratory Results - last 24 hr 12/23/22 14:49: WBC 7.4, RBC 1.90 L, Hgb 6.0 L*, Hct 17.9 L, MCV 94.2 H, MCH 31 .6, MCHC 33.5 D, RDW Std Deviation 45.2 H, RDW Coeff of Kemi 13.4, Plt Count 137 L, MPV 11.6, Immature Gran % (Auto) 0.400, Neut % (Auto) 56.8, Lymph % (Auto) 29.1, [place] % (Auto) 11.8 H, Eos % (Auto) 1.5, Baso % (Auto) 0.4, Absolute Neuts (auto) 4.2, Absolute Lymphs (auto) 2.15, Nucleated RBC % 0, Diff Path Review May foll, Platelet Estimate SLT DEC, RBC Morphology N CHROM, Polychromasia RARE, Anisocytosis 1+, Macrocytosis 1+, Sodium 140, Potassium 3.9, Chloride 109 H, Carbon Dioxide 28.0, Anion Gap 3 L, BUN 21 H, Creatinine 0.97, Est GFR (MDRD) Af Amer 96, Est GFR (MDRD) Non-Af 79, BUN/Creatinine Ratio 21.6 H, Glucose 217 H, Calcium 8.1 L, Total Bilirubin 0.40, AST 16, ALT 20, Alkaline Phosphatase 26 L, Total Protein 5.9 L, Albumin 3.3, Globulin 2.6, Albumin/Globulin Ratio 1.3, Blood Type A POSITIVE, Antibody Screen NEGATIVE, Crossmatch See Detail 12/23/22 21:29: POC Glucose 182 H 12/24/22 02:32: Hgb 7.2 L, Hct 22.4 L 12/24/22 05:53: WBC 4.6, RBC 2.45 L, Hgb 7.4 L, Hct 22.4 L, MCV 91.4, MCH 30.2, MCHC 33.0, RDW Std Deviation 46.3 H, RDW Coeff of Kemi 14.2, Plt Count 111 L, MPV 11.0, Immature Gran % (Auto) 0.400, Neut % (Auto) 62.6, Lymph % (Auto) 24.2, [place] % (Auto) 10.1 H, Eos % (Auto) 2.0, Baso % (Auto) 0.7, Absolute Neuts (auto) 2.9, Absolute Lymphs (auto) 1.10, Nucleated RBC % 0, Sodium 140, Potassium 3.4 L , Chloride 109 H, Carbon Dioxide 25.0, Anion Gap 6, BUN 13, Creatinine 0.82, Estim Creat Clear Calc 80.35, Est GFR (MDRD) Af Amer 118, Est GFR (MDRD) Non-Af 97, BUN/Creatinine Ratio 15.9, Glucose 222 H, Calcium 8.0 L, Total Bilirubin 0.70, AST 18, ALT 19, Alkaline Phosphatase 26 L, Total Protein 5.6 L, Albumin 3.0 L, Globulin 2.6, Albumin/Globulin Ratio 1.2 12/24/22 07:02: POC Glucose 215 H D/C Instructions Discharge Diet: No restrictions Discharge Activity: Return to Normal Activity Call your doctor if you observe: Fever of 101 or Higher, Shortness of breath, Fainting spells and Chest pain Meaningful Use Info Meaningful Use Diagnoses (Choose all that apply): None applicable Discharge Plan Admission Admit Date/Time: 12/23/22 17:55 Attending Provider: Kiran Ayala Primary Care Provider: Margarita Porter Consulting Providers: Melissa Simms Discharge Orders/Prescriptions Prescriptions: New polysaccharide iron complex [Ferrex 150] 150 mg iron Capsule 150 mg PO DAILY Qty: 90 0RF potassium chloride [Klor-Con M20] 20 mEq Tablet,Er Particles/Crystals 20 meq PO BIDCM Qty: 10 0RF Continued finasteride 5 mg tablet 5 mg PO DAILY aspirin 81 MG tablet 81 mg PO DAILY@0800 metformin 1,000 MG tablet 1,000 mg PO BIDCM alfuzosin 10 MG tablet extended release 24 hr 10 mg PO DAILY sitagliptin phosphate 100 MG tablet 100 mg PO DAILY omeprazole 20 MG capsule,delayed release(DR/EC) 20 mg PO DAILY Ozempic 0.25 mg or 0.5 mg(2 mg/1.5 mL) pen injector 0.5 mg SUBCUT QWEEK Patient Comments: INJECT 0.25 MGUSUBCUTANEOUSLY ONCE WEEKLY nitroglycerin [Nitrolingual] 400 mcg/spray spray,non-aerosol 0.4 mg Translingual Q5M PRN (Reason: chest pain) Qty: 4.9 3RF Rx Instructions: until response; do not exceed 3 doses per event clopidogrel 75 mg tablet 75 mg PO DAILY Qty: 90 3RF metoprolol succinate 50 mg tablet extended release 24 hr 50 mg PO DAILY Qty: 90 3RF rosuvastatin 20 mg tablet See Rx Instructions .ROUTE .COMPLEX Qty: 90 4RF Dose Instruction: TAKE 1 TABLET BY MOUTH ONCE DAILY Rx Instructions: TAKE 1 TABLET BY MOUTH ONCE DAILY isosorbide mononitrate 120 mg tablet extended release 24 hr See Rx Instructions .ROUTE .COMPLEX Qty: 90 4RF Dose Instruction: TAKE 1 TABLET BY MOUTH EVERY MORNING Rx Instructions: TAKE 1 TABLET BY MOUTH EVERY MORNING losartan 25 mg tablet 25 mg PO DAILY Qty: 90 3RF Referrals / Follow Up: Margarita Porter, THEO-C [Primary Care Provider] - Within 1 Week (For repeat CBC ) Disposition Disposition (needs filled in before D/C Order can be placed): Home, Self Care Charges/Coding Visit Charges Inpatient E&M: 48521 Disch Hosp >30min
[2022-12-24] MEDS: Potassium Chloride Oral Tablet 20 MEQ PO (10:35)
[2022-12-24] MEDS: Iron Polysaccharide Complex 150 MG CAPSULE PO (10:35)
--- NOTE | 2022-12-24 10:35 | CASEMGMT ---
RN ALYSON Face to Face with patient for initial transition planning/care coordination assessment. RN CM introduced self and role at [facility] [place]. Patient lying in bed, alert and oriented. Patient willing to participate in assessment and is able to answer all questions appropriately. Care providers, pharmacy, and demographics verified. Patient wishes to discharge home, denies need for home health at this time. Patient states he has no further needs or concerns at this time. CM to follow for discharge planning needs that may arise. PCP:Margarita Porter Specialists:CHRISG, cardio Preferred Pharmacy:[facility] [place] Retail Insurance:[employer] [facility] [place]; [facility] A Prescription Benefit: yes LNOK:Eli Diana, ; Luigi Diana, son Living Arrangements:Pt lives with in a single story home with 3 steps to enter with a rail. Pt reports he is normally I in ADL's and denies concerns at home. Pt states once he is home, he will regain his strength. Transportation: Pt drives self and denies concerns with transportation. DME:Pt has a FWW but does not use HHC:Denies hx of SNF:Denies hx of Disposition Plan:Home
[2022-12-24 11:10] VITALS: BP 135/62; PULSE 87; RESP 18; TEMP 36.8; O2SAT 97
--- NOTE | 2022-12-24 11:11 | CASEMGMT ---
Social work SW met with pt to discuss advance directives.? Pt states he has completed advance directives many years ago but does not know where they are at. SW offered to assist pt in completing new documents. Pt would like to do that but not today. JOSELINE provided pt with AD Rack Card and educated pt on process of completing as an outpatient. Pt understanding and expresses intent to do this. DIANA Lizama
[2022-12-25 09:53] LABS: Pathologist Review Reviewed
== END 2022-12-24 11:19 | disposition home or self-care (01) | DRG 920 ==
LOC: ED 15:23 → MS3 18:47
PROVIDERS: Admitting Provider Family Medicine; Emergency Provider Emergency Medicine; PCP Nurse Practitioner Family; Visit Provider Internal Medicine
DX: L76.22 Postprocedural hemorrhage of skin and subcutaneous tissue following other procedure (principal); D62 Acute posthemorrhagic anemia; E11.51 Type 2 diabetes mellitus with diabetic peripheral angiopathy without gangrene; E11.65 Type 2 diabetes mellitus with hyperglycemia; I10 Essential (primary) hypertension; I35.0 Nonrheumatic aortic (valve) stenosis; E78.2 Mixed hyperlipidemia; K21.9 Gastro-esophageal reflux disease without esophagitis; I25.10 Atherosclerotic heart disease of native coronary artery without angina pectoris; Z95.3 Presence of xenogenic heart valve; N40.0 Benign prostatic hyperplasia without lower urinary tract symptoms; Z95.1 Presence of aortocoronary bypass graft; Z95.5 Presence of coronary angioplasty implant and graft; Z79.02 Long term (current) use of antithrombotics/antiplatelets; Z79.82 Long term (current) use of aspirin; Z79.84 Long term (current) use of oral hypoglycemic drugs; Z79.85 Long-term (current) use of injectable non-insulin antidiabetic drugs; Z79.899 Other long term (current) drug therapy
CPT/HCPCS: 36415; 80053; 82962; 85014; 85018; 85025; 86850; 86900; 86901; 86920; 86922; 99284; J7040; P9016; A4216

== ENCOUNTER → 2022-12-23 | Outpatient (CLI) | payer OTHER, SELFPAY ==
[2022-12-23 11:05] LABS: Absolute Lymphocyte Count 2.02 X10^3/uL (0.83-4.51); Basophil# 0.04 X10^3/uL; Basophil% 0.5 % (0-1); Eosinophil# 0.08 X10^3/uL; Hematocrit 19.8 % (40-54); Hemoglobin 6.3 g/dL (13.0-16.5); Lymphocyte # 2.02 X10^3/ul (0.83-4.51); Lymphocyte % 25.2 % (19-41); Mean Corp Hgb Conc 31.8 g/dL (32-36); Mean Corpuscular Hgb 31.2 pg (27.0-32.0); Mean Platelet Vol. 11.3 fl (6.2-12.0); Monocyte# 0.91 X10^3/uL; Monocyte% 11.3 % (0-10); NRBC Flagged by Analyzer 0 % (0-5); Neutrophil # 4.95 X10^3/uL (2.7-7.7); Neutrophil % 61.6 % (47-70); Platelet Count 154 K/mm3 (150-450); RBC Distribution Width CV 13.6 % (11.6-14.6); RBC Distribution Width SD 47.6 fl (35.1-43.9); Red Blood Count 2.02 M/mm3 (4.6-6.2)
== END | disposition home or self-care (01) ==
PROVIDERS: PCP Nurse Practitioner Family; Referring Provider Nurse Practitioner Family; Visit Provider Nurse Practitioner Family
DX: D62 Acute posthemorrhagic anemia (principal)
CPT/HCPCS: 36415; 85025

== ENCOUNTER → 2023-01-06 | Outpatient (CLI) | payer OTHER, SELFPAY ==
[2023-01-06 07:29] LABS: Absolute Neutrophil Count 2.9 X10^3/uL (2.0-7.7); Basophil# 0.04 X10^3/uL; Basophil% 0.8 % (0-1); Eosinophil# 0.25 X10^3/uL; Eosinophils% 5.1 % (0-5); Hematocrit 25.9 % (40-54); Hemoglobin 7.9 g/dL (13.0-16.5); Lymphocyte % 24.4 % (19-41); Mean Corp Hgb Conc 30.5 g/dL (32-36); Mean Corpuscular Hgb 27.5 pg (27.0-32.0); Mean Corpuscular Volume 90.2 fL (80-94); Mean Platelet Vol. 12.2 fl (6.2-12.0); Monocyte# 0.55 X10^3/uL; Monocyte% 11.2 % (0-10); NRBC Flagged by Analyzer 0 % (0-5); Neutrophil # 2.86 X10^3/uL (2.7-7.7); Neutrophil % 58.3 % (47-70); Platelet Count 171 K/mm3 (150-450); RBC Distribution Width CV 14.3 % (11.6-14.6); RBC Distribution Width SD 47.3 fl (35.1-43.9); Red Blood Count 2.87 M/mm3 (4.6-6.2); White Blood Count 4.9 K/mm3 (4.4-11.0)
[2023-01-06 08:25] LABS: ALB/GLOB Ratio 1.2 RATIO (0.9-2.4); AST(SGOT) 16 U/L (15-37); Alanine Aminotransfer ALT/SGPT 26 U/L (16-61); Albumin, Serum 3.7 g/dL (3.2-5.0); Alkaline Phosphatase 33 U/L (45-117); Anion Gap 8 (5-15); BUN 14 mg/dL (7-18); BUN/Creat Ratio 15.2 RATIO (10-20); Calcium,Total 8.7 mg/dL (8.5-10.1); Chloride 103 mmol/L (98-107); Creatinine, Serum 0.92 mg/dL (0.70-1.30); EST Glomerular Filtration Rate 85 mL/min (>60); Est Glom Filt Rate - Afr Amer 103 mL/min (>60); Globulin 3.1 g/dL (2.2-4.2); Glucose 254 mg/dL (74-106); Protein, Total 6.8 g/dL (6.4-8.2); Sodium Level 137 mmol/L (136-145)
== END | disposition home or self-care (01) ==
LOC: LAB 06:12
PROVIDERS: PCP Nurse Practitioner Family; Referring Provider Nurse Practitioner Family; Visit Provider Nurse Practitioner Family
DX: D62 Acute posthemorrhagic anemia (principal)
CPT/HCPCS: 36415; 80053; 85025

== ENCOUNTER → 2023-02-06 | Outpatient (CLI) | payer OTHER, SELFPAY ==
[2023-02-06 15:01] LABS: Absolute Lymphocyte Count 1.17 X10^3/uL (0.83-4.51); Absolute Neutrophil Count 2.8 X10^3/uL (2.0-7.7); Basophil# 0.05 X10^3/uL; Eosinophils% 4.1 % (0-5); Hematocrit 26.8 % (40-54); Hemoglobin 7.7 g/dL (13.0-16.5); Lymphocyte # 1.17 X10^3/ul (0.83-4.51); Lymphocyte % 24.2 % (19-41); Mean Corp Hgb Conc 28.7 g/dL (32-36); Mean Corpuscular Hgb 23.3 pg (27.0-32.0); Mean Platelet Vol. 12.4 fl (6.2-12.0); Monocyte# 0.63 X10^3/uL; NRBC Flagged by Analyzer 0 % (0-5); Neutrophil # 2.77 X10^3/uL (2.7-7.7); Neutrophil % 57.5 % (47-70); Platelet Count 178 K/mm3 (150-450); RBC Distribution Width CV 17.2 % (11.6-14.6); RBC Distribution Width SD 51.4 fl (35.1-43.9); Red Blood Count 3.31 M/mm3 (4.6-6.2); White Blood Count 4.8 K/mm3 (4.4-11.0)
[2023-02-06 15:52] LABS: Anion Gap 7 (5-15); BUN 17 mg/dL (7-18); BUN/Creat Ratio 16.3 RATIO (10-20); Calcium,Total 8.8 mg/dL (8.5-10.1); Chloride 106 mmol/L (98-107); Creatinine, Serum 1.04 mg/dL (0.70-1.30); EST Glomerular Filtration Rate 74 mL/min (>60); Est Glom Filt Rate - Afr Amer 89 mL/min (>60); Glucose 261 mg/dL (74-106); Sodium Level 139 mmol/L (136-145)
[2023-02-06 15:56] LABS: Hemoglobin A1c 7.8 % (3.8-5.6)
[2023-02-06 17:43] LABS: BNP,B-Type NATRIURETIC PEPTIDE 228.8 pg/mL (0-100)
== END | disposition home or self-care (01) ==
LOC: LAB 14:25
PROVIDERS: Physician Assistant Medical; PCP Nurse Practitioner Family; Referring Provider Nurse Practitioner Family; Visit Provider Nurse Practitioner Family
DX: D62 Acute posthemorrhagic anemia (principal); E11.9 Type 2 diabetes mellitus without complications; Z95.5 Presence of coronary angioplasty implant and graft; Z95.1 Presence of aortocoronary bypass graft
CPT/HCPCS: 36415; 80048; 83036; 83880; 85025

== ENCOUNTER 2023-02-10 07:45 | Outpatient (CLI) | payer OTHER, SELFPAY ==
[2023-02-10] VITALS (7 sets, daily range): BP systolic 126–149; BP diastolic 61–66; PULSE 69–86; RESP 16–18; TEMP 36.1–36.6; O2SAT 97–100; BMI 30.7
[2023-02-10] MEDS: 0.9% Normal Saline (500mL Bag) 500 ML 15 ML IV (10:04)
[2023-02-10] MEDS: 0.9% NaCl Peripheral Flush Adult/Peds IV (10:04)
[2023-02-10] MEDS: Furosemide 20 MG/2 ML VIAL IV (12:13)
== END 2023-02-10 07:46 | disposition home or self-care (01) ==
LOC: MEDOUTP 07:46
PROVIDERS: PCP Nurse Practitioner Family; Referring Provider Nurse Practitioner Family; Visit Provider Nurse Practitioner Family
DX: D62 Acute posthemorrhagic anemia (principal)
CPT/HCPCS: 36430; 86850; 86900; 86901; 86920; 86922; J7040; P9016; A4216; J1940

== ENCOUNTER → 2023-03-06 | Outpatient (CLI) | payer OTHER, SELFPAY ==
[2023-03-06 15:13] LABS: Absolute Lymphocyte Count 1.65 X10^3/uL (0.83-4.51); Basophil# 0.05 X10^3/uL; Basophil% 0.9 % (0-1); Eosinophil# 0.35 X10^3/uL; Eosinophils% 6.2 % (0-5); Hematocrit 34.2 % (40-54); Hemoglobin 9.9 g/dL (13.0-16.5); Lymphocyte # 1.65 X10^3/ul (0.83-4.51); Mean Corp Hgb Conc 28.9 g/dL (32-36); Mean Corpuscular Volume 79.5 fL (80-94); Mean Platelet Vol. 13.1 fl (6.2-12.0); Monocyte# 0.68 X10^3/uL; NRBC Flagged by Analyzer 0 % (0-5); Neutrophil # 2.95 X10^3/uL (2.7-7.7); Neutrophil % 51.7 % (47-70); Platelet Count 172 K/mm3 (150-450); RBC Distribution Width CV 19.5 % (11.6-14.6); RBC Distribution Width SD 55.8 fl (35.1-43.9); White Blood Count 5.7 K/mm3 (4.4-11.0)
[2023-03-06 15:41] LABS: Anion Gap 5 (5-15); BUN 18 mg/dL (7-18); BUN/Creat Ratio 15.8 RATIO (10-20); Calcium,Total 8.4 mg/dL (8.5-10.1); Chloride 102 mmol/L (98-107); Creatinine, Serum 1.14 mg/dL (0.70-1.30); EST Glomerular Filtration Rate 66 mL/min (>60); Est Glom Filt Rate - Afr Amer 80 mL/min (>60); Glucose 226 mg/dL (74-106); Potassium 3.8 mmol/L (3.5-5.1); Sodium Level 136 mmol/L (136-145)
[2023-03-06 15:52] LABS: Hemoglobin A1c 7.6 % (3.8-5.6)
== END | disposition home or self-care (01) ==
LOC: LAB 13:42
PROVIDERS: PCP Nurse Practitioner Family; Referring Provider Nurse Practitioner Family; Visit Provider Nurse Practitioner Family
DX: D62 Acute posthemorrhagic anemia (principal); E11.9 Type 2 diabetes mellitus without complications
CPT/HCPCS: 36415; 80048; 83036; 85025

== ENCOUNTER → 2023-07-04 | Outpatient (CLI) | payer OTHER, SELFPAY ==
[2023-07-04 07:51] LABS: Absolute Lymphocyte Count 1.65 X10^3/uL (0.83-4.51); Absolute Neutrophil Count 3.2 X10^3/uL (2.0-7.7); Basophil# 0.05 X10^3/uL; Basophil% 0.9 % (0-1); Eosinophil# 0.28 X10^3/uL; Eosinophils% 4.8 % (0-5); Hematocrit 34.9 % (40-54); Hemoglobin 10.2 g/dL (13.0-16.5); Lymphocyte # 1.65 X10^3/ul (0.83-4.51); Lymphocyte % 28.3 % (19-41); Mean Corp Hgb Conc 29.2 g/dL (32-36); Mean Corpuscular Hgb 22.6 pg (27.0-32.0); Mean Corpuscular Volume 77.2 fL (80-94); Mean Platelet Vol. 12.7 fl (6.2-12.0); Monocyte# 0.61 X10^3/uL; Monocyte% 10.4 % (0-10); NRBC Flagged by Analyzer 0 % (0-5); Neutrophil # 3.23 X10^3/uL (2.7-7.7); Neutrophil % 55.3 % (47-70); Platelet Count 133 K/mm3 (150-450); RBC Distribution Width CV 16.6 % (11.6-14.6); Red Blood Count 4.52 M/mm3 (4.6-6.2); White Blood Count 5.8 K/mm3 (4.4-11.0)
[2023-07-04 08:08] LABS: ALB/GLOB Ratio 1.1 RATIO (0.9-2.4); AST(SGOT) 19 U/L (15-37); Alanine Aminotransfer ALT/SGPT 21 U/L (16-61); Albumin, Serum 3.9 g/dL (3.2-5.0); Alkaline Phosphatase 44 U/L (45-117); Anion Gap 4 (5-15); BUN 13 mg/dL (7-18); BUN/Creat Ratio 16.2 RATIO (10-20); Chloride 103 mmol/L (98-107); Cholesterol 111 mg/dL (200); EST Glomerular Filtration Rate 99 mL/min (>60); Est Glom Filt Rate - Afr Amer 120 mL/min (>60); Globulin 3.4 g/dL (2.2-4.2); Glucose 245 mg/dL (74-106); High Density Lipoprotein 44 mg/dL; Potassium 3.8 mmol/L (3.5-5.1); Protein, Total 7.3 g/dL (6.4-8.2); Sodium Level 135 mmol/L (136-145); Triglycerides 124 mg/dL; Very Low Density Lipoprotein 25 mg/dL (5-40)
[2023-07-04 08:57] LABS: Hemoglobin A1c 10.1 % (3.8-5.6)
[2023-07-07 01:07] LABS: PSA, Free 1.29 ng/mL; PSA, Free % 32.3 % (.)
== END | disposition home or self-care (01) ==
LOC: LAB 06:56
PROVIDERS: PCP Nurse Practitioner Family; Referring Provider Nurse Practitioner Family; Visit Provider Nurse Practitioner Family
DX: E11.9 Type 2 diabetes mellitus without complications (principal); R97.20 Elevated prostate specific antigen [PSA]; D62 Acute posthemorrhagic anemia; N39.41 Urge incontinence
CPT/HCPCS: 36415; 80053; 80061; 83036; 84153; 85025; 87086; 87088

== ENCOUNTER → 2023-07-08 | Outpatient (CLI) | payer OTHER, SELFPAY ==
--- NOTE | 2023-07-08 13:49 | ECHOCS_ITS ---
Reason For Study: Heart Failure Procedure This was a 2D Doppler, Color Flow transthoracic echocardiogram. Contrast injection was performed. Exam performed in department. Left Ventricle Normal LV size. Left ventricular systolic function is normal. The estimated ejection fraction is 65 %. Stage 1 diastolic dysfunction. No regional wall motion abnormalities noted. Right Ventricle Normal RV size. Normal systolic function. Tricuspid Valve Normal tricuspid valve. Mild tricuspid valve insufficiency. Pulmonary artery systolic pressure is 24 mmHg. Aortic Valve Peak aortic valve gradient 24 mmHg. Mean aortic valve gradient 15 mmHg. Bioprosthetic aortic valve. Pulmonic Valve Normal pulmonic valve. Great Vessels Normal aortic root. The pulmonary artery is normal size. Normal inferior vena cava. Pericardium/Pleural No pericardial effusion. Medication Diluted definity 1.5ml given slow IV push to enhance endocardial definition. MMode/2D Measurements & Calculations LVIDd: 5.4 cm IVSd: 0.86 cm LVOT diam: 2.1 cm LVIDs: 4.1 cm LVPWd: 0.82 cm LVOT area: 3.5 cm2 RVDd: 3.5 cm FS: 23.0 % Ao root diam: 3.1 cm LAV(MOD-bp): 50.6 ml LVAd ap4: 32.5 cm2 LAV(MOD-sp2): 55.1 ml LVLd ap4: 8.1 cm LAV(MOD-sp4): 45.7 ml EDV(MOD-sp4): 110.5 ml EDV(sp4-el): 110.4 ml LVAs ap4: 17.4 cm2 LVLs ap4: 6.9 cm ESV(MOD-sp4): 38.7 ml ESV(sp4-el): 37.6 ml EF(MOD-sp4): 65.0 % EF(sp4-el): 65.9 % SV(MOD-sp4): 71.8 ml SV(sp4-el): 72.8 ml LA A4 area: 18.3 cm2 LA dimension(2D): 4.4 cm RA A4 area: 10.3 cm2 TAPSE: 1.7 cm Time Measurements MV dec time: 0.23 sec Doppler Measurements & Calculations MV E max jaspal: 101.4 cm/sec Lat Peak E' Jaspal: 10.1 cm/sec Med Peak E' Jaspal: 7.9 cm/sec MV A max jaspal: 118.2 cm/sec E/E' lat: 10.1 E/E' med: 12.8 MV E/A: 0.86 Ao V2 max: 246.9 cm/sec LV V1 max: 121.6 cm/sec MV dec slope: 441.2 cm/sec2 Ao max P.4 mmHg LV V1 max P.9 mmHg Ao V2 mean: 181.1 cm/sec LV V1 mean P.0 mmHg Ao mean P.8 mmHg LV V1 mean: 95.8 cm/sec Ao V2 VTI: 58.8 cm LV V1 VTI: 28.7 cm AV (velocity ratio): 0.49 NICHOLAS(I,D): 1.7 cm2 NICHOLAS(V,D): 1.7 cm2 SV(LVOT): 100.8 ml PA V2 max: 163.5 cm/sec TR max jaspal: 229.3 cm/sec PA V2 mean: 108.9 cm/sec TR max P.0 mmHg ECHO/Echo Complete W/ Contrast Interpretation Summary Normal LV size. Left ventricular systolic function is normal. The estimated ejection fraction is 65 %. Stage 1 diastolic dysfunction. Mild tricuspid valve insufficiency. Contrast injection was performed. Ordering Physician: Wen Fuchs Referring Physician: Margarita Porter Performed By: Jessica Anguiano, GABRIELE, RVT
== END | disposition home or self-care (01) ==
LOC: CVS 13:48
PROVIDERS: PCP Nurse Practitioner Family; Referring Provider Physician Assistant Medical; Visit Provider Physician Assistant Medical
DX: I50.9 Heart failure, unspecified (principal)
CPT/HCPCS: 93306; Q9957; A4216; C8929

== ENCOUNTER → 2024-05-28 | Outpatient (CLI) | payer OTHER, SELFPAY ==
[2024-05-28 08:15] LABS: Hemoglobin A1c 12.5 % (3.8-5.6)
[2024-05-28 08:16] LABS: Absolute Lymphocyte Count 1.65 X10^3/uL (0.83-4.51); Absolute Neutrophil Count 3.1 X10^3/uL (2.0-7.7); Basophil# 0.04 X10^3/uL; Basophil% 0.7 % (0-1); Eosinophil# 0.25 X10^3/uL; Eosinophils% 4.4 % (0-5); Lymphocyte # 1.65 X10^3/ul (0.83-4.51); Lymphocyte % 29.2 % (19-41); Mean Corp Hgb Conc 30.6 g/dL (32-36); Mean Corpuscular Hgb 24.7 pg (27.0-32.0); Mean Corpuscular Volume 80.7 fL (80-94); Mean Platelet Vol. 12.8 fl (6.2-12.0); Monocyte# 0.62 X10^3/uL; NRBC Flagged by Analyzer 0 % (0-5); Neutrophil # 3.07 X10^3/uL (2.7-7.7); Neutrophil % 54.3 % (47-70); Platelet Count 134 K/mm3 (150-450); RBC Distribution Width CV 15.3 % (11.6-14.6); RBC Distribution Width SD 44.1 fl (35.1-43.9); Red Blood Count 4.46 M/mm3 (4.6-6.2); White Blood Count 5.7 K/mm3 (4.4-11.0)
[2024-05-28 08:51] LABS: Color, Urine Yellow (Yellow); Glucose, Dipstick 1000 mg/dl (Normal); Ketone-Dipstick Negative (Negative); Leukocyte Esterase-Dipstick Negative /ul (Negative); Nitrite-Dipstick Negative (Negative); Occult Blood-Urine Negative /ul (Negative); Protein-Dipstick 15 mg/dl (Negative); Urine Bilirubin Dipstick Negative (Negative); Urine Clarity Clear (Clear); Urine Urobilinogen Normal (Normal); Urine pH 6.5 (5.0 - 8.0)
[2024-05-28 08:59] LABS: ALB/GLOB Ratio 1.1 RATIO (0.9-2.4); AST(SGOT) 11 U/L (15-37); Alanine Aminotransfer ALT/SGPT 18 U/L (16-61); Albumin, Serum 3.9 g/dL (3.2-5.0); Alkaline Phosphatase 45 U/L (45-117); Anion Gap 6 (5-15); BUN 15 mg/dL (7-18); BUN/Creat Ratio 17.3 RATIO (10-20); Calcium,Total 9.4 mg/dL (8.5-10.1); Chloride 104 mmol/L (98-107); Cholesterol 126 mg/dL (200); Creatinine, Serum 0.86 mg/dL (0.70-1.30); EST Glomerular Filtration Rate 91 mL/min (>60); Est Glom Filt Rate - Afr Amer 110 mL/min (>60); Globulin 3.4 g/dL (2.2-4.2); Glucose 262 mg/dL (74-106); High Density Lipoprotein 52 mg/dL; Magnesium 1.8 mg/dL (1.6-2.6); PSA,Total - Annual Screen 4.92 ng/mL (0.00-4.00); Potassium 3.9 mmol/L (3.5-5.1); Protein, Total 7.3 g/dL (6.4-8.2); Sodium Level 139 mmol/L (136-145); Triglycerides 167 mg/dL; Very Low Density Lipoprotein 33 mg/dL (5-40)
[2024-05-28 10:27] LABS: Microalbumin,Random Urine 57.4 mg/L (NO RANGE EST.); Microalbumin:Creatinine Ratio 78.8 mg/g CRE (<30 mg/g CRE)
== END | disposition home or self-care (01) ==
LOC: LAB 07:08
PROVIDERS: PCP Nurse Practitioner Family; Referring Provider Nurse Practitioner Family; Visit Provider Nurse Practitioner Family
DX: E78.00 Pure hypercholesterolemia, unspecified (principal); E11.9 Type 2 diabetes mellitus without complications; D62 Acute posthemorrhagic anemia; E83.42 Hypomagnesemia; Z12.5 Encounter for screening for malignant neoplasm of prostate
CPT/HCPCS: 36415; 80053; 80061; 81002; 82043; 82570; 83036; 83735; 84153; 85025; G0103

== ENCOUNTER → 2024-06-01 | Outpatient (CLI) | payer OTHER, SELFPAY | END | disposition home or self-care (01) | LOC: LAB.FUTURE 05:01 | PROVIDERS: PCP Nurse Practitioner Family; Visit Provider Nurse Practitioner Family | DX: E78.00 Pure hypercholesterolemia, unspecified (principal); E11.9 Type 2 diabetes mellitus without complications ==

== ENCOUNTER → 2024-08-20 | Outpatient (CLI) | payer OTHER, SELFPAY ==
[2024-08-20 07:53] LABS: Cholesterol 117 mg/dL (<=200); High Density Lipoprotein 41 mg/dL; Low Density Lipoprotein Calc. 40 mg/dL; Triglycerides 180 mg/dL; Very Low Density Lipoprotein 36 mg/dL (5-40); cholesterol:hdl ratio screen 2.83
[2024-08-20 07:57] LABS: Potassium 4.3 mmol/L (3.3-5.1)
== END | disposition home or self-care (01) ==
LOC: LAB 06:59
PROVIDERS: PCP Nurse Practitioner Family; Referring Provider Nurse Practitioner Family; Visit Provider Nurse Practitioner Family
DX: E78.00 Pure hypercholesterolemia, unspecified (principal); E11.9 Type 2 diabetes mellitus without complications
CPT/HCPCS: 36415; 80061; 84132

== ENCOUNTER → 2024-09-17 | Outpatient (CLI) | payer OTHER, SELFPAY ==
[2024-09-17 07:48] LABS: Hemoglobin A1c 10.4 % (<=5.6)
== END | disposition home or self-care (01) ==
LOC: LAB 06:55
PROVIDERS: PCP Nurse Practitioner Family; Referring Provider Nurse Practitioner Family; Visit Provider Nurse Practitioner Family
DX: E11.9 Type 2 diabetes mellitus without complications (principal)
CPT/HCPCS: 36415; 83036

== ENCOUNTER → 2024-11-26 | Outpatient (CLI) | payer OTHER, SELFPAY ==
[2024-11-26 08:04] LABS: Hematocrit 33.6 % (40-54); Hemoglobin 10.5 g/dL (13.0-16.5); Immature Granulocytes Count 0.010 X10^3/uL (0.0-0.0); Mean Corp Hgb Conc 31.3 g/dL (32-36); Mean Corpuscular Volume 81.6 fL (80-94); Mean Platelet Vol. 12.0 fl (6.2-12.0); NRBC Flagged by Analyzer 0 % (0-5); Platelet Count 131 K/mm3 (150-450); RBC Distribution Width CV 15.0 % (11.6-14.6); RBC Distribution Width SD 44.2 fl (35.1-43.9); Red Blood Count 4.12 M/mm3 (4.6-6.2); White Blood Count 4.5 K/mm3 (4.4-11.0)
[2024-11-26 09:02] LABS: Creatinine, Urine (random) 85.80 mg/dL (39.00-259.00)
[2024-11-26 09:09] LABS: AST(SGOT) 20 U/L (<=37); Alanine Aminotransfer ALT/SGPT 17 U/L (<=46); Albumin, Serum 4.2 g/dL (3.4-4.8); Alkaline Phosphatase 43 U/L (40-129); Anion Gap 12 (5-15); BUN 16 mg/dL (4-19); BUN/Creat Ratio 19.6 RATIO (10-20); Calcium,Total 9.2 mg/dL (7.6-11.0); Carbon Dioxide 25.7 mmol/L (21.0-32.0); Chloride 99 mmol/L (98-108); Globulin 2.5 g/dL (2.2-4.2); Glucose 190 mg/dL (70-99); Potassium 4.0 mmol/L (3.3-5.1)
[2024-11-26 09:32] LABS: Microalbumin,Random Urine 26.3 mg/L (<20 mg/L)
== END | disposition home or self-care (01) ==
LOC: LAB 06:58
PROVIDERS: PCP Nurse Practitioner Family; Referring Provider Nurse Practitioner Family; Visit Provider Nurse Practitioner Family
DX: E11.29 Type 2 diabetes mellitus with other diabetic kidney complication (principal); I11.9 Hypertensive heart disease without heart failure; D62 Acute posthemorrhagic anemia
CPT/HCPCS: 36415; 80053; 82043; 82570; 83036; 84443; 85025

== ENCOUNTER 2024-12-14 05:23 | Emergency (ER) | payer OTHER, SELFPAY ==
[2024-12-14 05:26] VITALS: BP 194/83; PULSE 91; RESP 18; TEMP 37; O2SAT 99; BMI 29.0
--- NOTE | 2024-12-14 05:37 | EX.ED.DYSGE1 ---
HPI History of Present Illness Chief Complaint: Dizziness Detail of Chief Complaint: Room spinning Informant: patient and spouse/S.O. Onset/Context/Timing Onset: Today and Hours Context: Sudden Onset Timing: Intermittent Quality: Room spinning Location: Occurred at home when he niraj from supine position and when he turned to th Current Severity: Gone Maximum Severity: Severe Worsened by: Change in position (upright and turning to the left) Relieved by: Remaining still Associated Symptoms Associated Symptoms: Nausea without visual disturbance and specifically diplopia Narrative Narrative: Patient is a 79-year-old male. He has history of coronary disease, congestive heart failure, peripheral arterial disease with claudication, mixed hyperlipidemia, hypertension, aortic stenosis, paroxysmal ventricular tachycardia and diabetes. He denies headache. He has chronic tinnitus. He denies rhinorrhea, congestion postnasal drainage. No sore throat. No trouble with speech or swallowing. He denies focal motor weakness. He denies loss of sensation. When he is vertiginous he does have nausea. He denies history of benign positional vertigo. He is on Plavix. He apparently had a fall 3 weeks ago. Prior H&H obtained on May 28, 2024 was 11.0 and 36.0. His indices are essentially unchanged. There is no history of black or maroon-colored stool. He has not had hematuria. He denies orthostatic symptoms. 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 Aortic stenosis Paroxysmal atrial tachycardia Paroxysmal ventricular tachycardia Diabetes mellitus Home Medications ?Medication ?Instructions ?Recorded ?Last Taken ?Type metformin 1,000 mg tablet 1,000 mg PO BIDCM 06/10/16 06/07/20 History omeprazole 20 mg capsule,delayed 20 mg PO DAILY 06/08/20 Unknown History release semaglutide 0.25 mg or 0.5 mg (2 0.5 mg subcut QWEEK 02/12/22 Unknown History mg/1.5 mL) subcutaneous pen injector (Ozempic) nitroglycerin 400 mcg/spray 0.4 mg translingual Q5M PRN chest 02/06/23 Unknown Rx translingual (Nitrolingual) pain #4.9 grams alfuzosin 10 mg tablet,extended 10 mg PO DAILY 02/16/23 Unknown History release 24 hr (Uroxatral) betamethasone dipropionate 0.05 % 1 applic topical DAILY 05/20/23 Unknown History lotion clopidogrel 75 mg tablet 75 mg PO DAILY #90 tabs 02/09/24 Unknown Rx metoprolol succinate 50 mg 50 mg PO DAILY #90 tabs 05/25/24 Unknown Rx tablet,extended release 24 hr isosorbide mononitrate 120 mg See Rx Instructions .Route 09/19/24 Unknown Rx tablet,extended release 24 hr .COMPLEX #90 tabs rosuvastatin 20 mg tablet See Rx Instructions .Route 09/19/24 Unknown Rx .COMPLEX #90 tabs losartan 25 mg tablet 25 mg PO DAILY #90 TABLETS 11/16/24 Unknown Rx Allergy/AdvReac Type Severity Reaction Status Date / Time ranolazine (From Ranexa) AdvReac Intermediate Swelling Verified 07/07/24 14:30 celecoxib (From Celebrex) AdvReac Unknown Verified 07/07/24 14:30 simvastatin AdvReac Unknown Verified 07/07/24 14:30 Family History Father Cancer Mother Cancer Brother CAD (coronary artery disease) Hx CABG Sister Diabetes Surgical History History of carpal tunnel surgery History of shoulder surgery History of cholecystectomy History of appendectomy Presence of aortocoronary bypass graft (~02/09/07) History of percutaneous transluminal coronary angioplasty H/O aortic valve replacement (~08/20/16) Social History Smoking Status: Never smoker alcohol intake: never substance use type: does not use caffeine: Yes Type: coffee what type of physical activity do you participate in: none seatbelt use: always do you feel safe at home: Yes ROS ROS ED Constitutional Constitutional ED: Denies chills, fever(s), subjective or weight loss Eyes Eyes: Denies blurry vision, change in vision or diplopia ENT ENT ED: Reports other Details: Chronic tinnitus ; Denies ear pain, rhinorrhea or sore throat Cardiovascular Cardiovascular: Denies chest pain or palpitations Respiratory/Chest Respiratory/Chest: Denies cough, dyspnea or dyspnea on exertion Gastrointestinal Gastrointestinal: Reports nausea; Denies abdominal pain, diarrhea, melena or vomiting Genitourinary Genitourinary ED: Denies hematuria Neurologic Neurologic: Reports weakness; Denies headache(s) or paresthesias Hematologic/Lymphatic Hematologic/Lymphatic: Reports easy bruising EXAM Physical Exam Const Vital Signs: 12/14/24 05:26 12/14/24 05:53 Temperature 98.6 F Temperature Source Axillary Pulse Rate 91 Respiratory Rate 18 Blood Pressure 194/83 H 177/79 H Blood Pressure Mean 120 111 Pulse Ox 99 Oxygen Delivery Method Nasal Cannula Positive well nourished and well developed General Appearance ED: well developed and NAD; Negative for pallor HEENT Reports moist mucous membranes HEENT Narrative: Head is atraumatic and normocephalic. Ears normal. Nares patent. Posterior pharynx is normal. Eyes PERRL and EOMs intact bilaterally Eyes Narrative: Patient has nystagmus with forced lateral gaze to the right and left. There is no central gaze nystagmus. He has no diplopia. There is no subconjunctival hemorrhage noted. General Eye ED: Negative for pale conjunctiva or scleral icterus Neck no lymphadenopathy, supple and no JVD Resp normal respiratory effort and clear to auscultation bilaterally Cardio regular rate, regular rhythm, S1 normal heart sound, S2 normal heart sound and no murmurs GI normal to inspection, nondistended, normoactive bowel sounds, non-tender, non-distended and no masses; Negative for hepatosplenomegaly Back/Spine no CVA tenderness Back/Spine Narrative: Abrasions left lower back. This is due to his fall 3 weeks ago. Extremity normal to inspection General Extremety ED: Negative for edema General Extremity: Negative for edema Neuro oriented x3, CN's II-XII intact bilaterally and no sensory deficits noted Neuro Narrative: There is no dysmetria. Romberg with eyes open and close is negative. The eye askew test was negative. Kinga-Hallpike was positive with head to to the right. He had horizontal nystagmus with fast component to the right. Sensorium / Orientation: alert Motor Exam: strength 5/5 throughout Psych mental status grossly normal Skin no rashes or lesions noted, no wounds and skin turgor normal General Skin Exam: Negative for elasticity normal, jaundice or pallor MDM MDM MDM Narrative Medical decision making narrative: Differential diagnosis would include include central versus peripheral vertigo. Since this is paroxysmal and is positional. Need to evaluate for ear pathology, benign positional vertigo. This may represent his M?ni?re's disease. This is unlikely since its positional and paroxysmal. Since patient had a positive Kinga-Hallpike maneuver will premedicate with Zofran and ODT for his nausea and prevent vomiting during Kati maneuver. Suspect his mild decrease in hemoglobin hematocrit may be due to blood loss from trauma 3 weeks ago since he is on Plavix i.e. retroperitoneal hematoma. My opinion EKG blood work or imaging is not indicated. Patient's history and physical is consistent with paroxysmal benign positional vertigo. Patient ambulated successfully with no vertiginous symptoms. His gait was normal and not ataxic. I was informed at 0646 that the believes he is anemic and believes he needs to have a blood count. Once I completed documentation another patient I went into the room to speak with her she was not there. I was gone explained to her why initially I did not order CBC. Conjunctivitis pink he does not appear pale. However since is requesting blood count CBC was obtained without differential. The nurse informing the reason that I was not able to speak to her is because she went home. History & Record Review Additional record(s) reviewed:: Prior inpatient record (Admitted for symptomatic anemia), Prior outpatient record (Urgent care visit July 2022 for contusion of the coccyx.) and Prior ED visit (Patient was referred to cardiology by Dr. Margarita Porter. Patient required transfusion for symptomatic anemia December 24, 2022.) Lab Data Attestation: I reviewed the patient's lab results. Lab results narrative: Patient has mild anemia. His H&H is improved from prior. Labs: Laboratory Results - last 24 hr 12/14/24 07:00 WBC 5.0 RBC 4.36 L Hgb 11.3 L Hct 35.6 L MCV 81.7 MCH 25.9 L MCHC 31.7 L RDW Std Deviation 43.1 RDW Coeff of Kemi 14.7 H Plt Count 136 L MPV 12.6 H Discharge Plan Triage Chief Complaint: Dizziness ED Provider: Ezra Taylor Dx/Rx/DC Orders Clinical Impression: Benign paroxysmal positional vertigo, H/O aortic valve replacement, Presence of stent in coronary artery, Essential hypertension, Mixed hyperlipidemia, Chronic anemia Instructions: ED BPV Vertigo Prescriptions: No Action nitroglycerin [Nitrolingual] 400 mcg/spray spray,non-aerosol 0.4 mg Translingual Q5M PRN (Reason: chest pain) Qty: 4.9 3RF Rx Instructions: until response; do not exceed 3 doses per event alfuzosin [Uroxatral] 10 mg tablet extended release 24 hr 10 mg PO DAILY Rx Instructions: administer after the same meal each day betamethasone dipropionate 0.05 % lotion 1 applic topical DAILY metformin 1,000 MG tablet 1,000 mg PO BIDCM omeprazole 20 MG capsule,delayed release(DR/EC) 20 mg PO DAILY Ozempic 0.25 mg or 0.5 mg(2 mg/1.5 mL) pen injector 0.5 mg SUBCUT QWEEK Patient Comments: INJECT 0.25 MGUSUBCUTANEOUSLY ONCE WEEKLY clopidogrel 75 mg tablet 75 mg PO DAILY Qty: 90 3RF metoprolol succinate 50 mg tablet extended release 24 hr 50 mg PO DAILY Qty: 90 3RF isosorbide mononitrate 120 mg tablet extended release 24 hr See Rx Instructions .ROUTE .COMPLEX Qty: 90 4RF Dose Instruction: TAKE 1 TABLET BY MOUTH EVERY MORNING Rx Instructions: TAKE 1 TABLET BY MOUTH EVERY MORNING rosuvastatin 20 mg tablet See Rx Instructions .ROUTE .COMPLEX Qty: 90 4RF Dose Instruction: TAKE 1 TABLET BY MOUTH ONCE DAILY Rx Instructions: TAKE 1 TABLET BY MOUTH ONCE DAILY losartan 25 mg tablet 25 mg PO DAILY Qty: 90 3RF Primary Care Provider: Margarita Porter Referrals: Margarita Porter NP-C [Primary Care Provider] - As Needed Print Language: Green[place]ic Disposition Disposition: Home, Self Care
[2024-12-14 05:53] VITALS: BP 177/79
[2024-12-14 07:05] LABS: Hematocrit 35.6 % (40-54); Hemoglobin 11.3 g/dL (13.0-16.5); Mean Corp Hgb Conc 31.7 g/dL (32-36); Mean Corpuscular Volume 81.7 fL (80-94); Mean Platelet Vol. 12.6 fl (6.2-12.0); Platelet Count 136 K/mm3 (150-450); RBC Distribution Width CV 14.7 % (11.6-14.6); RBC Distribution Width SD 43.1 fl (35.1-43.9); Red Blood Count 4.36 M/mm3 (4.6-6.2); White Blood Count 5.0 K/mm3 (4.4-11.0)
[2024-12-14 07:19] VITALS: BP 168/74; PULSE 77; RESP 16; TEMP 36.8; O2SAT 96
== END 2024-12-14 07:19 | disposition home or self-care (01) ==
PROVIDERS: Emergency Provider Emergency Medicine; PCP Nurse Practitioner Family; Visit Provider Emergency Medicine
DX: H81.10 Benign paroxysmal vertigo, unspecified ear (principal); I11.0 Hypertensive heart disease with heart failure; I50.9 Heart failure, unspecified; I47.20 Ventricular tachycardia, unspecified; E11.51 Type 2 diabetes mellitus with diabetic peripheral angiopathy without gangrene; I25.10 Atherosclerotic heart disease of native coronary artery without angina pectoris; D64.9 Anemia, unspecified; I35.0 Nonrheumatic aortic (valve) stenosis; E78.2 Mixed hyperlipidemia; Z95.2 Presence of prosthetic heart valve; Z95.1 Presence of aortocoronary bypass graft; Z79.02 Long term (current) use of antithrombotics/antiplatelets; Z79.84 Long term (current) use of oral hypoglycemic drugs; Z79.85 Long-term (current) use of injectable non-insulin antidiabetic drugs; Z79.899 Other long term (current) drug therapy
CPT/HCPCS: 85027; 99282; A4216

== ENCOUNTER → 2025-01-03 | Outpatient (CLI) | payer OTHER, SELFPAY ==
[2025-01-03 06:58] LABS: Hematocrit 33.3 % (40-54); Hemoglobin 10.7 g/dL (13.0-16.5); Immature Granulocytes Count 0.020 X10^3/uL (0.0-0.0); Mean Corp Hgb Conc 32.1 g/dL (32-36); Mean Corpuscular Volume 80.0 fL (80-94); Mean Platelet Vol. 12.0 fl (6.2-12.0); NRBC Flagged by Analyzer 0 % (0-5); Platelet Count 125 K/mm3 (150-450); RBC Distribution Width CV 14.7 % (11.6-14.6); RBC Distribution Width SD 42.5 fl (35.1-43.9); Red Blood Count 4.16 M/mm3 (4.6-6.2); White Blood Count 5.8 K/mm3 (4.4-11.0)
== END | disposition home or self-care (01) ==
LOC: LAB 06:37
PROVIDERS: PCP Nurse Practitioner Family; Referring Provider Nurse Practitioner Family; Visit Provider Nurse Practitioner Family
DX: D62 Acute posthemorrhagic anemia (principal); R79.89 Other specified abnormal findings of blood chemistry
CPT/HCPCS: 36415; 84443; 85025